=== PATIENT | female | born 1970 | race American Indian/Alaskan Native ===

== ENCOUNTER 2017-08-13 09:54 | Inpatient (IN) | payer MEDICAID, OTHER ==
--- NOTE | 2017-08-13 11:08 | C.PDOC ---
History Of Present Illness 47 y/o female with htn, cva, esrd (M/W/F) c/o epigastric pain since thursday. pt sts she was seen at [facility] [place] for same , told 'her levels were elevated' and discharged home with no pain medications for pancreatitis. pt sts pain persists , with no associated nausea or diarrhea. no fever. pt sts one episode of vomiting yesterday. no cp or sob. pt is limited historian. Time Seen by Provider: 08/13/17 10:11 Chief Complaint (Nursing): Abdominal Pain History Per: Patient History/Exam Limitations: no limitations Onset/Duration Of Symptoms: Days Current Symptoms Are (Timing): Still Present Past Medical History Reviewed: Historical Data, Nursing Documentation, Vital Signs Vital Signs: Last Vital Signs Temp 98.1 F 08/13/17 16:45 Pulse 74 08/13/17 16:45 Resp 20 08/13/17 16:45 BP 152/94 H 08/13/17 16:45 Pulse Ox 98 08/13/17 17:44 - Medical History PMH: CHF, HTN, End Stage Renal Disease Surgical History: No Surg Hx Family History: States: No Known Family Hx - Social History Hx Alcohol Use: No Hx Substance Use: No - Immunization History Hx Tetanus Toxoid Vaccination: No Hx Influenza Vaccination: No Hx Pneumococcal Vaccination: No Review Of Systems Constitutional: Negative for: Fever, Chills Gastrointestinal: Positive for: Abdominal Pain. Negative for: Nausea, Vomiting , Diarrhea Genitourinary: Negative for: Dysuria, Vaginal Bleeding Musculoskeletal: Negative for: Back Pain Skin: Negative for: Rash Physical Exam - Physical Exam Appears: Non-toxic, No Acute Distress Skin: Warm, Dry, No Rash Head: Atraumatic, Normacephalic Eye(s): bilateral: Normal Inspection Oral Mucosa: Moist Neck: Normal ROM, Supple Cardiovascular: Rhythm Regular Respiratory: Normal Breath Sounds, No Rales, No Rhonchi, No Wheezing Gastrointestinal/Abdominal: Soft, Tenderness (mi,delvis; epigastric tenderness), No Distention, No Guarding, No Rebound Extremity: No Pedal Edema, Capillary Refill (<2 seconds) Neurological/Psych: Oriented x3, Normal Speech, Normal Cognition ED Course And Treatment - Laboratory Results Result Diagrams: 08/13/17 14:00 08/13/17 14:00 O2 Sat by Pulse Oximetry: 98 (RA) Pulse Ox Interpretation: Normal Medical Decision Making Medical Decision Making: pt with hx pancreatitis, c/o epigastric pain x 4 days. long delay in getting blood from patient given she is hd patient and has difficult vasculature. pt given 2 percocet with decreased pain, now reports pain 8/10 while lying in no apparent discomfort on her stretcher. pt to be admottied to [facility] , keep npo and contact nephology. discussed need for hd tomorrow with Dr Escalona, covering for Dr Garcia. Disposition Discussed With : Phylicia Vega Doctor Will See Patient In The: Office Counseled Patient/Family Regarding: Diagnosis - Disposition Disposition: HOSPITALIZED Disposition Time: 15:28 Condition: GOOD - Clinical Impression Clinical Impression: Pancreatitis - PA / CONSOLE OPERATOR / Resident Statement MD/DO has reviewed & agrees with the documentation as recorded. - Scribe Statement The provider has reviewed the documentation as recorded by the Ravinibjesus Gallo All medical record entries made by the Ravinibjesus were at my direction and personally dictated by me. I have reviewed the chart and agree that the record accurately reflects my personal performance of the history, physical exam, medical decision making, and the department course for this patient. I have also personally directed, reviewed, and agree with the discharge instructions and disposition.
[2017-08-13] MEDS ORDERED: Oxycodone/Acetaminophen 5/325 mg Tab PO STA (12:41)
[2017-08-13] MEDS ORDERED: Oxycodone/Acetaminophen 5/325 mg Tab ONE (12:56)
[2017-08-13 14:05] LABS: BASO # 0.1 K/uL (0.0-0.2); BASO % 0.6 % (0.0-2.0); EOS # 0.1 K/uL (0.0-0.7); EOS % 1.4 % (0.0-4.0); HEMOGLOBIN 9.9 g/dL (11.0-16.0); LYMPH # 1.8 K/uL (1.0-4.3); LYMPH % 21.1 % (20.0-40.0); MEAN CELL VOLUME 77.8 fL (81.0-99.0); MEAN CORPUSCULAR HEMOGLOBIN 25.9 pg (27.0-31.0); MEAN CORPUSCULAR HGB CONC 33.3 g/dL (33.0-37.0); MEAN PLATELET VOLUME 8.2 fL (7.2-11.7); MONO # 0.6 K/uL (0.0-0.8); MONO % 6.8 % (0.0-10.0); NEUT # 5.9 K/uL (1.8-7.0); NEUT % 70.1 % (50.0-75.0); RBC 3.82 Mil/uL (3.80-5.20); RED CELL DISTRIBUTION WIDTH 19.4 % (11.5-14.5); WHITE BLOOD COUNT 8.4 K/uL (4.8-10.8)
[2017-08-13 14:14] LABS: INR 1.1; PROTHROMBIN TIME 11.8 SECONDS (9.7-12.2)
[2017-08-13 14:38] LABS: ALB/GLOB RATIO 1.3 (1.0-2.1); ALBUMIN 4.3 g/dL (3.5-5.0); CALCIUM 9.6 mg/dl (8.6-10.4)
[2017-08-13] MEDS: Dextrose 5%/0.45% NS 1,000 ML IV SCH (18:15)
--- NOTE | 2017-08-13 18:30 | CP.PCM.HP ---
History of Present Illness - History of Present Illness History of Present Illness: pt came for abd pain nausea for few days and elevated lipase Present on Admission - Present on Admission Any Indicators Present on Admission: No Review of Systems - Review of Systems Systems not reviewed;Unavailable: Acuity of Condition - Constitutional Constitutional: Fatigue - EENT Eyes: As Per HPI Ears: As Per HPI Nose/Mouth/Throat: As Per HPI - Breasts Breasts: As Per HPI - Cardiovascular Cardiovascular: As Per HPI - Respiratory Respiratory: Dyspnea on Exertion - Gastrointestinal Gastrointestinal: Abdominal Pain, Bloating, Nausea - Genitourinary Additional comments: esrf on dialysis - Reproductive: Female Reproductive:Female: As Per HPI - Menstruation Menstruation: As Per HPI - Musculoskeletal Musculoskeletal: As Per HPI - Integumentary Integumentary: As Per HPI - Psychiatric Psychiatric: As Per HPI - Hematologic/Lymphatic Hematologic: As Per HPI Past Patient History - Past Social History Smoking Status: Current Some Days Smoker - CARDIAC Hx Congestive Heart Failure: Yes Hx Hypertension: Yes - ENDOCRINE/METABOLIC Hx Diabetes Mellitus Type 2: Yes - PSYCHIATRIC Hx Substance Use: No Meds Allergies/Adverse Reactions: Allergies Allergy/AdvReac Type Severity Reaction Status Date / Time No Known Allergies Allergy Verified 08/13/17 10:06 Physical Exam - Constitutional Appears: In Acute Distress - Head Exam Head Exam: NORMAL INSPECTION - ENT Exam ENT Exam: Mucous Membranes Dry - Neck Exam Neck exam: Positive for: Full Rom - Respiratory Exam Respiratory Exam: Decreased Breath Sounds - Cardiovascular Exam Cardiovascular Exam: REGULAR RHYTHM - GI/Abdominal Exam GI & Abdominal Exam: Distended, Tenderness - Rectal Exam Rectal Exam: NORMAL INSPECTION - Extremities Exam Extremities exam: Positive for: normal inspection - Back Exam Back exam: NORMAL INSPECTION - Neurological Exam Neurological exam: Alert, Oriented x3 - Psychiatric Exam Psychiatric exam: Normal Mood - Skin Skin Exam: Normal Color Results - Vital Signs Recent Vital Signs: Last Vital Signs Temp 98.1 F 08/13/17 16:45 Pulse 74 08/13/17 16:45 Resp 20 08/13/17 16:45 BP 152/94 H 08/13/17 16:45 Pulse Ox 98 08/13/17 17:46 - Labs Result Diagrams: 08/13/17 14:00 08/13/17 14:00 Labs: Laboratory Results - last 24 hr 08/13/17 08/13/17 08/13/17 14:00 14:00 14:00 WBC 8.4 RBC 3.82 Hgb 9.9 L Hct 29.7 L MCV 77.8 L MCH 25.9 L MCHC 33.3 RDW 19.4 H Plt Count 212 MPV 8.2 Neut % (Auto) 70.1 Lymph % (Auto) 21.1 [place] % (Auto) 6.8 Eos % (Auto) 1.4 Baso % (Auto) 0.6 Neut # (Auto) 5.9 Lymph # (Auto) 1.8 [place] # (Auto) 0.6 Eos # (Auto) 0.1 Baso # (Auto) 0.1 PT 11.8 INR 1.1 APTT 32 Sodium 144 Potassium 3.7 Chloride 94 L Carbon Dioxide 36 H Anion Gap 18 BUN 44 H Creatinine 6.1 H Est GFR ( Amer) 9 Est GFR (Non-Af Amer) 7 Random Glucose 102 Calcium 9.6 Total Bilirubin 0.5 AST 19 ALT 19 Alkaline Phosphatase 322 H Total Protein 7.6 Albumin 4.3 Globulin 3.3 Albumin/Globulin Ratio 1.3 Lipase 642 H Assessment & Plan - Assessment and Plan (Free Text) Assessment: ac pancreatitis ESRF ON DIALYSIS HTN ANEAMIA Plan: ADMIT NPO REPEAT [facility] DIALYSIS - Date & Time Date: 08/13/17 Time: 18:33
[2017-08-14 04:33] LABS: SQUAMOUS EPITHIAL 11 /hpf (0-5); URINE BACTERIA RARE (<OCC); URINE BILIRUBIN NEGATIVE (NEGATIVE); URINE BLOOD 1+ (NEGATIVE); URINE CLARITY Hazy (Clear); URINE COLOR Yellow (YELLOW); URINE GLUCOSE (UA) NORMAL (Normal); URINE LEUKOCYTE ESTERASE TRACE Leu/uL (Negative); URINE PROTEIN 2+ mg/dL (NEGATIVE); URINE UROBILINOGEN NORMAL mg/dL (0.2-1.0)
[2017-08-14 04:45] LABS: BARBITURATES, UR NEGATIVE (NEGATIVE); BENZODIAZEPINES, UR NEGATIVE (NEGATIVE); OPIATES, UR NEGATIVE (NEGATIVE); PHENCYCLIDINE, UR NEGATIVE (NEGATIVE)
[2017-08-14] MEDS: Dextrose 5%/0.45% NS 1,000 ML IV SCH ×2 (06:16→21:28)
[2017-08-14] MEDS ORDERED: Ciprofloxacin 400mg/200ml D5W 400 MG/200 ML BAG IVPB STA (10:53)
--- NOTE | 2017-08-14 11:10 | CP.PCM.PN ---
Subjective - Date & Time of Evaluation Date of Evaluation: 08/14/17 Time of Evaluation: 11:08 - Subjective Subjective: still has mid abd pain no nausea still npo Objective - Vital Signs/Intake and Output Vital Signs (last 24 hours): Temp Pulse Resp BP Pulse Ox 98.1 F 80 20 184/63 H 98 08/14/17 08:38 08/14/17 08:38 08/14/17 08:38 08/14/17 08:38 08/14/17 08:38 Intake and Output: 08/14/17 08/14/17 06:59 18:59 Intake Total 1200 Output Total 0 Balance 1200 - Medications Medications: Current Medications Heparin Sodium (Porcine) (Heparin) 5,000 units SC Q12 [facility] Last Admin: 08/14/17 09:47 Dose: 5,000 units Dextrose/Sodium Chloride (Dextrose 5%/0.45% Ns 1000 Ml) 1,000 mls @ 80 mls/hr IV .[id number] [facility] Last Admin: 08/14/17 06:16 Dose: 80 mls/hr Ciprofloxacin (Cipro 400mg/200ml Dsw) 400 mg in 200 mls @ 133 mls/hr IVPB STAT STA PRN Reason: Protocol Stop: 08/14/17 12:23 Losartan Potassium (Cozaar) 100 mg PO DAILY [facility] Last Admin: 08/14/17 09:47 Dose: 100 mg Morphine Sulfate (Morphine) 1 mg IVP Q6 PRN PRN Reason: Pain, moderate (4-7) Last Admin: 08/14/17 09:47 Dose: 1 mg - Labs Labs: 08/13/17 14:00 08/13/17 14:00 PT 11.8 SECONDS (9.7-12.2) 08/13/17 14:00 INR 1.1 08/13/17 14:00 APTT 32 SECONDS (21-34) 08/13/17 14:00 - Constitutional Appears: Non-toxic - Head Exam Head Exam: NORMAL INSPECTION - Eye Exam Eye Exam: Normal appearance Pupil Exam: NORMAL ACCOMODATION - ENT Exam ENT Exam: Mucous Membranes Moist - Neck Exam Neck Exam: Full ROM - Respiratory Exam Respiratory Exam: Clear to Ausculation Bilateral - Cardiovascular Exam Cardiovascular Exam: REGULAR RHYTHM - GI/Abdominal Exam GI & Abdominal Exam: Tenderness, Normal Bowel Sounds - Back Exam Back Exam: NORMAL INSPECTION - Neurological Exam Neurological Exam: Normal Gait - Psychiatric Exam Psychiatric exam: Normal Affect - Skin Skin Exam: Normal Color Assessment and Plan - Assessment and Plan (Free Text) Assessment: acute pancreatitis ESRF HTN DM Plan: CONT NPO REATE LAB
--- NOTE | 2017-08-14 13:07 | CP.PCM.CON ---
History of Present Illness - History of Present Illness History of Present Illness: Nephrology Consultation Note: Assessment: Stable chronic pancreatitis Hypertensive Chronic Kidney Disease (I12.0) End stage renal disease (N18.6) dependence on hemodialysis (Z99.2) (MWF) via AVF Anemia (D64.9), Hyperphosphatemia (E83.39), Secondary Hyperparathyroidism (E21.1 ), HTN (I12.0) Plan: Will plan for HD today as ordered. Continue with Nephrovite 1 tab/day. PRBC as needed for anemia. on DARINEL with dialysis as last Hb 9.9 Continue with phos binders, check phos level Continue with calcitriol. BP control with meds as ordered. Patient on RAAS jhony as losartan 100 mg/day Glycemic control, Dialysis consistent diet Further work up/management as per primary team Dose meds/antibiotics (if needed) for ESRD status. Avoid fleets enema/magnesium based laxatives. Thanks for allowing me to participate in care of your patient. Will follow patient with you. Please call if any Qs Dr Ananda Escalona Office: [phone] Chief Complaint; pain abdomen HPI: Pt is a 47 F with hx of ESRD on hemodialysis (MWF) via AVF , last dialysis wed, chronic anemia, hyperphosphatemia, secondary hyperparathyroidism, hypertension and chronic pancreatitis presented with complaints of pain abdomen Renal consult requested for ESRD management. ROS: pt not much interested in talking Cardiovascular: No chest pain. Pulmonary: No shortness of breath Gastrointestinal: improved abdominal pain No nausea. No vomiting. Genitourinary: No pain while urinating. Denies blood in urine. All other negative except as mentioned in HPI Physical Examination: General Appearance: Comfortable, in no acute respiratory distress, somewhat unco -operative . Vitals reviewed and noted as below Head; Atraumatic, normocephalic ENT: no ulcers no thrush. Tongue is midline. Oropharynx: no rash or ulcers. EYES: Pupils are equal, round and reactive to light accommodation. Eye muscles and extraocular movement intact. Sclera is anicteric. Neck; supple no lymphadenopathy, no thyromegaly or bruit Lungs: Normal respiratory rate/effort. Breath sounds bilateral equal and clear Heart: Normal rate. s1s2 normal. No rub or gallop. Extremities: no edema. No varicose veins Neurological: Patient is alert, awake and oriented to person, place and time. No focal deficit. Strength bilateral appropriate and equal Skin: Warm and dry. Normal turgor. No rash. Palpitation: Normal elasticity for age Abdomen: Abdomen is soft. Bowel sounds +. There is no abdominal tenderness, no guarding/rigidity or organomegaly Psych: normal insight and flat affect/mood MSK: no joint tenderness or swelling. Digits and nails normal, no deformity : kidney or bladder not palpable Access: AVF Labs/imaging reviewed. Past medical history, past surgical history, family history, social history, allergy reviewed and noted as below Family Hx: no hx of CKD. Non contributory Past Patient History - Past Medical History & Family History Past Medical History?: Yes - Past Social History Smoking Status: Never Smoked - CARDIAC Hx Congestive Heart Failure: Yes Hx Hypertension: Yes - RENAL Date of Last Dialysis Treatment: 08/12/17 - ENDOCRINE/METABOLIC Hx Diabetes Mellitus Type 2: Yes - MUSCULOSKELETAL/RHEUMATOLOGICAL Hx Falls: No - PSYCHIATRIC Hx Substance Use: No Meds Allergies/Adverse Reactions: Allergies Allergy/AdvReac Type Severity Reaction Status Date / Time No Known Allergies Allergy Verified 08/13/17 10:06 - Medications Medications: Current Medications Epoetin Rosalio (Procrit) 4,000 unit IV MWF [facility] Heparin Sodium (Porcine) (Heparin) 5,000 units SC Q12 [facility] Last Admin: 08/14/17 09:47 Dose: 5,000 units Dextrose/Sodium Chloride (Dextrose 5%/0.45% Ns 1000 Ml) 1,000 mls @ 80 mls/hr IV .[id number] [facility] Last Admin: 08/14/17 06:16 Dose: 80 mls/hr Losartan Potassium (Cozaar) 100 mg PO DAILY [facility] Last Admin: 08/14/17 09:47 Dose: 100 mg Morphine Sulfate (Morphine) 1 mg IVP Q6 PRN PRN Reason: Pain, moderate (4-7) Last Admin: 08/14/17 09:47 Dose: 1 mg Vitamin B Complex/Vit C/Folic Acid (Nephro-Divya) 1 tab PO 0800 [facility] Results - Vital Signs Recent Vital Signs: Last Vital Signs Temp 98.1 F 08/14/17 08:38 Pulse 80 08/14/17 08:38 Resp 20 08/14/17 08:38 BP 184/63 H 08/14/17 08:38 Pulse Ox 98 08/14/17 08:38 - Labs Result Diagrams: 08/13/17 14:00 08/13/17 14:00 Labs: Laboratory Results - last 24 hr 08/13/17 08/13/17 08/13/17 14:00 14:00 14:00 WBC 8.4 RBC 3.82 Hgb 9.9 L Hct 29.7 L MCV 77.8 L MCH 25.9 L MCHC 33.3 RDW 19.4 H Plt Count 212 MPV 8.2 Neut % (Auto) 70.1 Lymph % (Auto) 21.1 [place] % (Auto) 6.8 Eos % (Auto) 1.4 Baso % (Auto) 0.6 Neut # (Auto) 5.9 Lymph # (Auto) 1.8 [place] # (Auto) 0.6 Eos # (Auto) 0.1 Baso # (Auto) 0.1 PT 11.8 INR 1.1 APTT 32 Sodium 144 Potassium 3.7 Chloride 94 L Carbon Dioxide 36 H Anion Gap 18 BUN 44 H Creatinine 6.1 H Est GFR ( Amer) 9 Est GFR (Non-Af Amer) 7 POC Glucose (mg/dL) Random Glucose 102 Calcium 9.6 Total Bilirubin 0.5 AST 19 ALT 19 Alkaline Phosphatase 322 H Total Protein 7.6 Albumin 4.3 Globulin 3.3 Albumin/Globulin Ratio 1.3 Lipase 642 H Urine Color Urine Clarity Urine pH Ur Specific [place] Urine Protein Urine Glucose (UA) Urine Ketones Urine Blood Urine Nitrate Urine Bilirubin Urine Urobilinogen Ur Leukocyte Esterase Urine WBC (Auto) Urine RBC (Auto) Ur Squamous Epith Cells Urine Bacteria Urine Opiates Screen Urine Methadone Screen Ur Barbiturates Screen Ur Phencyclidine Scrn Ur Amphetamines Screen U Benzodiazepines Scrn U Oth Cocaine Metabols U Cannabinoids Screen 08/14/17 08/14/17 08/14/17 04:24 04:24 08:01 WBC RBC Hgb Hct MCV MCH MCHC RDW Plt Count MPV Neut % (Auto) Lymph % (Auto) [place] % (Auto) Eos % (Auto) Baso % (Auto) Neut # (Auto) Lymph # (Auto) [place] # (Auto) Eos # (Auto) Baso # (Auto) PT INR APTT Sodium Potassium Chloride Carbon Dioxide Anion Gap BUN Creatinine Est GFR ( Amer) Est GFR (Non-Af Amer) POC Glucose (mg/dL) Random Glucose Calcium Total Bilirubin AST ALT Alkaline Phosphatase Total Protein Albumin Globulin Albumin/Globulin Ratio Lipase 296 Urine Color Yellow Urine Clarity Hazy Urine pH 9.0 Ur Specific [place] 1.009 Urine Protein 2+ H Urine Glucose (UA) Normal Urine Ketones Negative Urine Blood 1+ H Urine Nitrate Negative Urine Bilirubin Negative Urine Urobilinogen Normal Ur Leukocyte Esterase Trace Urine WBC (Auto) 6 H Urine RBC (Auto) 11 H Ur Squamous Epith Cells 11 H Urine Bacteria Rare Urine Opiates Screen Negative Urine Methadone Screen Negative Ur Barbiturates Screen Negative Ur Phencyclidine Scrn Negative Ur Amphetamines Screen Negative U Benzodiazepines Scrn Negative U Oth Cocaine Metabols Negative U Cannabinoids Screen Negative 08/14/17 11:15 WBC RBC Hgb Hct MCV MCH MCHC RDW Plt Count MPV Neut % (Auto) Lymph % (Auto) [place] % (Auto) Eos % (Auto) Baso % (Auto) Neut # (Auto) Lymph # (Auto) [place] # (Auto) Eos # (Auto) Baso # (Auto) PT INR APTT Sodium Potassium Chloride Carbon Dioxide Anion Gap BUN Creatinine Est GFR ( Amer) Est GFR (Non-Af Amer) POC Glucose (mg/dL) 107 Random Glucose Calcium Total Bilirubin AST ALT Alkaline Phosphatase Total Protein Albumin Globulin Albumin/Globulin Ratio Lipase Urine Color Urine Clarity Urine pH Ur Specific [place] Urine Protein Urine Glucose (UA) Urine Ketones Urine Blood Urine Nitrate Urine Bilirubin Urine Urobilinogen Ur Leukocyte Esterase Urine WBC (Auto) Urine RBC (Auto) Ur Squamous Epith Cells Urine Bacteria Urine Opiates Screen Urine Methadone Screen Ur Barbiturates Screen Ur Phencyclidine Scrn Ur Amphetamines Screen U Benzodiazepines Scrn U Oth Cocaine Metabols U Cannabinoids Screen
[2017-08-14] MEDS: EPOETIN ALFA 4,000 UNIT/ML ML Dialysis IV SCH (15:52)
[2017-08-14] MEDS ORDERED: Dextrose 50% SYRINGE Inj (50 ml) IV ONE (18:00)
[2017-08-15] MEDS: Dextrose 5%/0.45% NS 1,000 ML IV SCH ×2 (02:22→07:45)
[2017-08-15] MEDS: Multivitamin Vitamin B Complex (Nephro-Vite) Tab PO SCH (08:03)
--- NOTE | 2017-08-15 10:06 | CP.PCM.PN ---
Subjective - Date & Time of Evaluation Date of Evaluation: 08/15/17 Time of Evaluation: 10:04 - Subjective Subjective: pt has no nausea no pain hungry lipase dowen will start diet Objective - Vital Signs/Intake and Output Vital Signs (last 24 hours): Temp Pulse Resp BP Pulse Ox 98.9 F 68 20 154/94 H 96 08/15/17 08:57 08/15/17 08:57 08/15/17 08:57 08/15/17 08:57 08/15/17 08:57 Intake and Output: 08/15/17 08/15/17 06:59 18:59 Intake Total 650 Balance 650 - Medications Medications: Current Medications Amlodipine Besylate (Norvasc) 5 mg PO DAILY [facility] Epoetin Rosalio (Procrit) 4,000 unit IV MWF [facility] Last Admin: 08/14/17 15:52 Dose: 4,000 unit Heparin Sodium (Porcine) (Heparin) 5,000 units SC Q12 [facility] Last Admin: 08/15/17 09:26 Dose: 5,000 units Dextrose/Sodium Chloride (Dextrose 5%/0.45% Ns 1000 Ml) 1,000 mls @ 80 mls/hr IV .[id number] [facility] Last Admin: 08/15/17 02:22 Dose: 80 mls/hr Losartan Potassium (Cozaar) 100 mg PO DAILY [facility] Last Admin: 08/15/17 09:26 Dose: 100 mg Morphine Sulfate (Morphine) 1 mg IVP Q6 PRN PRN Reason: Pain, moderate (4-7) Last Admin: 08/15/17 06:27 Dose: 1 mg Vitamin B Complex/Vit C/Folic Acid (Nephro-Divya) 1 tab PO 0800 [facility] Last Admin: 08/15/17 08:03 Dose: 1 tab - Labs Labs: 08/13/17 14:00 08/13/17 14:00 PT 11.8 SECONDS (9.7-12.2) 08/13/17 14:00 INR 1.1 08/13/17 14:00 APTT 32 SECONDS (21-34) 08/13/17 14:00 - Constitutional Appears: Non-toxic - Head Exam Head Exam: NORMAL INSPECTION - Eye Exam Eye Exam: Normal appearance Pupil Exam: NORMAL ACCOMODATION - ENT Exam ENT Exam: Mucous Membranes Moist - Neck Exam Neck Exam: Full ROM - Respiratory Exam Respiratory Exam: Clear to Ausculation Bilateral - Cardiovascular Exam Cardiovascular Exam: REGULAR RHYTHM - GI/Abdominal Exam GI & Abdominal Exam: Soft - Rectal Exam Rectal Exam: NORMAL INSPECTION - Extremities Exam Extremities Exam: Normal Inspection - Back Exam Back Exam: NORMAL INSPECTION - Neurological Exam Neurological Exam: Alert, Normal Gait, Oriented x3 - Psychiatric Exam Psychiatric exam: Normal Affect - Skin Skin Exam: Normal Color Assessment and Plan - Assessment and Plan (Free Text) Assessment: ac pancreatitis improved dm esrf Plan: start diet if tolerated d/c home
--- NOTE | 2017-08-15 18:18 | CP.PCM.PN ---
Subjective - Date & Time of Evaluation Date of Evaluation: 08/15/17 Time of Evaluation: 18:17 - Subjective Subjective: Nephrology Consultation Note: Assessment: Stable chronic pancreatitis Hypertensive Chronic Kidney Disease (I12.0) End stage renal disease (N18.6) dependence on hemodialysis (Z99.2) (MWF) via AVF Anemia (D64.9), Hyperphosphatemia (E83.39), Secondary Hyperparathyroidism (E21.1 ), HTN (I12.0) Plan: Will plan for HD thursday as ordered. Continue with Nephrovite 1 tab/day. PRBC as needed for anemia. on DARINEL with dialysis as last Hb 9.9 Continue with phos binders, check phos level Continue with calcitriol. BP control with meds as ordered. Patient on RAAS jhony as losartan 100 mg/ day. started norvasc as well Glycemic control, Dialysis consistent diet Further work up/management as per primary team Dose meds/antibiotics (if needed) for ESRD status. Avoid fleets enema/magnesium based laxatives. Thanks for allowing me to participate in care of your patient. Will follow patient with you. Please call if any Qs Dr Ananda Escalona Office: [phone] Chief Complaint; pain abdomen HPI: Pt is a 47 F with hx of ESRD on hemodialysis (MWF) via AVF , last dialysis wed, chronic anemia, hyperphosphatemia, secondary hyperparathyroidism, hypertension and chronic pancreatitis presented with complaints of pain abdomen Renal consult requested for ESRD management. ROS: pt not much interested in talking Cardiovascular: No chest pain. Pulmonary: No shortness of breath Gastrointestinal: improved abdominal pain No nausea. No vomiting. Genitourinary: No pain while urinating. Denies blood in urine. All other negative except as mentioned in HPI Physical Examination: General Appearance: Comfortable, in no acute respiratory distress, somewhat unco -operative . Vitals reviewed and noted as below Head; Atraumatic, normocephalic ENT: no ulcers no thrush. Tongue is midline. Oropharynx: no rash or ulcers. EYES: Pupils are equal, round and reactive to light accommodation. Eye muscles and extraocular movement intact. Sclera is anicteric. Neck; supple no lymphadenopathy, no thyromegaly or bruit Lungs: Normal respiratory rate/effort. Breath sounds bilateral equal and clear Heart: Normal rate. s1s2 normal. No rub or gallop. Extremities: no edema. No varicose veins Neurological: Patient is alert, awake and oriented to person, place and time. No focal deficit. Strength bilateral appropriate and equal Skin: Warm and dry. Normal turgor. No rash. Palpitation: Normal elasticity for age Abdomen: Abdomen is soft. Bowel sounds +. There is no abdominal tenderness, no guarding/rigidity or organomegaly Psych: normal insight and flat affect/mood MSK: no joint tenderness or swelling. Digits and nails normal, no deformity : kidney or bladder not palpable Access: AVF Labs/imaging reviewed. Past medical history, past surgical history, family history, social history, allergy reviewed and noted as below Family Hx: no hx of CKD. Non contributory Objective - Vital Signs/Intake and Output Vital Signs (last 24 hours): Temp Pulse Resp BP Pulse Ox 98.6 F 72 20 151/87 H 100 08/15/17 16:00 08/15/17 16:00 08/15/17 16:00 08/15/17 16:00 08/15/17 16:00 Intake and Output: 08/15/17 08/15/17 06:59 18:59 Intake Total 1410 Balance 1410 - Medications Medications: Current Medications Amlodipine Besylate (Norvasc) 5 mg PO DAILY [facility] Last Admin: 08/15/17 10:38 Dose: 5 mg Ciprofloxacin (Cipro) 250 mg PO BID [facility] PRN Reason: Protocol Last Admin: 08/15/17 11:05 Dose: 250 mg Epoetin Rosalio (Procrit) 4,000 unit IV MWF [facility] Last Admin: 08/14/17 15:52 Dose: 4,000 unit Heparin Sodium (Porcine) (Heparin) 5,000 units SC Q12 [facility] Last Admin: 08/15/17 09:26 Dose: 5,000 units Losartan Potassium (Cozaar) 100 mg PO DAILY [facility] Last Admin: 08/15/17 09:26 Dose: 100 mg Morphine Sulfate (Morphine) 1 mg IVP Q6 PRN PRN Reason: Pain, moderate (4-7) Last Admin: 08/15/17 14:15 Dose: 1 mg Vitamin B Complex/Vit C/Folic Acid (Nephro-Divya) 1 tab PO 0800 [facility] Last Admin: 08/15/17 08:03 Dose: 1 tab - Labs Labs: 07/05/18 14:00 08/13/17 14:00 PT 11.8 SECONDS (9.7-12.2) 08/13/17 14:00 INR 1.1 08/13/17 14:00 APTT 32 SECONDS (21-34) 08/13/17 14:00
[2017-08-16] MEDS: Multivitamin Vitamin B Complex (Nephro-Vite) Tab PO SCH (08:24)
--- NOTE | 2017-08-16 11:58 | CP.PCM.PN ---
Subjective - Date & Time of Evaluation Date of Evaluation: 08/16/17 Time of Evaluation: 11:58 - Subjective Subjective: Nephrology Consultation Note: Assessment: Stable Acute on chronic pancreatitis Hypertensive Chronic Kidney Disease (I12.0) End stage renal disease (N18.6) dependence on hemodialysis (Z99.2) (MWF) via AVF Anemia (D64.9), Hyperphosphatemia (E83.39), Secondary Hyperparathyroidism (E21.1 ), HTN (I12.0) Plan: Will plan for HD thursday as ordered. Continue with Nephrovite 1 tab/day. PRBC as needed for anemia. on DARINEL with dialysis as last Hb 9.9 Continue with phos binders, check phos level Continue with calcitriol. BP control with meds as ordered. Patient on RAAS jhony as losartan 100 mg/ day. started norvasc as well Glycemic control, Dialysis consistent diet Further work up/management as per primary team Dose meds/antibiotics (if needed) for ESRD status. Avoid fleets enema/magnesium based laxatives. Thanks for allowing me to participate in care of your patient. Will follow patient with you. Please call if any Qs Dr Ananda Escalona Office: [phone] Chief Complaint; pain abdomen HPI: Pt is a 47 F with hx of ESRD on hemodialysis (MWF) via AVF , last dialysis wed, chronic anemia, hyperphosphatemia, secondary hyperparathyroidism, hypertension and chronic pancreatitis presented with complaints of pain abdomen Renal consult requested for ESRD management. ROS: pt not much interested in talking Cardiovascular: No chest pain. Pulmonary: No shortness of breath Gastrointestinal: improved abdominal pain No nausea. No vomiting. Genitourinary: No pain while urinating. Denies blood in urine. All other negative except as mentioned in HPI Physical Examination: General Appearance: Comfortable, in no acute respiratory distress, somewhat unco -operative . Vitals reviewed and noted as below Head; Atraumatic, normocephalic ENT: no ulcers no thrush. Tongue is midline. Oropharynx: no rash or ulcers. EYES: Pupils are equal, round and reactive to light accommodation. Eye muscles and extraocular movement intact. Sclera is anicteric. Neck; supple no lymphadenopathy, no thyromegaly or bruit Lungs: Normal respiratory rate/effort. Breath sounds bilateral equal and clear Heart: Normal rate. s1s2 normal. No rub or gallop. Extremities: no edema. No varicose veins Neurological: Patient is alert, awake and oriented to person, place and time. No focal deficit. Strength bilateral appropriate and equal Skin: Warm and dry. Normal turgor. No rash. Palpitation: Normal elasticity for age Abdomen: Abdomen is soft. Bowel sounds +. There is no abdominal tenderness, no guarding/rigidity or organomegaly Psych: normal insight and flat affect/mood MSK: no joint tenderness or swelling. Digits and nails normal, no deformity : kidney or bladder not palpable Access: AVF Labs/imaging reviewed. Past medical history, past surgical history, family history, social history, allergy reviewed and noted as below Family Hx: no hx of CKD. Non contributory Objective - Vital Signs/Intake and Output Vital Signs (last 24 hours): Temp Pulse Resp BP Pulse Ox 98.4 F 71 20 146/85 97 08/16/17 08:00 08/16/17 08:00 08/16/17 08:00 08/16/17 08:00 08/16/17 08:00 Intake and Output: 08/16/17 08/16/17 06:59 18:59 Intake Total 120 Balance 120 - Medications Medications: Current Medications Amlodipine Besylate (Norvasc) 5 mg PO DAILY [facility] Last Admin: 08/16/17 09:38 Dose: 5 mg Ciprofloxacin (Cipro) 250 mg PO BID [facility] PRN Reason: Protocol Last Admin: 08/16/17 09:38 Dose: 250 mg Epoetin Rosalio (Procrit) 4,000 unit IV MWF [facility] Last Admin: 08/14/17 15:52 Dose: 4,000 unit Heparin Sodium (Porcine) (Heparin) 5,000 units SC Q12 [facility] Last Admin: 08/16/17 09:41 Dose: Not Given Losartan Potassium (Cozaar) 100 mg PO DAILY [facility] Last Admin: 08/16/17 09:38 Dose: 100 mg Morphine Sulfate (Morphine) 1 mg IVP Q6 PRN PRN Reason: Pain, moderate (4-7) Last Admin: 08/16/17 02:16 Dose: 1 mg Vitamin B Complex/Vit C/Folic Acid (Nephro-Divya) 1 tab PO 0800 [facility] Last Admin: 08/16/17 08:24 Dose: 1 tab - Labs Labs: 08/13/17 14:00 08/13/17 14:00 PT 11.8 SECONDS (9.7-12.2) 08/13/17 14:00 INR 1.1 08/13/17 14:00 APTT 32 SECONDS (21-34) 08/13/17 14:00
--- NOTE | 2017-08-16 12:45 | CP.PCM.PN ---
Subjective - Date & Time of Evaluation Date of Evaluation: 08/16/17 Time of Evaluation: 12:43 - Subjective Subjective: on liquid diet less pain no nausea Objective - Vital Signs/Intake and Output Vital Signs (last 24 hours): Temp Pulse Resp BP Pulse Ox 98.4 F 71 20 146/85 97 08/16/17 08:00 08/16/17 08:00 08/16/17 08:00 08/16/17 08:00 08/16/17 08:00 Intake and Output: 08/16/17 08/16/17 06:59 18:59 Intake Total 120 Balance 120 - Medications Medications: Current Medications Amlodipine Besylate (Norvasc) 5 mg PO DAILY [facility] Last Admin: 08/16/17 09:38 Dose: 5 mg Ciprofloxacin (Cipro) 250 mg PO BID [facility] PRN Reason: Protocol Last Admin: 08/16/17 09:38 Dose: 250 mg Epoetin Rosalio (Procrit) 4,000 unit IV MWF [facility] Last Admin: 08/14/17 15:52 Dose: 4,000 unit Heparin Sodium (Porcine) (Heparin) 5,000 units SC Q12 [facility] Last Admin: 08/16/17 09:41 Dose: Not Given Losartan Potassium (Cozaar) 100 mg PO DAILY [facility] Last Admin: 08/16/17 09:38 Dose: 100 mg Morphine Sulfate (Morphine) 1 mg IVP Q6 PRN PRN Reason: Pain, moderate (4-7) Last Admin: 08/16/17 02:16 Dose: 1 mg Vitamin B Complex/Vit C/Folic Acid (Nephro-Divya) 1 tab PO 0800 [facility] Last Admin: 08/16/17 08:24 Dose: 1 tab - Labs Labs: 08/13/17 14:00 08/13/17 14:00 PT 11.8 SECONDS (9.7-12.2) 08/13/17 14:00 INR 1.1 08/13/17 14:00 APTT 32 SECONDS (21-34) 08/13/17 14:00 - Constitutional Appears: Non-toxic - Head Exam Head Exam: NORMAL INSPECTION - Eye Exam Eye Exam: Normal appearance - ENT Exam ENT Exam: Mucous Membranes Moist - Neck Exam Neck Exam: Normal Inspection - Respiratory Exam Respiratory Exam: Clear to Ausculation Bilateral - Cardiovascular Exam Cardiovascular Exam: REGULAR RHYTHM - GI/Abdominal Exam GI & Abdominal Exam: Normal Bowel Sounds - Rectal Exam Rectal Exam: NORMAL INSPECTION - Exam Exam: NORMAL INSPECTION - Extremities Exam Extremities Exam: Normal Inspection - Back Exam Back Exam: NORMAL INSPECTION - Neurological Exam Neurological Exam: Awake, Normal Gait, Oriented x3 - Psychiatric Exam Psychiatric exam: Normal Affect - Skin Skin Exam: Intact Assessment and Plan - Assessment and Plan (Free Text) Assessment: pancreatitis improving dm esrf generalised weekness Plan: increase diet pt for dialysis in am then d/c
[2017-08-17] MEDS: Multivitamin Vitamin B Complex (Nephro-Vite) Tab PO SCH (08:09)
[2017-08-17] MEDS: EPOETIN ALFA 4,000 UNIT/ML ML Dialysis IV SCH (10:47)
--- NOTE | 2017-08-17 12:24 | CP.PCM.PN ---
Subjective - Date & Time of Evaluation Date of Evaluation: 08/17/17 Time of Evaluation: 12:23 - Subjective Subjective: Nephrology Consultation Note: Assessment: Stable Acute on chronic pancreatitis Hypertensive Chronic Kidney Disease (I12.0) End stage renal disease (N18.6) dependence on hemodialysis (Z99.2) (MWF) via AVF Anemia (D64.9), Hyperphosphatemia (E83.39), Secondary Hyperparathyroidism (E21.1 ), HTN (I12.0) Plan: Will plan for HD today as ordered. Continue with Nephrovite 1 tab/day. PRBC as needed for anemia. on DARINEL with dialysis as last Hb 9.9 Continue with phos binders, check phos level BP control with meds as ordered. Patient on RAAS jhony as losartan 100 mg/ day. norvasc increased to 10 mg Glycemic control, Dialysis consistent diet Further work up/management as per primary team Dose meds/antibiotics (if needed) for ESRD status. Avoid fleets enema/magnesium based laxatives. d/c planning as per primary team. stable from renal perspective Thanks for allowing me to participate in care of your patient. Will follow patient with you. Please call if any Qs Dr Ananda Escalona Office: [phone] Chief Complaint; pain abdomen HPI: Pt is a 47 F with hx of ESRD on hemodialysis (MWF) via AVF , last dialysis wed, chronic anemia, hyperphosphatemia, secondary hyperparathyroidism, hypertension and chronic pancreatitis presented with complaints of pain abdomen Renal consult requested for ESRD management. ROS: Cardiovascular: No chest pain. Pulmonary: No shortness of breath Gastrointestinal: improved abdominal pain No nausea. No vomiting. Genitourinary: No pain while urinating. Denies blood in urine. All other negative except as mentioned in HPI Physical Examination: seen on HD General Appearance: Comfortable, in no acute respiratory distress co-operative . Vitals reviewed and noted as below Head; Atraumatic, normocephalic ENT: no ulcers no thrush. Tongue is midline. Oropharynx: no rash or ulcers. EYES: Pupils are equal, round and reactive to light accommodation. Eye muscles and extraocular movement intact. Sclera is anicteric. Neck; supple no lymphadenopathy, no thyromegaly or bruit Lungs: Normal respiratory rate/effort. Breath sounds bilateral equal and clear Heart: Normal rate. s1s2 normal. No rub or gallop. Extremities: no edema. No varicose veins Neurological: Patient is alert, awake and oriented to person, place and time. No focal deficit. Strength bilateral appropriate and equal Skin: Warm and dry. Normal turgor. No rash. Palpitation: Normal elasticity for age Abdomen: Abdomen is soft. Bowel sounds +. There is no abdominal tenderness, no guarding/rigidity or organomegaly Psych: normal insight and flat affect/mood MSK: no joint tenderness or swelling. Digits and nails normal, no deformity : kidney or bladder not palpable Access: AVF Labs/imaging reviewed. Past medical history, past surgical history, family history, social history, allergy reviewed and noted as below Family Hx: no hx of CKD. Non contributory Objective - Vital Signs/Intake and Output Vital Signs (last 24 hours): Temp Pulse Resp BP Pulse Ox 98 F 83 16 161/92 H 96 08/17/17 09:05 08/17/17 09:05 08/17/17 09:05 08/17/17 12:03 08/17/17 09:05 Intake and Output: 08/17/17 08/17/17 06:59 18:59 Intake Total 240 Balance 240 - Medications Medications: Current Medications Amlodipine Besylate (Norvasc) 10 mg PO QPM [facility] Ciprofloxacin (Cipro) 250 mg PO BID [facility] PRN Reason: Protocol Last Admin: 08/17/17 12:03 Dose: 250 mg Epoetin Rosalio (Procrit) 4,000 unit IV MWF [facility] Last Admin: 08/17/17 10:47 Dose: 4,000 unit Losartan Potassium (Cozaar) 100 mg PO DAILY [facility] Last Admin: 08/17/17 12:03 Dose: 100 mg Morphine Sulfate (Morphine) 1 mg IVP Q6 PRN PRN Reason: Pain, moderate (4-7) Last Admin: 08/16/17 02:16 Dose: 1 mg Vitamin B Complex/Vit C/Folic Acid (Nephro-Divya) 1 tab PO 0800 [facility] Last Admin: 08/17/17 08:09 Dose: 1 tab - Labs Labs: 08/13/17 14:00 08/13/17 14:00 PT 11.8 SECONDS (9.7-12.2) 08/13/17 14:00 INR 1.1 08/13/17 14:00 APTT 32 SECONDS (21-34) 08/13/17 14:00
[2017-08-17 12:58] VITALS: RESP 20
[2017-08-17 13:39] VITALS: PULSE 91; TEMP 98.4; O2SAT 100
[2017-08-17 14:18] VITALS: BP 145/93
--- NOTE | 2017-08-17 18:02 | CP.PCM.PN ---
Subjective - Date & Time of Evaluation Date of Evaluation: 08/17/17 Time of Evaluation: 11:00 - Subjective Subjective: Awake, alert, no acute distress. Objective - Vital Signs/Intake and Output Vital Signs (last 24 hours): Temp Pulse Resp BP Pulse Ox 98.4 F 91 H 20 145/93 H 100 08/17/17 13:00 08/17/17 13:00 08/17/17 13:00 08/17/17 14:15 08/17/17 13:00 Intake and Output: 08/17/17 08/17/17 06:59 18:59 Intake Total 240 200 Balance 240 200 - Labs Labs: 08/13/17 14:00 08/13/17 14:00 PT 11.8 SECONDS (9.7-12.2) 08/13/17 14:00 INR 1.1 08/13/17 14:00 APTT 32 SECONDS (21-34) 08/13/17 14:00 Assessment and Plan - Assessment and Plan (Free Text) Assessment: Patient admitted with abdominal pain, pancreatitis, seen and examined after dialysis today.Alert and orientedx 3 no acute pain or distress. Prescription given for the newly added amlodipine. Advised to follow up with PMD in 1 week.
== END 2017-08-17 16:02 | disposition home or self-care (01) | DRG 204 ==
LOC: C.ER 09:54 → C.9E 15:29 → C.3T 15:53 → OBSVTOIN 18:11
PROVIDERS: ADMIT Internal Medicine; ATTEND Internal Medicine
PROC: 5A1D70Z Performance of Urinary Filtration, Intermittent, Less than 6 Hours Per Day (ICD-10-PCS; principal; 2017-08-14)
PROC: 5A1D70Z Performance of Urinary Filtration, Intermittent, Less than 6 Hours Per Day (ICD-10-PCS; 2017-08-17)
DX: K85.90 Acute pancreatitis without necrosis or infection, unspecified (principal); I13.2 Hypertensive heart and chronic kidney disease with heart failure and with stage 5 chronic kidney disease, or end stage renal disease; E11.22 Type 2 diabetes mellitus with diabetic chronic kidney disease; I50.9 Heart failure, unspecified; N18.6 End stage renal disease; E83.39 Other disorders of phosphorus metabolism; D64.9 Anemia, unspecified; K86.1 Other chronic pancreatitis; N25.81 Secondary hyperparathyroidism of renal origin; F17.210 Nicotine dependence, cigarettes, uncomplicated; Z99.2 Dependence on renal dialysis

== ENCOUNTER 2017-09-19 03:18 | Inpatient (IN) | payer MEDICAID ==
[2017-09-19] MEDS ORDERED: Sodium Chloride 0.9% 1,000 ML IV ONE (03:53)
[2017-09-19] MEDS ORDERED: Sodium Chloride 0.9% 1,000 ML ONE (04:11)
[2017-09-19 04:20] LABS: BASO # 0.1 K/uL (0.0-0.2); BASO % 1.2 % (0.0-2.0); EOS # 0.1 K/uL (0.0-0.7); EOS % 1.9 % (0.0-4.0); HEMOGLOBIN 10.3 g/dL (11.0-16.0); LYMPH # 1.5 K/uL (1.0-4.3); LYMPH % 22.1 % (20.0-40.0); MEAN CELL VOLUME 79.2 fL (81.0-99.0); MEAN CORPUSCULAR HEMOGLOBIN 26.3 pg (27.0-31.0); MEAN CORPUSCULAR HGB CONC 33.2 g/dL (33.0-37.0); MEAN PLATELET VOLUME 8.4 fL (7.2-11.7); MONO # 0.4 K/uL (0.0-0.8); MONO % 6.3 % (0.0-10.0); NEUT # 4.6 K/uL (1.8-7.0); NEUT % 68.5 % (50.0-75.0); NRBC % 0.1 % (0.0-2.0); RBC 3.92 Mil/uL (3.80-5.20); RED CELL DISTRIBUTION WIDTH 17.3 % (11.5-14.5); WHITE BLOOD COUNT 6.7 K/uL (4.8-10.8)
[2017-09-19 04:35] LABS: ALB/GLOB RATIO 1.3 (1.0-2.1); ALBUMIN 4.3 g/dL (3.5-5.0); CALCIUM 9.4 mg/dl (8.6-10.4)
--- NOTE | 2017-09-19 05:12 | C.PDOC ---
History Of Present Illness 47 y/o female with htn, cva, esrd (M/W/F), hx of pancreatitis BIBA with c/o epigastric pain since early today associated with nausea, one episode of vomiting. pt sts pain persists later today. Otherwise, pt denies fever, cp ,sob , diarrhea, back pain. Pt admits, completed dialysis early Thursday. pt is limited historian Time Seen by Provider: 09/19/17 03:53 Chief Complaint (Nursing): Abdominal Pain History Per: Patient Past Medical History Reviewed: Historical Data, Nursing Documentation, Vital Signs Vital Signs: Last Vital Signs Temp 98.1 F 09/19/17 03:31 Pulse 83 09/19/17 03:31 Resp 20 09/19/17 03:31 BP 165/95 H 09/19/17 03:31 Pulse Ox 98 09/19/17 05:31 - Medical History PMH: CHF, HTN, Pancreatitis, End Stage Renal Disease - [facility] (08/13/17) Family History: States: No Known Family Hx - Social History Hx Alcohol Use: No Hx Substance Use: No - Immunization History Hx Tetanus Toxoid Vaccination: No Hx Influenza Vaccination: No Hx Pneumococcal Vaccination: No Review Of Systems Except As Marked, All Systems Reviewed And Found Negative. Constitutional: Negative for: Fever, Chills ENT: Negative for: Throat Pain Cardiovascular: Negative for: Chest Pain, Palpitations Respiratory: Negative for: Cough, Shortness of Breath Gastrointestinal: Positive for: Nausea, Vomiting, Abdominal Pain Musculoskeletal: Negative for: Neck Pain, Back Pain Skin: Negative for: Rash Neurological: Negative for: Altered Mental Status, Headache, Dizziness Physical Exam - Physical Exam Appears: Well, Non-toxic, No Acute Distress Skin: Normal Color, Warm Head: Normacephalic Eye(s): bilateral: PERRL Nose: No Flaring, No Discharge Oral Mucosa: Moist Throat: No Erythema Neck: Trachea Midline, Supple Cardiovascular: Rhythm Regular, No Murmur, No JVD Respiratory: No Decreased Breath Sounds, No Accessory Muscle Use, No Stridor, No Wheezing Gastrointestinal/Abdominal: Soft, Tenderness (mod epigastric), No Distention, No Guarding, No Rebound Back: No CVA Tenderness Extremity: Normal ROM, Other (Right upper arm AV fistula, (+) thrill) Neurological/Psych: Oriented x3, Normal Speech ED Course And Treatment - Laboratory Results Result Diagrams: 09/19/17 04:18 09/19/17 04:18 Lab Interpretation: Abnormal O2 Sat by Pulse Oximetry: 98 Pulse Ox Interpretation: Normal Progress Note: Blood work review, abnormla and c/w acute apncreactitis. case discussed with and admission arranged. Disposition - Disposition Disposition: HOSPITALIZED Disposition Time: 05:12 Condition: STABLE Forms: [facility] ([place] Citizen) - Clinical Impression Clinical Impression: Pancreatitis
--- NOTE | 2017-09-19 10:52 | CP.PCM.HP ---
History of Present Illness - History of Present Illness History of Present Illness: pt came in for ac abd pain nausea and vomitingfor 1 day Present on Admission - Present on Admission Any Indicators Present on Admission: No Review of Systems - Review of Systems Systems not reviewed;Unavailable: Acuity of Condition - Constitutional Constitutional: Fatigue - EENT Eyes: As Per HPI Ears: As Per HPI Nose/Mouth/Throat: As Per HPI - Breasts Breasts: As Per HPI - Cardiovascular Cardiovascular: Dyspnea - Respiratory Respiratory: Dyspnea on Exertion - Gastrointestinal Gastrointestinal: Abdominal Pain, Bloating, Nausea, Vomiting - Genitourinary Genitourinary: As Per HPI - Reproductive: Female Reproductive:Female: As Per HPI - Menstruation Menstruation: As Per HPI - Musculoskeletal Musculoskeletal: As Per HPI - Integumentary Integumentary: As Per HPI - Neurological Neurological: As Per HPI - Psychiatric Psychiatric: As Per HPI - Endocrine Endocrine: Fatigue - Hematologic/Lymphatic Additional comments: aneamia esrf on dialysis Past Patient History - Infectious Disease Hx of Infectious Diseases: None - Past Medical History & Family History Past Medical History?: Yes - Past Social History Smoking Status: Never Smoked - CARDIAC Hx Congestive Heart Failure: Yes Hx Hypertension: Yes - RENAL Hx Dialysis: Yes Type of Dialysis Access: av shunt right Date of Last Dialysis Treatment: 09/18/17 - ENDOCRINE/METABOLIC Hx Diabetes Mellitus Type 2: Yes - MUSCULOSKELETAL/RHEUMATOLOGICAL Hx Falls: No - GASTROINTESTINAL Hx Pancreatitis: Yes - PSYCHIATRIC Hx Substance Use: No - SURGICAL HISTORY Hx Surgeries: No - ANESTHESIA Hx Anesthesia: No Meds Allergies/Adverse Reactions: Allergies Allergy/AdvReac Type Severity Reaction Status Date / Time No Known Allergies Allergy Verified 09/19/17 03:36 Physical Exam - Constitutional Appears: In Acute Distress - Head Exam Head Exam: ATRAUMATIC - Eye Exam Eye Exam: Normal appearance Pupil Exam: NORMAL ACCOMODATION - ENT Exam ENT Exam: Mucous Membranes Moist, Normal Exam - Neck Exam Neck exam: Positive for: Full Rom - Respiratory Exam Respiratory Exam: Decreased Breath Sounds - Cardiovascular Exam Cardiovascular Exam: REGULAR RHYTHM, +S1, +S2, +S4 - GI/Abdominal Exam GI & Abdominal Exam: Tenderness - Exam Exam: NORMAL INSPECTION - Extremities Exam Extremities exam: Positive for: normal inspection Results - Vital Signs Recent Vital Signs: Last Vital Signs Temp 98.3 F 09/19/17 10:10 Pulse 73 08/11/18 10:10 Resp 20 09/19/17 10:10 BP 157/101 H 09/19/17 10:10 Pulse Ox 98 09/19/17 10:10 - Labs Result Diagrams: 09/19/17 04:18 09/19/17 04:18 Labs: Laboratory Results - last 24 hr 09/19/17 09/19/17 04:18 04:18 WBC 6.7 RBC 3.92 Hgb 10.3 L Hct 31.0 L MCV 79.2 L MCH 26.3 L MCHC 33.2 RDW 17.3 H Plt Count 218 MPV 8.4 Neut % (Auto) 68.5 Lymph % (Auto) 22.1 [place]erry % (Auto) 6.3 Eos % (Auto) 1.9 Baso % (Auto) 1.2 Neut # (Auto) 4.6 Lymph # (Auto) 1.5 [place] # (Auto) 0.4 Eos # (Auto) 0.1 Baso # (Auto) 0.1 Sodium 143 Potassium 4.4 Chloride 95 L Carbon Dioxide 34 H Anion Gap 19 BUN 26 H Creatinine 4.4 H Est GFR ( Amer) 13 Est GFR (Non-Af Amer) 11 Random Glucose 93 Calcium 9.4 Total Bilirubin 0.5 AST 25 ALT 15 Alkaline Phosphatase 316 H Total Protein 7.5 Albumin 4.3 Globulin 3.3 Albumin/Globulin Ratio 1.3 Amylase 172 H Lipase 356 H Assessment & Plan - Assessment and Plan (Free Text) Assessment: ac abd pain vomiting ac pancreatitis ESRF ANEAMIA HTN CHF PREDIABETIC Plan: PER ORDERS - Date & Time Date: 09/19/17 Time: 10:56
[2017-09-19] MEDS: Dextrose 5%/0.45% NS 1,000 ML IV SCH ×2 (20:32→21:50)
[2017-09-20 08:52] LABS: AMYLASE 111 U/L (30-110); LIPASE 42 U/L (23-300)
[2017-09-20] MEDS: Dextrose 5%/0.45% NS 1,000 ML IV SCH ×3 (09:30→21:34)
--- NOTE | 2017-09-20 10:33 | CP.PCM.PN ---
Subjective - Date & Time of Evaluation Date of Evaluation: 09/20/17 Time of Evaluation: 10:31 - Subjective Subjective: feels beter less pain lipase is better but still hi Objective - Vital Signs/Intake and Output Vital Signs (last 24 hours): Temp Pulse Resp BP Pulse Ox 98.2 F 70 20 172/73 H 95 09/20/17 07:27 09/20/17 07:27 09/20/17 07:27 09/20/17 07:27 09/20/17 07:27 Intake and Output: 09/20/17 09/20/17 06:59 18:59 Intake Total 640 600 Balance 640 600 - Medications Medications: Current Medications Amlodipine Besylate (Norvasc) 10 mg PO DAILY [facility] Last Admin: 09/19/17 11:51 Dose: 10 mg Diphenhydramine HCl (Benadryl) 25 mg PO Q6 PRN PRN Reason: Itching / Pruritus Last Admin: 09/19/17 21:47 Dose: 25 mg Dextrose/Sodium Chloride (Dextrose 5%/0.45% Ns 1000 Ml) 1,000 mls @ 80 mls/hr IV .[id number] [facility] Last Admin: 09/19/17 21:50 Dose: 80 mls/hr Morphine Sulfate (Morphine) 2 mg IVP Q6 PRN PRN Reason: Pain, moderate (4-7) Last Admin: 09/20/17 06:45 Dose: 2 mg - Labs Labs: 09/19/17 04:18 09/19/17 04:18 - Constitutional Appears: Non-toxic - Head Exam Head Exam: NORMAL INSPECTION - Eye Exam Eye Exam: Normal appearance Pupil Exam: NORMAL ACCOMODATION - ENT Exam ENT Exam: Mucous Membranes Moist - Neck Exam Neck Exam: Normal Inspection - Respiratory Exam Respiratory Exam: Clear to Ausculation Bilateral - Cardiovascular Exam Cardiovascular Exam: REGULAR RHYTHM - GI/Abdominal Exam GI & Abdominal Exam: Soft, Tenderness - Extremities Exam Extremities Exam: Normal Capillary Refill - Neurological Exam Neurological Exam: Alert, Awake, Oriented x3 - Psychiatric Exam Psychiatric exam: Normal Affect - Skin Skin Exam: Normal Color Assessment and Plan - Assessment and Plan (Free Text) Assessment: ac pancreatitis improving esrf Plan: repeate lab stay npo
--- NOTE | 2017-09-20 20:34 | CP.PCM.CON ---
History of Present Illness - History of Present Illness History of Present Illness: renal consult note hpi: 47 yr old with esrd, htn, sec hyperpth, abdominal pain, is admitted for pancreatitis. hd days are mwf with no missed hd sessions complete ros is negative pmh as above social hx no alcohol, non smoker. no drugs meds reviewed family hx reviewed vitals reviewed heent normal op moist no jvd ao times 3 s1s2 present no resp distress abd soft, tender upper abdomen, non distended skin normal no edema cooperative ' ESRD/pancreatitis/anemia/htn/dm sec hyperpth hd mwf, continue per schedule lytes reviewd bp resume home meds continue binders anemia epo as needed with hd Past Patient History - Infectious Disease Hx of Infectious Diseases: None - Past Medical History & Family History Past Medical History?: Yes - Past Social History Smoking Status: Never Smoked - CARDIAC Hx Congestive Heart Failure: Yes Hx Hypertension: Yes - RENAL Hx Dialysis: Yes Type of Dialysis Access: av shunt right Date of Last Dialysis Treatment: 09/18/17 - ENDOCRINE/METABOLIC Hx Diabetes Mellitus Type 2: Yes - MUSCULOSKELETAL/RHEUMATOLOGICAL Hx Falls: No - GASTROINTESTINAL Hx Pancreatitis: Yes - PSYCHIATRIC Hx Substance Use: No - SURGICAL HISTORY Hx Surgeries: No - ANESTHESIA Hx Anesthesia: No Meds Allergies/Adverse Reactions: Allergies Allergy/AdvReac Type Severity Reaction Status Date / Time No Known Allergies Allergy Verified 09/19/17 03:36 - Medications Medications: Current Medications Amlodipine Besylate (Norvasc) 10 mg PO DAILY [facility] Last Admin: 09/20/17 10:43 Dose: 10 mg Diphenhydramine HCl (Benadryl) 25 mg PO Q6 PRN PRN Reason: Itching / Pruritus Last Admin: 09/19/17 21:47 Dose: 25 mg Dextrose/Sodium Chloride (Dextrose 5%/0.45% Ns 1000 Ml) 1,000 mls @ 80 mls/hr IV .[id number] Last Admin: 09/20/17 10:57 Dose: 80 mls/hr Morphine Sulfate (Morphine) 2 mg IVP Q6 PRN PRN Reason: Pain, moderate (4-7) Last Admin: 09/20/17 18:38 Dose: 2 mg Results - Vital Signs Recent Vital Signs: Last Vital Signs Temp 98 F 09/20/17 16:00 Pulse 68 09/20/17 16:00 Resp 20 09/20/17 16:00 BP 152/79 H 09/20/17 16:00 Pulse Ox 97 09/20/17 16:00 - Labs Result Diagrams: 09/19/17 04:18 09/19/17 04:18 Labs: Laboratory Results - last 24 hr 09/20/17 09/20/17 08:24 08:24 Hemoglobin A1c 4.9 Amylase 111 H D Lipase 42
[2017-09-21] MEDS: Dextrose 5%/0.45% NS 1,000 ML IV SCH (12:10)
[2017-09-21 13:42] LABS: BASO % 0.6 % (0.0-2.0); EOS # 0.2 K/uL (0.0-0.7); EOS % 2.9 % (0.0-4.0); HEMOGLOBIN 10.1 g/dL (11.0-16.0); LYMPH # 0.9 K/uL (1.0-4.3); MEAN CELL VOLUME 79.2 fL (81.0-99.0); MEAN CORPUSCULAR HEMOGLOBIN 26.4 pg (27.0-31.0); MEAN CORPUSCULAR HGB CONC 33.3 g/dL (33.0-37.0); MEAN PLATELET VOLUME 8.6 fL (7.2-11.7); MONO # 0.5 K/uL (0.0-0.8); MONO % 6.3 % (0.0-10.0); NEUT # 5.5 K/uL (1.8-7.0); NEUT % 77.2 % (50.0-75.0); RBC 3.84 Mil/uL (3.80-5.20); RED CELL DISTRIBUTION WIDTH 16.5 % (11.5-14.5); WHITE BLOOD COUNT 7.1 K/uL (4.8-10.8)
[2017-09-21 14:16] LABS: ALB/GLOB RATIO 1.4 (1.0-2.1); ALBUMIN 4.2 g/dL (3.5-5.0); CALCIUM 9.2 mg/dl (8.6-10.4)
--- NOTE | 2017-09-21 15:16 | CP.PCM.PN ---
Subjective - Date & Time of Evaluation Date of Evaluation: 09/21/17 Time of Evaluation: 15:14 - Subjective Subjective: Nephrology Consultation Note: Assessment: Stable Acute on chronic pancreatitis Hypertensive Chronic Kidney Disease (I12.0) End stage renal disease (N18.6) dependence on hemodialysis (Z99.2) (MWF) via AVF Anemia (D64.9), Hyperphosphatemia (E83.39), Secondary Hyperparathyroidism (E21.1 ), HTN (I12.0) Plan: Will plan for HD today as ordered. Continue with Nephrovite 1 tab/day. PRBC as needed for anemia. not on DARINEL with dialysis as last Hb 10.1 and elevated BP Continue with phos binders BP control with meds as ordered. Patient added on RAAS jhony as losartan 100 mg/day. norvasc as 10 mg/day; continue Glycemic control, Dialysis consistent diet Further work up/management as per primary team Dose meds/antibiotics (if needed) for ESRD status. Avoid fleets enema/magnesium based laxatives. pt started on liquid diet will d/c IVF Thanks for allowing me to participate in care of your patient. Will follow patient with you. Please call if any Qs Dr Ananda Escalona Office: [phone] Chief Complaint; pain abdomen HPI: Pt is a 47 F with hx of ESRD on hemodialysis (MWF) via AVF , last dialysis wed, chronic anemia, hyperphosphatemia, secondary hyperparathyroidism, hypertension and chronic pancreatitis presented with complaints of pain abdomen Renal consult requested for ESRD management. ROS: Cardiovascular: No chest pain. Pulmonary: No shortness of breath Gastrointestinal: improved abdominal pain No nausea. No vomiting. Genitourinary: No pain while urinating. Denies blood in urine. All other negative except as mentioned in HPI Physical Examination: seen on HD General Appearance: Comfortable, in no acute respiratory distress co-operative . Vitals reviewed and noted as below Head; Atraumatic, normocephalic ENT: no ulcers no thrush. Tongue is midline. Oropharynx: no rash or ulcers. EYES: Pupils are equal, round and reactive to light accommodation. Eye muscles and extraocular movement intact. Sclera is anicteric. Neck; supple no lymphadenopathy, no thyromegaly or bruit Lungs: Normal respiratory rate/effort. Breath sounds bilateral equal and clear Heart: Normal rate. s1s2 normal. No rub or gallop. Extremities: no edema. No varicose veins Neurological: Patient is alert, awake and oriented to person, place and time. No focal deficit. Strength bilateral appropriate and equal Skin: Warm and dry. Normal turgor. No rash. Palpitation: Normal elasticity for age Abdomen: Abdomen is soft. Bowel sounds +. There is mild abdominal tenderness, no guarding/rigidity or organomegaly Psych: normal insight and flat affect/mood MSK: no joint tenderness or swelling. Digits and nails normal, no deformity : kidney or bladder not palpable Access: AVF Labs/imaging reviewed. Past medical history, past surgical history, family history, social history, allergy reviewed and noted as below Family Hx: no hx of CKD. Non contributory Objective - Vital Signs/Intake and Output Vital Signs (last 24 hours): Temp Pulse Resp BP Pulse Ox 97.4 F L 82 18 174/96 H 97 09/21/17 13:26 09/21/17 13:26 09/21/17 13:26 09/21/17 13:50 09/21/17 13:00 Intake and Output: 09/21/17 09/21/17 06:59 18:59 Intake Total 640 Balance 640 - Medications Medications: Current Medications Amlodipine Besylate (Norvasc) 10 mg PO DAILY [facility] Last Admin: 09/21/17 10:00 Dose: 10 mg Diphenhydramine HCl (Benadryl) 25 mg PO Q6 PRN PRN Reason: Itching / Pruritus Last Admin: 09/20/17 22:10 Dose: 25 mg Heparin Sodium (Porcine) (Heparin) 5,000 units SC Q12 [facility] Last Admin: 09/21/17 10:08 Dose: Not Given Dextrose/Sodium Chloride (Dextrose 5%/0.45% Ns 1000 Ml) 1,000 mls @ 80 mls/hr IV .[id number] [facility] Last Admin: 09/21/17 12:10 Dose: Not Given Morphine Sulfate (Morphine) 2 mg IVP Q6 PRN PRN Reason: Pain, moderate (4-7) Last Admin: 09/21/17 13:53 Dose: 2 mg - Labs Labs: 09/21/17 13:37 09/21/17 13:37
--- NOTE | 2017-09-21 17:13 | CP.PCM.PN ---
Subjective - Date & Time of Evaluation Date of Evaluation: 09/21/17 Time of Evaluation: 17:11 - Subjective Subjective: feels beter tolerating liquid has dialysis today Objective - Vital Signs/Intake and Output Vital Signs (last 24 hours): Temp Pulse Resp BP Pulse Ox 97.4 F L 82 18 174/96 H 97 09/21/17 13:26 09/21/17 13:26 09/21/17 13:26 09/21/17 13:50 09/21/17 13:00 Intake and Output: 09/21/17 09/21/17 06:59 18:59 Intake Total 640 Balance 640 - Medications Medications: Current Medications Amlodipine Besylate (Norvasc) 10 mg PO DAILY [facility] Last Admin: 09/21/17 10:00 Dose: 10 mg Diphenhydramine HCl (Benadryl) 25 mg PO Q6 PRN PRN Reason: Itching / Pruritus Last Admin: 09/20/17 22:10 Dose: 25 mg Heparin Sodium (Porcine) (Heparin) 5,000 units SC Q12 [facility] Last Admin: 09/21/17 10:08 Dose: Not Given Losartan Potassium (Cozaar) 100 mg PO QPM [facility] Morphine Sulfate (Morphine) 2 mg IVP Q6 PRN PRN Reason: Pain, moderate (4-7) Last Admin: 09/21/17 13:53 Dose: 2 mg - Labs Labs: 09/21/17 13:37 09/21/17 13:37 - Constitutional Appears: Non-toxic - Head Exam Head Exam: NORMAL INSPECTION - Eye Exam Eye Exam: Normal appearance Pupil Exam: NORMAL ACCOMODATION - ENT Exam ENT Exam: Mucous Membranes Moist - Neck Exam Neck Exam: Normal Inspection - Respiratory Exam Respiratory Exam: NORMAL BREATHING PATTERN - Cardiovascular Exam Cardiovascular Exam: REGULAR RHYTHM - GI/Abdominal Exam GI & Abdominal Exam: Normal Bowel Sounds - Rectal Exam Rectal Exam: NORMAL INSPECTION - Extremities Exam Extremities Exam: Normal Capillary Refill - Back Exam Back Exam: NORMAL INSPECTION - Neurological Exam Neurological Exam: Alert, Oriented x3 - Psychiatric Exam Psychiatric exam: Normal Mood Assessment and Plan - Assessment and Plan (Free Text) Assessment: ac pancreatitis improved esrf Plan: advance diet
[2017-09-21 18:22] VITALS: RESP 20
[2017-09-22 08:25] VITALS: TEMP 98; O2SAT 100
[2017-09-22 10:31] VITALS: BP 148/78; PULSE 71
--- NOTE | 2017-09-22 10:51 | CP.PCM.PN ---
Subjective - Date & Time of Evaluation Date of Evaluation: 09/22/17 Time of Evaluation: 10:48 - Subjective Subjective: pt feels comfortable tolerating diet had dialysis yesterday will d/c home today Objective - Vital Signs/Intake and Output Vital Signs (last 24 hours): Temp Pulse Resp BP Pulse Ox 98.0 F 71 20 148/78 100 09/22/17 07:00 09/22/17 10:30 09/22/17 07:00 09/22/17 10:30 09/22/17 07:00 Intake and Output: 09/22/17 09/22/17 06:59 18:59 Intake Total 200 Balance 200 - Medications Medications: Current Medications Amlodipine Besylate (Norvasc) 10 mg PO DAILY [facility] Last Admin: 09/22/17 10:29 Dose: 10 mg Diphenhydramine HCl (Benadryl) 25 mg PO Q6 PRN PRN Reason: Itching / Pruritus Last Admin: 09/21/17 18:49 Dose: 25 mg Heparin Sodium (Porcine) (Heparin) 5,000 units SC Q12 [facility] Last Admin: 09/22/17 10:31 Dose: Not Given Losartan Potassium (Cozaar) 100 mg PO QPM [facility] Last Admin: 09/21/17 18:50 Dose: 100 mg Morphine Sulfate (Morphine) 2 mg IVP Q6 PRN PRN Reason: Pain, moderate (4-7) Last Admin: 09/22/17 03:30 Dose: 2 mg - Labs Labs: 09/21/17 13:37 09/21/17 13:37 - Constitutional Appears: Non-toxic - Head Exam Head Exam: ATRAUMATIC, NORMAL INSPECTION - Eye Exam Eye Exam: Normal appearance Pupil Exam: NORMAL ACCOMODATION - ENT Exam ENT Exam: Normal Exam - Neck Exam Neck Exam: Full ROM - Respiratory Exam Respiratory Exam: NORMAL BREATHING PATTERN - Cardiovascular Exam Cardiovascular Exam: REGULAR RHYTHM - GI/Abdominal Exam GI & Abdominal Exam: Normal Bowel Sounds - Rectal Exam Rectal Exam: Deferred, NORMAL INSPECTION - Exam Exam: NORMAL INSPECTION - Extremities Exam Extremities Exam: Normal Inspection - Back Exam Back Exam: NORMAL INSPECTION - Psychiatric Exam Psychiatric exam: Normal Affect - Skin Skin Exam: Normal Color Assessment and Plan - Assessment and Plan (Free Text) Assessment: ac pancreatitis improved esrf cont dialysis ouout pt cont all med f/u in office
--- NOTE | 2017-09-22 10:52 | CP.PCM.PN ---
Subjective - Date & Time of Evaluation Date of Evaluation: 09/22/17 Time of Evaluation: 10:52 - Subjective Subjective: PATIENT IS ADMITTED FOR ACUTE PANCREATITIS AND ESRD AAO X3 / DENIES CHEST PAIN OR SOB NO SIGN OF DISTRESS NOTED Objective - Vital Signs/Intake and Output Vital Signs (last 24 hours): Temp Pulse Resp BP Pulse Ox 98.0 F 71 20 148/78 100 09/22/17 07:00 09/22/17 10:30 09/22/17 07:00 09/22/17 10:30 09/22/17 07:00 Intake and Output: 09/22/17 09/22/17 06:59 18:59 Intake Total 200 Balance 200 - Medications Medications: Current Medications Amlodipine Besylate (Norvasc) 10 mg PO DAILY [facility] Last Admin: 09/22/17 10:29 Dose: 10 mg Diphenhydramine HCl (Benadryl) 25 mg PO Q6 PRN PRN Reason: Itching / Pruritus Last Admin: 09/21/17 18:49 Dose: 25 mg Heparin Sodium (Porcine) (Heparin) 5,000 units SC Q12 [facility] Last Admin: 09/22/17 10:31 Dose: Not Given Losartan Potassium (Cozaar) 100 mg PO QPM [facility] Last Admin: 09/21/17 18:50 Dose: 100 mg Morphine Sulfate (Morphine) 2 mg IVP Q6 PRN PRN Reason: Pain, moderate (4-7) Last Admin: 09/22/17 03:30 Dose: 2 mg - Labs Labs: 09/21/17 13:37 09/21/17 13:37 Assessment and Plan - Assessment and Plan (Free Text) Assessment: PATIENT SEEN AND EXAMINED AT THE BEDSIDE LUNG SOUND CLEAR CAREY / B/P CONTROL ON MED DISCUSS WITH DR MOORE AND DR EPPS WHO CLEAR FOR DC FOLLOW UP WITH DR EPPS IN HER OFFICE 1-2 WEEK ---CALL FOR APPOINTMENT FOLLOW UP WITH YOUR MATERIALS SCHEDULER OUT PATIENT HEMODIALYSIS SCHEDULE HOME MEDICATION ORDER NEW PRESCRIPTION GIVEN LOSARTAN 100 MG BY MOUTH IN THE AFTERNOON STOP TAKING VALSARTAN PER DR MOORE ACTIVITY TOLERATED CALL DR EPPS OR GO TO THE EMERGENCY ROOM IF SYMPTOMS RETURN OR WORSENING DISCUSS WITH PATIENT WHO AGREE AND VERBALIZED UNDERSTANDING
--- NOTE | 2017-09-22 10:58 | CP.PCM.PN ---
Subjective - Date & Time of Evaluation Date of Evaluation: 09/22/17 Time of Evaluation: 10:57 - Subjective Subjective: Nephrology Consultation Note: Assessment: Stable Acute on chronic pancreatitis Hypertensive Chronic Kidney Disease (I12.0) End stage renal disease (N18.6) dependence on hemodialysis (Z99.2) (MWF) via AVF Anemia (D64.9), Hyperphosphatemia (E83.39), Secondary Hyperparathyroidism (E21.1 ), HTN (I12.0) Plan: Will plan for HD tomorrow as ordered. Continue with Nephrovite 1 tab/day. PRBC as needed for anemia. not on DARINEL with dialysis as last Hb 10.1 and elevated BP Continue with phos binders BP control with meds as ordered. Patient added on RAAS jhony as losartan 100 mg/day. norvasc as 10 mg/day; continue Glycemic control, Dialysis consistent diet Further work up/management as per primary team Dose meds/antibiotics (if needed) for ESRD status. Avoid fleets enema/magnesium based laxatives. pt stable for d/c from renal perspective when planned. Thanks for allowing me to participate in care of your patient. Will follow patient with you. Please call if any Qs. had d/w team Dr Ananda Escalona Office: [phone] Chief Complaint; pain abdomen better HPI: Pt is a 47 F with hx of ESRD on hemodialysis (MWF) via AVF , last dialysis wed, chronic anemia, hyperphosphatemia, secondary hyperparathyroidism, hypertension and chronic pancreatitis presented with complaints of pain abdomen Renal consult requested for ESRD management. ROS: Cardiovascular: No chest pain. Pulmonary: No shortness of breath Gastrointestinal: improved abdominal pain No nausea. No vomiting. Genitourinary: No pain while urinating. Denies blood in urine. All other negative except as mentioned in HPI Physical Examination: seen on HD General Appearance: Comfortable, in no acute respiratory distress co-operative . Vitals reviewed and noted as below Head; Atraumatic, normocephalic ENT: no ulcers no thrush. Tongue is midline. Oropharynx: no rash or ulcers. EYES: Pupils are equal, round and reactive to light accommodation. Eye muscles and extraocular movement intact. Sclera is anicteric. Neck; supple no lymphadenopathy, no thyromegaly or bruit Lungs: Normal respiratory rate/effort. Breath sounds bilateral equal and clear Heart: Normal rate. s1s2 normal. No rub or gallop. Extremities: no edema. No varicose veins Neurological: Patient is alert, awake and oriented to person, place and time. No focal deficit. Strength bilateral appropriate and equal Skin: Warm and dry. Normal turgor. No rash. Palpitation: Normal elasticity for age Abdomen: Abdomen is soft. Bowel sounds +. There is no abdominal tenderness, no guarding/rigidity or organomegaly Psych: normal insight and flat affect/mood MSK: no joint tenderness or swelling. Digits and nails normal, no deformity : kidney or bladder not palpable Access: AVF Labs/imaging reviewed. Past medical history, past surgical history, family history, social history, allergy reviewed and noted as below Family Hx: no hx of CKD. Non contributory Objective - Vital Signs/Intake and Output Vital Signs (last 24 hours): Temp Pulse Resp BP Pulse Ox 98.0 F 71 20 148/78 100 09/22/17 07:00 09/22/17 10:30 09/22/17 07:00 09/22/17 10:30 09/22/17 07:00 Intake and Output: 09/22/17 09/22/17 06:59 18:59 Intake Total 200 Balance 200 - Medications Medications: Current Medications Amlodipine Besylate (Norvasc) 10 mg PO DAILY [facility] Last Admin: 09/22/17 10:29 Dose: 10 mg Diphenhydramine HCl (Benadryl) 25 mg PO Q6 PRN PRN Reason: Itching / Pruritus Last Admin: 09/21/17 18:49 Dose: 25 mg Heparin Sodium (Porcine) (Heparin) 5,000 units SC Q12 [facility] Last Admin: 09/22/17 10:31 Dose: Not Given Losartan Potassium (Cozaar) 100 mg PO QPM [facility] Last Admin: 09/21/17 18:50 Dose: 100 mg Morphine Sulfate (Morphine) 2 mg IVP Q6 PRN PRN Reason: Pain, moderate (4-7) Last Admin: 09/22/17 03:30 Dose: 2 mg - Labs Labs: 09/21/17 13:37 09/21/17 13:37
== END 2017-09-22 15:21 | disposition home or self-care (01) | DRG 204 ==
LOC: C.ER 03:18 → C.9E 05:11 → C.5S 08:56
PROVIDERS: ADMIT Internal Medicine; ATTEND Internal Medicine
PROC: 5A1D70Z Performance of Urinary Filtration, Intermittent, Less than 6 Hours Per Day (ICD-10-PCS; principal; 2017-09-21)
DX: K85.90 Acute pancreatitis without necrosis or infection, unspecified (principal); N18.6 End stage renal disease; I50.9 Heart failure, unspecified; I13.2 Hypertensive heart and chronic kidney disease with heart failure and with stage 5 chronic kidney disease, or end stage renal disease; E11.22 Type 2 diabetes mellitus with diabetic chronic kidney disease; K86.1 Other chronic pancreatitis; N25.81 Secondary hyperparathyroidism of renal origin; D64.9 Anemia, unspecified; E83.39 Other disorders of phosphorus metabolism; Z99.2 Dependence on renal dialysis; Z86.73 Personal history of transient ischemic attack (TIA), and cerebral infarction without residual deficits

== ENCOUNTER 2017-10-10 12:19 | Inpatient (IN) | payer MEDICAID ==
--- NOTE | 2017-10-10 12:53 | C.PDOC ---
History Of Present Illness 47 y/o female, with PMHx of ESRD on hemodialysis Mon, Wed, Fri, presents to ED c /o abdominal pain, vomiting, and diarrhea. Notes pain is improving now. Pt last received dialysis yesterday. Denies fever, or other complaints. Time Seen by Provider: 10/10/17 12:34 Chief Complaint (Nursing): Dizziness/Lightheaded History Per: Patient History/Exam Limitations: no limitations Past Medical History Reviewed: Historical Data, Nursing Documentation, Vital Signs Vital Signs: Last Vital Signs Temp 98.0 F 10/11/17 08:00 Pulse 71 10/11/17 08:00 Resp 20 10/11/17 08:00 BP 127/77 10/11/17 08:00 Pulse Ox 95 10/11/17 08:00 - Medical History PMH: CHF, HTN, Pancreatitis, End Stage Renal Disease - [facility] (09/19/17) Family History: States: Unknown Family Hx - Social History Hx Alcohol Use: No Hx Substance Use: No - Immunization History Hx Tetanus Toxoid Vaccination: No Hx Influenza Vaccination: No Hx Pneumococcal Vaccination: No Review Of Systems Except As Marked, All Systems Reviewed And Found Negative. Constitutional: Negative for: Fever, Chills Gastrointestinal: Positive for: Nausea, Vomiting, Abdominal Pain, Diarrhea Genitourinary: Negative for: Dysuria, Frequency, Hematuria Physical Exam - Physical Exam Appears: Non-toxic, No Acute Distress Skin: Normal Color, Warm, Dry Head: Atraumatic, Normacephalic Eye(s): bilateral: Normal Inspection Oral Mucosa: Moist Cardiovascular: Rhythm Regular Respiratory: Normal Breath Sounds, No Rales, No Rhonchi, No Wheezing Gastrointestinal/Abdominal: Soft, Tenderness (minimal epigastric), No Guarding, No Rebound Back: No CVA Tenderness Extremity: Normal ROM Neurological/Psych: Oriented x3, Normal Speech ED Course And Treatment - Laboratory Results Result Diagrams: 10/10/17 13:39 10/10/17 13:39 ECG: Interpreted By Me, Viewed By Me ECG Rhythm: Sinus Rhythm Interpretation Of ECG: Non-specific ST/T wave changes. No interval change from previous. Rate From EC O2 Sat by Pulse Oximetry: 97 Pulse Ox Interpretation: Normal Medical Decision Making Medical Decision Making: ro gastriits pancreatits coltiis labs imagingpending Plan: EKG Blood work Protonix Elio noted elevated lipase. h/ o of pancreatitis. pt reports neg recent us at other instituion. bedside us does not shwo gallbladder patology. case discussed with dr muir. accepts for admission. further diagnostic imagign deferred to inpt. Disposition - Disposition Disposition: HOSPITALIZED Disposition Time: 15:33 Condition: STABLE - Clinical Impression Clinical Impression: Pancreatitis - Scribe Statement The provider has reviewed the documentation as recorded by the Scribe KP All medical record entries made by the Scribe were at my direction and personally dictated by me. I have reviewed the chart and agree that the record accurately reflects my personal performance of the history, physical exam, medical decision making, and the department course for this patient. I have also personally directed, reviewed, and agree with the discharge instructions and disposition. Decision To Admit - Pt Status Changed To: Hospital Disposition Of: Inpatient - Admit Certification Admit to Inpatient:: After my assessment, the patient will require hospitalization for at least two midnights. This is because of the severity of symptoms shown, intensity of services needed, and/or the medical risk in this patient being treated as an outpatient. - InPatient: Physician Admission Certification: I certify that this patient requires 2 or more midnights of care for the following reason:: elevated lipase - . Bed Request Type: Regular Admitting Physician: Phylicia Vega Patient Diagnosis: Pancreatitis
[2017-10-10 13:48] LABS: BASO # 0.1 K/uL (0.0-0.2); BASO % 0.9 % (0.0-2.0); EOS # 0.1 K/uL (0.0-0.7); EOS % 1.6 % (0.0-4.0); HEMOGLOBIN 11.2 g/dL (11.0-16.0); LYMPH % 14.2 % (20.0-40.0); MEAN CELL VOLUME 79.8 fL (81.0-99.0); MEAN CORPUSCULAR HEMOGLOBIN 26.5 pg (27.0-31.0); MEAN CORPUSCULAR HGB CONC 33.3 g/dL (33.0-37.0); MEAN PLATELET VOLUME 8.4 fL (7.2-11.7); MONO # 0.4 K/uL (0.0-0.8); MONO % 5.6 % (0.0-10.0); NEUT # 5.6 K/uL (1.8-7.0); NEUT % 77.7 % (50.0-75.0); RBC 4.23 Mil/uL (3.80-5.20); RED CELL DISTRIBUTION WIDTH 17.6 % (11.5-14.5); WHITE BLOOD COUNT 7.2 K/uL (4.8-10.8)
[2017-10-10 13:57] LABS: INR 1.1; PROTHROMBIN TIME 11.7 SECONDS (9.7-12.2)
[2017-10-10 14:16] LABS: TROPONIN I 0.051 ng/mL (0.00-0.120)
[2017-10-10 14:36] LABS: ALB/GLOB RATIO 1.4 (1.0-2.1); ALBUMIN 4.5 g/dL (3.5-5.0); CALCIUM 10.1 mg/dl (8.6-10.4)
[2017-10-10] MEDS: Sodium Chloride 0.9% 1,000 ML IV SCH (15:06)
[2017-10-10] MEDS ORDERED: Sodium Chloride 0.9% 1,000 ML ONE (15:06)
[2017-10-11] MEDS: Sodium Chloride 0.9% 1,000 ML IV SCH (04:24)
--- NOTE | 2017-10-11 09:23 | CP.PCM.HP ---
History of Present Illness - History of Present Illness History of Present Illness: pt came for abd pain vomiting and recurent pancreatitis Present on Admission - Present on Admission Any Indicators Present on Admission: No Review of Systems - Review of Systems Systems not reviewed;Unavailable: Acuity of Condition - Constitutional Constitutional: Fatigue - EENT Eyes: As Per HPI Ears: As Per HPI Nose/Mouth/Throat: As Per HPI - Breasts Breasts: As Per HPI - Cardiovascular Cardiovascular: As Per HPI - Respiratory Respiratory: As Per HPI - Gastrointestinal Gastrointestinal: Bloating, Diarrhea, Nausea, Vomiting - Genitourinary Genitourinary: As Per HPI Additional comments: esrf on dialysis - Reproductive: Female Reproductive:Female: As Per HPI - Menstruation Menstruation: As Per HPI - Musculoskeletal Musculoskeletal: As Per HPI - Integumentary Integumentary: As Per HPI - Neurological Neurological: As Per HPI - Psychiatric Psychiatric: As Per HPI - Endocrine Endocrine: As Per HPI - Hematologic/Lymphatic Hematologic: As Per HPI Past Patient History - Infectious Disease Hx of Infectious Diseases: None - Past Medical History & Family History Past Medical History?: Yes - Past Social History Smoking Status: Never Smoked - CARDIAC Hx Cardiac Disorders: Yes Hx Congestive Heart Failure: Yes Hx Hypertension: Yes - PULMONARY Hx Respiratory Disorders: No - NEUROLOGICAL Hx Neurological Disorder: No - HEENT Hx HEENT Problems: No - RENAL Hx Chronic Kidney Disease: Yes Hx Dialysis: Yes Date of Last Dialysis Treatment: 10/09/17 - ENDOCRINE/METABOLIC Hx Endocrine Disorders: Yes Hx Diabetes Mellitus Type 2: Yes - HEMATOLOGICAL/ONCOLOGICAL Hx Blood Disorders: No - INTEGUMENTARY Hx Dermatological Problems: No - MUSCULOSKELETAL/RHEUMATOLOGICAL Hx Musculoskeletal Disorders: No Hx Falls: No - GASTROINTESTINAL Hx Gastrointestinal Disorders: Yes Hx Pancreatitis: Yes - GENITOURINARY/GYNECOLOGICAL Hx Genitourinary Disorders: No - PSYCHIATRIC Hx Psychophysiologic Disorder: No Hx Substance Use: No - SURGICAL HISTORY Hx Surgeries: Yes Hx Vascular Access Device: Yes (RIGHT AV SHUNT 3 YEARS AGO) - ANESTHESIA Hx Anesthesia: Yes Hx Anesthesia Reactions: No Hx Malignant Hyperthermia: No Has any member of the family had a problem w/ anesthesia?: No Meds Allergies/Adverse Reactions: Allergies Allergy/AdvReac Type Severity Reaction Status Date / Time No Known Allergies Allergy Verified 10/10/17 12:23 Physical Exam - Constitutional Appears: In Acute Distress - Head Exam Head Exam: ATRAUMATIC - Eye Exam Eye Exam: Normal appearance Pupil Exam: NORMAL ACCOMODATION - ENT Exam ENT Exam: Normal Exam - Neck Exam Neck exam: Positive for: Full Rom - Respiratory Exam Respiratory Exam: Clear to Auscultation Bilateral - Cardiovascular Exam Cardiovascular Exam: REGULAR RHYTHM - GI/Abdominal Exam GI & Abdominal Exam: Normal Bowel Sounds, Tenderness - Rectal Exam Rectal Exam: NORMAL INSPECTION - Exam External exam: NORMAL EXTERNAL EXAM - Extremities Exam Extremities exam: Positive for: normal inspection - Back Exam Back exam: NORMAL INSPECTION - Psychiatric Exam Psychiatric exam: Normal Mood - Skin Skin Exam: Intact Results - Vital Signs Recent Vital Signs: Last Vital Signs Temp 98.0 F 10/11/17 08:00 Pulse 71 10/11/17 08:00 Resp 20 10/11/17 08:00 BP 127/77 10/11/17 08:00 Pulse Ox 95 10/11/17 08:00 - Labs Result Diagrams: 10/10/17 13:39 10/10/17 13:39 Labs: Laboratory Results - last 24 hr 10/10/17 10/10/17 10/10/17 13:39 13:39 13:39 WBC 7.2 RBC 4.23 Hgb 11.2 Hct 33.8 L MCV 79.8 L MCH 26.5 L MCHC 33.3 RDW 17.6 H Plt Count 228 MPV 8.4 Neut % (Auto) 77.7 H Lymph % (Auto) 14.2 L [place] % (Auto) 5.6 Eos % (Auto) 1.6 Baso % (Auto) 0.9 Neut # (Auto) 5.6 Lymph # (Auto) 1.0 [place] # (Auto) 0.4 Eos # (Auto) 0.1 Baso # (Auto) 0.1 PT 11.7 INR 1.1 APTT 34 Sodium 142 Potassium 4.1 Chloride 94 L Carbon Dioxide 31 H Anion Gap 22 H BUN 27 H Creatinine 5.6 H Est GFR ( Amer) 10 Est GFR (Non-Af Amer) 8 Random Glucose 117 H Calcium 10.1 Total Bilirubin 0.5 AST 18 ALT 9 Alkaline Phosphatase 384 H Troponin I 0.0510 Total Protein 7.8 Albumin 4.5 Globulin 3.3 Albumin/Globulin Ratio 1.4 Lipase 460 H 10/11/17 08:07 WBC RBC Hgb Hct MCV MCH MCHC RDW Plt Count MPV Neut % (Auto) Lymph % (Auto) [place] % (Auto) Eos % (Auto) Baso % (Auto) Neut # (Auto) Lymph # (Auto) [place] # (Auto) Eos # (Auto) Baso # (Auto) PT INR APTT Sodium Potassium Chloride Carbon Dioxide Anion Gap BUN Creatinine Est GFR ( Amer) Est GFR (Non-Af Amer) Random Glucose Calcium Total Bilirubin AST ALT Alkaline Phosphatase Troponin I Total Protein Albumin Globulin Albumin/Globulin Ratio Lipase 95 Assessment & Plan - Assessment and Plan (Free Text) Assessment: kristie britton pancreatitis improving ESRF Plan: START DIET - Date & Time Date: 10/11/17 Time: 09:24
--- NOTE | 2017-10-11 09:50 | CP.PCM.CON ---
History of Present Illness - History of Present Illness History of Present Illness: renal consult note 47 yr old with esrd on hd mwf, htn sechyperpth, recurrent pancreatits is admitted with worsening abdominal pain, nausea and vomiting. no missed hd sessions complete ros is negative meds reviewed pmh as above non smoker no alcohol vitals reviewed heent normal op moist no jvd s1s2 present no resp distress abd soft, tender in upper quad, bs + ao times 3 no fnd no rash cooperative A&P: esrd/htn/pancreatitis/sec hyperpth hd mwf continue per schedule lytes reviewed anemia stable hb >10 no epogen check a phos levels, i have ordered it pancreatitis per primary team Past Patient History - Infectious Disease Hx of Infectious Diseases: None - Past Medical History & Family History Past Medical History?: Yes - Past Social History Smoking Status: Never Smoked - CARDIAC Hx Cardiac Disorders: Yes Hx Congestive Heart Failure: Yes Hx Hypertension: Yes - PULMONARY Hx Respiratory Disorders: No - NEUROLOGICAL Hx Neurological Disorder: No - HEENT Hx HEENT Problems: No - RENAL Hx Chronic Kidney Disease: Yes Hx Dialysis: Yes Date of Last Dialysis Treatment: 10/09/17 - ENDOCRINE/METABOLIC Hx Endocrine Disorders: Yes Hx Diabetes Mellitus Type 2: Yes - HEMATOLOGICAL/ONCOLOGICAL Hx Blood Disorders: No - INTEGUMENTARY Hx Dermatological Problems: No - MUSCULOSKELETAL/RHEUMATOLOGICAL Hx Musculoskeletal Disorders: No Hx Falls: No - GASTROINTESTINAL Hx Gastrointestinal Disorders: Yes Hx Pancreatitis: Yes - GENITOURINARY/GYNECOLOGICAL Hx Genitourinary Disorders: No - PSYCHIATRIC Hx Psychophysiologic Disorder: No Hx Substance Use: No - SURGICAL HISTORY Hx Surgeries: Yes Hx Vascular Access Device: Yes (RIGHT AV SHUNT 3 YEARS AGO) - ANESTHESIA Hx Anesthesia: Yes Hx Anesthesia Reactions: No Hx Malignant Hyperthermia: No Has any member of the family had a problem w/ anesthesia?: No Meds Allergies/Adverse Reactions: Allergies Allergy/AdvReac Type Severity Reaction Status Date / Time No Known Allergies Allergy Verified 10/10/17 12:23 - Medications Medications: Current Medications Acetaminophen (Tylenol 325mg Tab) 650 mg PO Q6 PRN PRN Reason: Pain, Mild (1-3) Sodium Chloride (Sodium Chloride 0.9%) 1,000 mls @ 80 mls/hr IV .[id number] [facility] Last Admin: 10/11/17 04:24 Dose: 80 mls/hr Morphine Sulfate (Morphine) 1 mg IV Q4 PRN PRN Reason: Pain, moderate (4-7) Last Admin: 10/11/17 08:48 Dose: 1 mg Results - Vital Signs Recent Vital Signs: Last Vital Signs Temp 98.0 F 10/11/17 08:00 Pulse 71 10/11/17 08:00 Resp 20 10/11/17 08:00 BP 127/77 10/11/17 08:00 Pulse Ox 95 10/11/17 08:00 - Labs Result Diagrams: 10/10/17 13:39 10/10/17 13:39 Labs: Laboratory Results - last 24 hr 10/10/17 10/10/17 10/10/17 13:39 13:39 13:39 WBC 7.2 RBC 4.23 Hgb 11.2 Hct 33.8 L MCV 79.8 L MCH 26.5 L MCHC 33.3 RDW 17.6 H Plt Count 228 MPV 8.4 Neut % (Auto) 77.7 H Lymph % (Auto) 14.2 L Cole % (Auto) 5.6 Eos % (Auto) 1.6 Baso % (Auto) 0.9 Neut # (Auto) 5.6 Lymph # (Auto) 1.0 Cole # (Auto) 0.4 Eos # (Auto) 0.1 Baso # (Auto) 0.1 PT 11.7 INR 1.1 APTT 34 Sodium 142 Potassium 4.1 Chloride 94 L Carbon Dioxide 31 H Anion Gap 22 H BUN 27 H Creatinine 5.6 H Est GFR ( Amer) 10 Est GFR (Non-Af Amer) 8 Random Glucose 117 H Calcium 10.1 Total Bilirubin 0.5 AST 18 ALT 9 Alkaline Phosphatase 384 H Troponin I 0.0510 Total Protein 7.8 Albumin 4.5 Globulin 3.3 Albumin/Globulin Ratio 1.4 Lipase 460 H 10/11/17 08:07 WBC RBC Hgb Hct MCV MCH MCHC RDW Plt Count MPV Neut % (Auto) Lymph % (Auto) Cole % (Auto) Eos % (Auto) Baso % (Auto) Neut # (Auto) Lymph # (Auto) Cole # (Auto) Eos # (Auto) Baso # (Auto) PT INR APTT Sodium Potassium Chloride Carbon Dioxide Anion Gap BUN Creatinine Est GFR ( Amer) Est GFR (Non-Af Amer) Random Glucose Calcium Total Bilirubin AST ALT Alkaline Phosphatase Troponin I Total Protein Albumin Globulin Albumin/Globulin Ratio Lipase 95
[2017-10-11] MEDS: (Novolog) Insulin Aspart, Recombinant 100 u/ml 10 ml vial SC SCH ×2 (16:26→21:48)
[2017-10-12] MEDS: (Novolog) Insulin Aspart, Recombinant 100 u/ml 10 ml vial SC SCH ×4 (08:02→22:40)
--- NOTE | 2017-10-12 10:59 | CP.PCM.PN ---
Subjective - Date & Time of Evaluation Date of Evaluation: 10/12/17 Time of Evaluation: 10:56 - Subjective Subjective: pt having dialysis now still on liquid diet tolerating ocasionaly pain Objective - Vital Signs/Intake and Output Vital Signs (last 24 hours): Temp Pulse Resp BP Pulse Ox 97.8 F 70 20 158/90 H 95 10/12/17 09:10 10/12/17 09:10 10/12/17 09:10 10/12/17 10:10 10/12/17 09:10 - Medications Medications: Current Medications Acetaminophen (Tylenol 325mg Tab) 650 mg PO Q6 PRN PRN Reason: Pain, Mild (1-3) Insulin Aspart (Novolog) 0 unit SC ACHS [facility] PRN Reason: Protocol Last Admin: 10/12/17 08:02 Dose: Not Given Morphine Sulfate (Morphine) 1 mg IV Q4 PRN PRN Reason: Pain, moderate (4-7) Last Admin: 10/12/17 06:17 Dose: 1 mg Ondansetron HCl (Zofran Tab) 4 mg PO AC [facility] Last Admin: 10/12/17 08:20 Dose: Not Given - Labs Labs: 10/10/17 13:39 10/10/17 13:39 PT 11.7 SECONDS (9.7-12.2) 10/10/17 13:39 INR 1.1 10/10/17 13:39 APTT 34 SECONDS (21-34) 10/10/17 13:39 - Constitutional Appears: Non-toxic - Head Exam Head Exam: NORMAL INSPECTION - Eye Exam Eye Exam: Normal appearance Pupil Exam: NORMAL ACCOMODATION - ENT Exam ENT Exam: Mucous Membranes Moist - Respiratory Exam Respiratory Exam: NORMAL BREATHING PATTERN - Cardiovascular Exam Cardiovascular Exam: REGULAR RHYTHM - GI/Abdominal Exam GI & Abdominal Exam: Tenderness - Rectal Exam Rectal Exam: NORMAL INSPECTION - Exam External exam: NORMAL EXTERNAL EXAM - Extremities Exam Extremities Exam: Normal Inspection - Back Exam Back Exam: NORMAL INSPECTION - Neurological Exam Neurological Exam: Alert, Awake - Psychiatric Exam Psychiatric exam: Normal Mood - Skin Skin Exam: Pallor Assessment and Plan - Assessment and Plan (Free Text) Assessment: recurent ac pancreatits improving dm ESRF ON DIALYSIS ANEAMIA HYPOCALCEAMIA Plan: INCREASE DIET REPEAT LAB
--- NOTE | 2017-10-12 15:57 | CP.PCM.PN ---
Subjective - Date & Time of Evaluation Date of Evaluation: 10/12/17 Time of Evaluation: 15:57 - Subjective Subjective: renal follow up note seen on hd vitals reviewed heent normal op moist no jvd s1s2 present no resp distress abd soft, ND bs + ao times 3 no fnd no rash cooperative A&P: esrd/htn/pancreatitis/sec hyperpth hd mwf continue per schedule lytes reviewed anemia stable hb >10 no epogen monitor phos levels pancreatitis per primary team Objective - Vital Signs/Intake and Output Vital Signs (last 24 hours): Temp Pulse Resp BP Pulse Ox 97.2 F L 73 18 161/103 H 100 10/12/17 12:10 10/12/17 12:10 10/12/17 12:10 10/12/17 14:12 10/12/17 12:10 Intake and Output: 10/12/17 10/12/17 06:59 18:59 Intake Total 500 Balance 500 - Medications Medications: Current Medications Acetaminophen (Tylenol 325mg Tab) 650 mg PO Q6 PRN PRN Reason: Pain, Mild (1-3) Carvedilol (Coreg) 12.5 mg PO BID [facility] Last Admin: 10/12/17 14:12 Dose: 12.5 mg Enoxaparin Sodium (Lovenox) 40 mg SC DAILY [facility] Insulin Aspart (Novolog) 0 unit SC ACHS [facility] PRN Reason: Protocol Last Admin: 10/12/17 11:50 Dose: Not Given Isosorbide Mononitrate (Imdur) 60 mg PO DAILY [facility] Last Admin: 10/12/17 14:12 Dose: 60 mg Losartan Potassium (Cozaar) 100 mg PO DAILY [facility] Last Admin: 10/12/17 14:12 Dose: 100 mg Morphine Sulfate (Morphine) 1 mg IV Q4 PRN PRN Reason: Pain, moderate (4-7) Last Admin: 10/12/17 06:17 Dose: 1 mg Ondansetron HCl (Zofran Tab) 4 mg PO AC [facility] Last Admin: 10/12/17 13:19 Dose: 4 mg - Labs Labs: 10/10/17 13:39 10/10/17 13:39 PT 11.7 SECONDS (9.7-12.2) 10/10/17 13:39 INR 1.1 10/10/17 13:39 APTT 34 SECONDS (21-34) 10/10/17 13:39
[2017-10-12 16:22] VITALS: RESP 20
[2017-10-13] MEDS: (Novolog) Insulin Aspart, Recombinant 100 u/ml 10 ml vial SC SCH ×2 (07:49→11:48)
[2017-10-13 08:11] VITALS: TEMP 98; O2SAT 96
--- NOTE | 2017-10-13 09:57 | CP.PCM.PN ---
Subjective - Date & Time of Evaluation Date of Evaluation: 10/13/17 Time of Evaluation: 09:54 - Subjective Subjective: tolerating diet well Objective - Vital Signs/Intake and Output Vital Signs (last 24 hours): Temp Pulse Resp BP Pulse Ox 98 F 83 20 183/109 H 96 10/13/17 08:10 10/13/17 08:10 10/13/17 08:10 10/13/17 08:18 10/13/17 08:10 Intake and Output: 10/13/17 10/13/17 06:59 18:59 Intake Total 120 Balance 120 - Medications Medications: Current Medications Acetaminophen (Tylenol 325mg Tab) 650 mg PO Q6 PRN PRN Reason: Pain, Mild (1-3) Amlodipine Besylate (Norvasc) 10 mg PO QPM [facility] Carvedilol (Coreg) 12.5 mg PO BID [facility] Last Admin: 10/13/17 09:28 Dose: Not Given Clonidine HCl (Catapres) 0.1 mg PO BID [facility] Diphenhydramine HCl (Benadryl) 25 mg PO Q6 PRN PRN Reason: Itching / Pruritus Last Admin: 10/12/17 19:07 Dose: 25 mg Heparin Sodium (Porcine) (Heparin) 5,000 units SC Q12H [facility] Insulin Aspart (Novolog) 0 unit SC ACHS [facility] PRN Reason: Protocol Last Admin: 10/13/17 07:49 Dose: Not Given Isosorbide Mononitrate (Imdur) 60 mg PO DAILY [facility] Last Admin: 10/13/17 09:29 Dose: Not Given Losartan Potassium (Cozaar) 100 mg PO DAILY [facility] Last Admin: 10/13/17 09:29 Dose: Not Given Morphine Sulfate (Morphine) 1 mg IV Q4 PRN PRN Reason: Pain, moderate (4-7) Last Admin: 10/12/17 06:17 Dose: 1 mg Ondansetron HCl (Zofran Tab) 4 mg PO AC [facility] Last Admin: 10/13/17 08:04 Dose: 4 mg - Labs Labs: 10/10/17 13:39 10/10/17 13:39 PT 11.7 SECONDS (9.7-12.2) 10/10/17 13:39 INR 1.1 10/10/17 13:39 APTT 34 SECONDS (21-34) 10/10/17 13:39 - Constitutional Appears: Non-toxic - Head Exam Head Exam: NORMAL INSPECTION - Eye Exam Eye Exam: Normal appearance Pupil Exam: NORMAL ACCOMODATION - ENT Exam ENT Exam: Mucous Membranes Moist - Neck Exam Neck Exam: Normal Inspection - Respiratory Exam Respiratory Exam: NORMAL BREATHING PATTERN - Cardiovascular Exam Cardiovascular Exam: REGULAR RHYTHM - GI/Abdominal Exam GI & Abdominal Exam: Normal Bowel Sounds - Exam External exam: NORMAL EXTERNAL EXAM - Extremities Exam Extremities Exam: Normal Capillary Refill - Back Exam Back Exam: NORMAL INSPECTION - Neurological Exam Neurological Exam: Alert, Oriented x3 - Psychiatric Exam Psychiatric exam: Normal Mood - Skin Skin Exam: Normal Color Assessment and Plan - Assessment and Plan (Free Text) Assessment: s/p ac pancreatitis improved ESRF HTN Plan: WILL DISCHARGE AND CONT ALL MED F/U WITH MY OFFICE AND DIALYSIS
[2017-10-13] MEDS ORDERED: Enoxaparin 40 mg Syringe SC SCH ×2 (10:00)
[2017-10-13 10:04] VITALS: BP 168/92; PULSE 93
--- NOTE | 2017-10-13 15:29 | CP.PCM.PN ---
Subjective - Date & Time of Evaluation Date of Evaluation: 10/13/17 Time of Evaluation: 15:28 - Subjective Subjective: Nephrology Consultation Note: Assessment: Stable Acute on chronic pancreatitis Hypertensive Chronic Kidney Disease (I12.0) End stage renal disease (N18.6) dependence on hemodialysis (Z99.2) (MWF) via AVF Anemia (D64.9), Hyperphosphatemia (E83.39), Secondary Hyperparathyroidism (E21.1 ), HTN (I12.0) Plan: Will plan for HD tomorrow as ordered. Continue with Nephrovite 1 tab/day. PRBC as needed for anemia. not on DARINEL with dialysis as last Hb 11.2 Continue with phos binders BP control with meds as ordered. Patient on RAAS jhony as losartan 100 mg/ day. norvasc as 10 mg/day; continue Glycemic control, Dialysis consistent diet Further work up/management as per primary team Dose meds/antibiotics (if needed) for ESRD status. Avoid fleets enema/magnesium based laxatives. pt stable for d/c from renal perspective when planned. Thanks for allowing me to participate in care of your patient. Will follow patient with you. Please call if any Qs. had d/w team Dr Ananda Escalona Office: [phone] Chief Complaint; pain abdomen better HPI: Pt is a 47 F with hx of ESRD on hemodialysis (MWF) via AVF , last dialysis wed, chronic anemia, hyperphosphatemia, secondary hyperparathyroidism, hypertension and chronic pancreatitis presented with complaints of pain abdomen Renal consult requested for ESRD management. ROS: Cardiovascular: No chest pain. Pulmonary: No shortness of breath Gastrointestinal: improved abdominal pain No nausea. No vomiting. Genitourinary: No pain while urinating. Denies blood in urine. All other negative except as mentioned in HPI Physical Examination: General Appearance: Comfortable, in no acute respiratory distress co-operative . Vitals reviewed and noted as below Head; Atraumatic, normocephalic ENT: no ulcers no thrush. Tongue is midline. Oropharynx: no rash or ulcers. EYES: Pupils are equal, round and reactive to light accommodation. Eye muscles and extraocular movement intact. Sclera is anicteric. Neck; supple no lymphadenopathy, no thyromegaly or bruit Lungs: Normal respiratory rate/effort. Breath sounds bilateral equal and clear Heart: Normal rate. s1s2 normal. No rub or gallop. Extremities: no edema. No varicose veins Neurological: Patient is alert, awake and oriented to person, place and time. No focal deficit. Strength bilateral appropriate and equal Skin: Warm and dry. Normal turgor. No rash. Palpitation: Normal elasticity for age Abdomen: Abdomen is soft. Bowel sounds +. There is no abdominal tenderness, no guarding/rigidity or organomegaly Psych: normal insight and flat affect/mood MSK: no joint tenderness or swelling. Digits and nails normal, no deformity : kidney or bladder not palpable Access: AVF Labs/imaging reviewed. Past medical history, past surgical history, family history, social history, allergy reviewed and noted as below Family Hx: no hx of CKD. Non contributory Objective - Vital Signs/Intake and Output Vital Signs (last 24 hours): Temp Pulse Resp BP Pulse Ox 98 F 93 H 20 168/92 H 96 10/13/17 08:10 10/13/17 10:03 10/13/17 08:10 10/13/17 10:03 10/13/17 08:10 Intake and Output: 10/13/17 10/13/17 06:59 18:59 Intake Total 600 Balance 600 - Medications Medications: Current Medications Acetaminophen (Tylenol 325mg Tab) 650 mg PO Q6 PRN PRN Reason: Pain, Mild (1-3) Amlodipine Besylate (Norvasc) 10 mg PO DAILY [facility] Last Admin: 10/13/17 11:00 Dose: 10 mg Carvedilol (Coreg) 12.5 mg PO BID [facility] Last Admin: 10/13/17 09:28 Dose: Not Given Clonidine HCl (Catapres-Tts3 0.3 Mg/24 Hr) 1 patch TD Q7D@1000 [facility] Last Admin: 10/13/17 11:10 Dose: 1 patch Diphenhydramine HCl (Benadryl) 25 mg PO Q6 PRN PRN Reason: Itching / Pruritus Last Admin: 10/12/17 19:07 Dose: 25 mg Heparin Sodium (Porcine) (Heparin) 5,000 units SC Q12H [facility] Last Admin: 10/13/17 11:00 Dose: Not Given Insulin Aspart (Novolog) 0 unit SC ACHS [facility] PRN Reason: Protocol Last Admin: 10/13/17 11:48 Dose: Not Given Isosorbide Mononitrate (Imdur) 60 mg PO DAILY [facility] Last Admin: 10/13/17 09:29 Dose: Not Given Losartan Potassium (Cozaar) 100 mg PO DAILY [facility] Last Admin: 10/13/17 09:29 Dose: Not Given Morphine Sulfate (Morphine) 1 mg IV Q4 PRN PRN Reason: Pain, moderate (4-7) Last Admin: 10/12/17 06:17 Dose: 1 mg Ondansetron HCl (Zofran Tab) 4 mg PO AC [facility] Last Admin: 10/13/17 12:34 Dose: Not Given Vitamin B Complex/Vit C/Folic Acid (Nephro-Divya) 1 tab PO 0800 [facility] - Labs Labs: 10/10/17 13:39 10/10/17 13:39 PT 11.7 SECONDS (9.7-12.2) 10/10/17 13:39 INR 1.1 10/10/17 13:39 APTT 34 SECONDS (21-34) 10/10/17 13:39
[2017-10-14] MEDS ORDERED: Multivitamin Vitamin B Complex (Nephro-Vite) Tab PO SCH (08:00)
== END 2017-10-13 16:27 | disposition home or self-care (01) | DRG 204 ==
LOC: C.ER 12:19 → C.9E 14:42 → C.3T 16:20
PROVIDERS: ADMIT Internal Medicine; ATTEND Internal Medicine
PROC: 5A1D70Z Performance of Urinary Filtration, Intermittent, Less than 6 Hours Per Day (ICD-10-PCS; principal; 2017-10-10)
DX: K85.90 Acute pancreatitis without necrosis or infection, unspecified (principal); N18.6 End stage renal disease; I13.2 Hypertensive heart and chronic kidney disease with heart failure and with stage 5 chronic kidney disease, or end stage renal disease; E11.22 Type 2 diabetes mellitus with diabetic chronic kidney disease; I50.9 Heart failure, unspecified; K86.1 Other chronic pancreatitis; N25.81 Secondary hyperparathyroidism of renal origin; D64.9 Anemia, unspecified; E83.39 Other disorders of phosphorus metabolism; Z99.2 Dependence on renal dialysis

== ENCOUNTER 2017-11-27 19:19 | Inpatient (IN) | payer MEDICAID ==
--- NOTE | 2017-11-27 20:06 | C.PDOC ---
History Of Present Illness 47 year old female presents to the ED c/o abdominal pain associated with nausea that started yesterday. Patient states she had couple episodes of vomiting today as well. Patient is a Thursday, Thursday, Thursday dialysis, patient reports she went to dialysis today. Patient denies fever, chills, diarrhea, dysuria, hematuria, rash, back pain. Time Seen by Provider: 11/27/17 20:06 Chief Complaint (Nursing): Abdominal Pain History Per: Patient History/Exam Limitations: no limitations Onset/Duration Of Symptoms: Days Current Symptoms Are (Timing): Still Present Severity: Mild Pain Scale Rating Of: 4 Location Of Pain/Discomfort: Epigastric Radiation Of Pain To:: None Quality Of Discomfort: "Pain" Associated Symptoms: Nausea, Vomiting. denies: Diarrhea, Loss Of Appetite, Urinary Symptoms Last Bowel Movement: Today Recent travel outside of the [place]: No Additional History Per: Patient Abnormal Vaginal Bleeding: No Past Medical History Reviewed: Historical Data, Nursing Documentation, Vital Signs Vital Signs: Last Vital Signs Temp 98.6 F 11/27/17 19:30 Pulse 92 H 11/27/17 19:30 Resp 18 11/27/17 19:30 BP 188/108 H 11/27/17 19:30 Pulse Ox 97 11/27/17 19:30 - Medical History PMH: CHF, HTN, Pancreatitis, End Stage Renal Disease, Chronic Kidney Disease Denies: Crohn's Disease, Diverticulitis, Gastritis, Gall Bladder Disease Surgical History: No Surg Hx - [facility] (10/10/17) Family History: States: Unknown Family Hx - Social History Hx Alcohol Use: No Hx Substance Use: No - Immunization History Hx Tetanus Toxoid Vaccination: No Hx Influenza Vaccination: Yes Hx Pneumococcal Vaccination: No Review Of Systems Constitutional: Negative for: Fever, Chills Eyes: Negative for: Vision Change Cardiovascular: Negative for: Chest Pain, Palpitations Respiratory: Negative for: Shortness of Breath Gastrointestinal: Positive for: Nausea, Vomiting, Abdominal Pain. Negative for: Diarrhea Genitourinary: Negative for: Dysuria, Hematuria Skin: Negative for: Rash Neurological: Negative for: Weakness, Numbness Psych: Negative for: Anxiety Physical Exam - Physical Exam Appears: Non-toxic, No Acute Distress Skin: Warm, Dry Head: Normacephalic Eye(s): bilateral: Normal Inspection Neck: Supple Chest: Symmetrical Cardiovascular: Rhythm Regular Respiratory: No Rales, No Rhonchi, No Wheezing Gastrointestinal/Abdominal: Soft, Tenderness (mild mid epigastric), No Guarding, No Rebound Back: Normal Inspection Extremity: Normal ROM Extremity: Right: Other (shunt right arm good thrill and bruit), Bilateral: Atraumatic, Normal Color And Temperature, Normal ROM Pulses: Left Dorsalis Pedis: Normal, Right Dorsalis Pedis: Normal Neurological/Psych: Oriented x3, Normal Speech, Normal Cognition Gait: Steady ED Course And Treatment - Laboratory Results Result Diagrams: 11/27/17 20:07 11/27/17 20:27 ECG: Interpreted By Me, Viewed By Me ECG Rhythm: Sinus Rhythm (86), Nonspecific Changes O2 Sat by Pulse Oximetry: 97 (ON RA) Pulse Ox Interpretation: Normal Progress Note: Plan: - EKG. - Labs. - Protonix 40 mg IVP. - Zofran 4 mg IVP Disposition Discussed With : Horacio Loera Comment: accepted the pt on his service and took over the care at 10:37 PM Doctor Will See Patient In The: Hospital Counseled Patient/Family Regarding: Studies Performed, Diagnosis - Disposition Disposition: HOSPITALIZED Disposition Time: 20:06 Condition: FAIR Forms: [employer] ([place]) - POA Present On Arrival: None - Clinical Impression Clinical Impression: ESRD (end stage renal disease) on dialysis, Abdominal pain, Pancreatitis - Scribe Statement The provider has reviewed the documentation as recorded by the Scribe Vinicio Vasquez All medical record entries made by the Scribe were at my direction and personally dictated by me. I have reviewed the chart and agree that the record accurately reflects my personal performance of the history, physical exam, medical decision making, and the department course for this patient. I have also personally directed, reviewed, and agree with the discharge instructions and disposition. Decision To Admit - Pt Status Changed To: Hospital Disposition Of: Inpatient - Admit Certification Admit to Inpatient:: After my assessment, the patient will require hospitalization for at least two midnights. This is because of the severity of symptoms shown, intensity of services needed, and/or the medical risk in this patient being treated as an outpatient. - InPatient: Physician Admission Certification:: After my assessment, the patient will require hospitalization for at least two midnights. This is because of the severity of symptoms shown, intensity of services needed, and/or the medical risk in this patient being treated as an outpatient. - . Bed Request Type: Regular Admitting Physician: Horacio Loera Patient Diagnosis: ESRD (end stage renal disease) on dialysis, Abdominal pain, Pancreatitis
[2017-11-27 20:22] LABS: BASO # 0.1 K/uL (0.0-0.2); EOS # 0.1 K/uL (0.0-0.7); EOS % 1.3 % (0.0-4.0); HEMOGLOBIN 11.4 g/dL (11.0-16.0); LYMPH # 1.4 K/uL (1.0-4.3); LYMPH % 15.7 % (20.0-40.0); MEAN CELL VOLUME 76.9 fL (81.0-99.0); MEAN CORPUSCULAR HEMOGLOBIN 25.3 pg (27.0-31.0); MEAN CORPUSCULAR HGB CONC 32.9 g/dL (33.0-37.0); MEAN PLATELET VOLUME 8.6 fL (7.2-11.7); MONO # 0.5 K/uL (0.0-0.8); MONO % 5.4 % (0.0-10.0); NEUT # 6.9 K/uL (1.8-7.0); NEUT % 76.6 % (50.0-75.0); NRBC % 0.1 % (0.0-2.0); RBC 4.5 Mil/uL (3.80-5.20); RED CELL DISTRIBUTION WIDTH 17.4 % (11.5-14.5); WHITE BLOOD COUNT 8.9 K/uL (4.8-10.8)
[2017-11-27 20:46] LABS: INR 1.1; PROTHROMBIN TIME 11.5 SECONDS (9.7-12.2)
[2017-11-27 20:47] LABS: ALB/GLOB RATIO 1.4 (1.0-2.1); CALCIUM 9.4 mg/dl (8.6-10.4)
--- NOTE | 2017-11-28 08:05 | RAD ---
Abdomen four views HISTORY: Abdominal pain. COMPARISON: None available. FINDINGS: Diffuse increased interstitial lung markings within the lung wood bilaterally. Upper lobe granulomatous changes. Patchy increased markings at the left lung base. Aortic atherosclerotic calcification present. Degenerative changes in the spine. Right axillary stent in place. Moderate fecal retention in the colon. No evidence of gross bowel obstruction. Impression: Moderate fecal retention in the colon. No evidence of gross bowel obstruction. Diffuse increased interstitial lung markings within the lung wood bilaterally. Upper lobe granulomatous changes. Patchy increased markings at the left lung base. Aortic atherosclerotic calcification present. Degenerative changes in the spine. Right axillary stent in place.
--- NOTE | 2017-11-28 11:00 | CP.PCM.CON ---
History of Present Illness - History of Present Illness History of Present Illness: Nephrology Consultation Note: Assessment: Stable chronic pancreatitis Hypertensive Chronic Kidney Disease (I12.0) End stage renal disease (N18.6) dependence on hemodialysis (Z99.2) (MWF) via AVF Anemia (D64.9), Hyperphosphatemia (E83.39), Secondary Hyperparathyroidism (E21.1), HTN (I12.0) Plan: Will plan for HD Thursday as ordered. Continue with Nephrovite 1 tab/day. PRBC as needed for anemia. not on DARINEL with dialysis as last Hb 111.4 Continue with phos binders, check phos level BP control with meds as ordered. Patient on RAAS jhony as losartan 100 mg/day Glycemic control, Dialysis consistent diet Further work up/management as per primary team Dose meds/antibiotics (if needed) for ESRD status. Avoid fleets enema/magnesium based laxatives. Thanks for allowing me to participate in care of your patient. Will follow patient with you. Please call if any Qs. had d/w team Dr Ananda Escalona Office: [phone] Chief Complaint; pain abdomen HPI: Pt is a 47 F with hx of ESRD on hemodialysis (MWF) via AVF , last dialysis fri, chronic anemia, hyperphosphatemia, secondary hyperparathyroidism, hypertension and chronic pancreatitis presented with complaints of pain abdomen Renal consult requested for ESRD management. pt with recurrent and multiple admissions for same says pain abdomen same ROS: Cardiovascular: No chest pain. Pulmonary: No shortness of breath Gastrointestinal: c/o abdominal pain No nausea. No vomiting. Genitourinary: No pain while urinating. Denies blood in urine. All other negative except as mentioned in HPI Physical Examination: General Appearance: Comfortable, in no acute respiratory distress, co-operative . Vitals reviewed and noted as below Head; Atraumatic, normocephalic ENT: no ulcers no thrush. Tongue is midline. Oropharynx: no rash or ulcers. EYES: Pupils are equal, round and reactive to light accommodation. Eye muscles and extraocular movement intact. Sclera is anicteric. Neck; supple no lymphadenopathy, no thyromegaly or bruit Lungs: Normal respiratory rate/effort. Breath sounds bilateral equal and clear Heart: Normal rate. s1s2 normal. No rub or gallop. Extremities: no edema. No varicose veins Neurological: Patient is alert, awake and oriented to person, place and time. No focal deficit. Strength bilateral appropriate and equal Skin: Warm and dry. Normal turgor. No rash. Palpitation: Normal elasticity for age Abdomen: Abdomen is soft. Bowel sounds +. There is no abdominal tenderness, no guarding/rigidity or organomegaly Psych: normal insight and flat affect/mood MSK: no joint tenderness or swelling. Digits and nails normal, no deformity : kidney or bladder not palpable Access: AVF Labs/imaging reviewed. Past medical history, past surgical history, family history, social history, allergy reviewed and noted as below Family Hx: no hx of CKD. Non contributory Past Patient History - Infectious Disease Hx of Infectious Diseases: None - Past Medical History & Family History Past Medical History?: Yes - Past Social History Smoking Status: Never Smoked - CARDIAC Hx Congestive Heart Failure: Yes Hx Hypertension: Yes - PULMONARY Hx Respiratory Disorders: No - NEUROLOGICAL Hx Neurological Disorder: No - HEENT Hx HEENT Problems: No - RENAL Hx Chronic Kidney Disease: Yes Date of Last Dialysis Treatment: 11/27/17 - ENDOCRINE/METABOLIC Hx Endocrine Disorders: Yes Hx Diabetes Mellitus Type 2: Yes - HEMATOLOGICAL/ONCOLOGICAL Hx Blood Disorders: No Hx Cirrhosis: No Hx Hepatitis A: No Hx Hepatitis B: No Hx Hepatitis C: No - INTEGUMENTARY Hx Dermatological Problems: No - MUSCULOSKELETAL/RHEUMATOLOGICAL Hx Musculoskeletal Disorders: No Hx Falls: No - GASTROINTESTINAL Hx Crohn's Disease: No Hx Diverticulitis: No Hx Gall Bladder Disease: No Hx Gastritis: No Hx Pancreatitis: Yes - GENITOURINARY/GYNECOLOGICAL Hx Genitourinary Disorders: No - PSYCHIATRIC Hx Substance Use: No - SURGICAL HISTORY Hx Surgeries: Yes Hx Section: Yes (X2) Hx Vascular Access Device: Yes (RIGHT AV SHUNT 5 YEARS AGO) - ANESTHESIA Hx Anesthesia: Yes Hx Anesthesia Reactions: No Hx Malignant Hyperthermia: No Meds Allergies/Adverse Reactions: Allergies Allergy/AdvReac Type Severity Reaction Status Date / Time No Known Allergies Allergy Verified 11/27/17 19:34 - Medications Medications: Current Medications Acetaminophen (Tylenol 325mg Tab) 650 mg PO Q6 PRN PRN Reason: Pain, moderate (4-7) Last Admin: 11/28/17 09:44 Dose: 650 mg Amlodipine Besylate (Norvasc) 10 mg PO DAILY [facility] Last Admin: 11/28/17 10:29 Dose: 10 mg Heparin Sodium (Porcine) (Heparin) 5,000 units SC Q12 [facility] Last Admin: 11/28/17 10:30 Dose: Not Given Heparin Sodium (Porcine) (Heparin) 2,000 units IVP [facility] Losartan Potassium (Cozaar) 100 mg PO DAILY [facility] Last Admin: 11/28/17 10:29 Dose: 100 mg Pneumococcal Polyvalent Vaccine (Pneumovax 23 Vaccine) 0.5 ml IM .ONCE ONE Stop: 11/30/17 10:01 Vitamin B Complex/Vit C/Folic Acid (Nephro-Divya) 1 tab PO 0800 [facility] Results - Vital Signs Recent Vital Signs: Last Vital Signs Temp 98.5 F 11/28/17 08:00 Pulse 75 11/28/17 08:00 Resp 20 11/28/17 08:00 BP 178/90 H 11/28/17 08:00 Pulse Ox 96 11/28/17 08:00 - Labs Result Diagrams: 11/27/17 20:07 11/27/17 20:27 Labs: Laboratory Results - last 24 hr 11/27/17 11/27/17 11/27/17 20:07 20:27 20:31 WBC 8.9 RBC 4.50 Hgb 11.4 Hct 34.6 MCV 76.9 L MCH 25.3 L MCHC 32.9 L RDW 17.4 H Plt Count 262 MPV 8.6 Neut % (Auto) 76.6 H Lymph % (Auto) 15.7 L [place] % (Auto) 5.4 Eos % (Auto) 1.3 Baso % (Auto) 1.0 Neut # (Auto) 6.9 Lymph # (Auto) 1.4 [place] # (Auto) 0.5 Eos # (Auto) 0.1 Baso # (Auto) 0.1 PT 11.5 INR 1.1 APTT 33 Sodium 145 Potassium 4.4 Chloride 98 Carbon Dioxide 32 H Anion Gap 20 BUN 28 H Creatinine 4.3 H Est GFR ( Amer) 13 Est GFR (Non-Af Amer) 11 Random Glucose 87 Calcium 9.4 Total Bilirubin 0.6 AST 23 ALT 10 Alkaline Phosphatase 440 H D Total Protein 8.6 H Albumin 5.0 D Globulin 3.6 Albumin/Globulin Ratio 1.4 Lipase 478 H
[2017-11-29] MEDS: Multivitamin Vitamin B Complex (Nephro-Vite) Tab PO SCH (08:23)
--- NOTE | 2017-11-29 11:00 | CP.PCM.PN ---
Subjective - Date & Time of Evaluation Date of Evaluation: 11/29/17 Time of Evaluation: 10:59 - Subjective Subjective: Nephrology Consultation Note: Assessment: Stable chronic pancreatitis Hypertensive Chronic Kidney Disease (I12.0) End stage renal disease (N18.6) dependence on hemodialysis (Z99.2) (MWF) via AVF Anemia (D64.9), Hyperphosphatemia (E83.39), Secondary Hyperparathyroidism (E21.1), HTN (I12.0) Plan: Will plan for HD Thursday as ordered. Continue with Nephrovite 1 tab/day. PRBC as needed for anemia. not on DARINEL with dialysis as last Hb 11.4 Continue with phos binders, check phos level BP control with meds as ordered. Patient on RAAS jhony as losartan 100 mg/day Glycemic control, Dialysis consistent diet Further work up/management as per primary team Dose meds/antibiotics (if needed) for ESRD status. Avoid fleets enema/magnesium based laxatives. Thanks for allowing me to participate in care of your patient. Will follow patient with you. Please call if any Qs. had d/w team Dr Ananda Escalona Office: [phone] Chief Complaint; pain abdomen HPI: Pt is a 47 F with hx of ESRD on hemodialysis (MWF) via AVF , last dialysis thu, chronic anemia, hyperphosphatemia, secondary hyperparathyroidism, hypertension and chronic pancreatitis presented with complaints of pain abdomen Renal consult requested for ESRD management. pt with recurrent and multiple admissions for same says pain abdomen same ROS: Cardiovascular: No chest pain. Pulmonary: No shortness of breath Gastrointestinal: improved abdominal pain No nausea. No vomiting. Genitourinary: No pain while urinating. Denies blood in urine. All other negative except as mentioned in HPI Physical Examination: General Appearance: Comfortable, in no acute respiratory distress, co-operative . Vitals reviewed and noted as below Head; Atraumatic, normocephalic ENT: no ulcers no thrush. Tongue is midline. Oropharynx: no rash or ulcers. EYES: Pupils are equal, round and reactive to light accommodation. Eye muscles and extraocular movement intact. Sclera is anicteric. Neck; supple no lymphadenopathy, no thyromegaly or bruit Lungs: Normal respiratory rate/effort. Breath sounds bilateral equal and clear Heart: Normal rate. s1s2 normal. No rub or gallop. Extremities: no edema. No varicose veins Neurological: Patient is alert, awake and oriented to person, place and time. No focal deficit. Strength bilateral appropriate and equal Skin: Warm and dry. Normal turgor. No rash. Palpitation: Normal elasticity for age Abdomen: Abdomen is soft. Bowel sounds +. There is no abdominal tenderness, no guarding/rigidity or organomegaly Psych: normal insight and flat affect/mood MSK: no joint tenderness or swelling. Digits and nails normal, no deformity : kidney or bladder not palpable Access: AVF Labs/imaging reviewed. Past medical history, past surgical history, family history, social history, allergy reviewed and noted as below Family Hx: no hx of CKD. Non contributory Objective - Vital Signs/Intake and Output Vital Signs (last 24 hours): Temp Pulse Resp BP Pulse Ox 97.6 F 85 20 156/93 H 97 11/29/17 08:22 11/29/17 08:22 11/29/17 08:22 11/29/17 08:22 11/29/17 08:22 Intake and Output: 11/29/17 11/29/17 06:59 18:59 Intake Total 300 100 Balance 300 100 - Medications Medications: Current Medications Acetaminophen (Tylenol 325mg Tab) 650 mg PO Q6 PRN PRN Reason: Pain, moderate (4-7) Last Admin: 11/29/17 06:40 Dose: 650 mg Amlodipine Besylate (Norvasc) 10 mg PO DAILY [facility] Last Admin: 11/29/17 10:07 Dose: 10 mg Diphenhydramine HCl (Benadryl) 25 mg PO Q6 PRN PRN Reason: Itching / Pruritus Last Admin: 11/28/17 17:59 Dose: 25 mg Heparin Sodium (Porcine) (Heparin) 5,000 units SC Q12 [facility] Last Admin: 11/29/17 10:07 Dose: Not Given Heparin Sodium (Porcine) (Heparin) 2,000 units IVP [facility] Losartan Potassium (Cozaar) 100 mg PO DAILY [facility] Last Admin: 11/29/17 10:07 Dose: 100 mg Pneumococcal Polyvalent Vaccine (Pneumovax 23 Vaccine) 0.5 ml IM .ONCE ONE Stop: 11/30/17 10:01 Vitamin B Complex/Vit C/Folic Acid (Nephro-Divya) 1 tab PO 0800 [facility] Last Admin: 11/29/17 08:23 Dose: 1 tab - Labs Labs: 11/27/17 20:07 11/27/17 20:27 PT 11.5 SECONDS (9.7-12.2) 11/27/17 20:31 INR 1.1 11/27/17 20:31 APTT 33 SECONDS (21-34) 11/27/17 20:31
--- NOTE | 2017-11-30 06:46 | HP ---
HISTORY OF PRESENT ILLNESS: Ms. Adorno was admitted to the hospice with chief complaint of abdominal pain, weakness. History of renal failure, on dialysis with abdominal pain in the past. The patient came to the ER for admission. PHYSICAL EXAMINATION: GENERAL: The patient is awake, alert, oriented. VITAL SIGNS: Temperature 98, pulse 90. HEENT: Within normal limits. NECK: Supple. CHEST: Symmetrical. HEART: Regular. ABDOMEN: Soft. EXTREMITIES: No edema. IMPRESSION AND PLAN: Patient suffers from abdominal pain, . Patient on bed rest, supportive care. Horacio Loera MD
[2017-11-30] MEDS: Multivitamin Vitamin B Complex (Nephro-Vite) Tab PO SCH (08:57)
[2017-11-30] MEDS ORDERED: Pneumococcal 23-Valent Vaccine IM ONE ×2 (10:00→18:38)
--- NOTE | 2017-11-30 13:29 | CP.PCM.PN ---
Subjective - Date & Time of Evaluation Date of Evaluation: 11/30/17 Time of Evaluation: 13:25 - Subjective Subjective: PROGRESS NOTE. DR EDWARD. Pt seen and examined at bedside. No acute distress. No events overnight. Getting dialysis today. Pt refused exam and evaluation. Objective - Vital Signs/Intake and Output Vital Signs (last 24 hours): Temp Pulse Resp BP Pulse Ox 98.2 F 76 20 180/97 H 100 11/30/17 08:00 11/30/17 08:00 11/30/17 08:00 11/30/17 08:00 11/30/17 08:00 - Medications Medications: Current Medications Acetaminophen (Tylenol 325mg Tab) 650 mg PO Q6 PRN PRN Reason: Pain, moderate (4-7) Last Admin: 11/29/17 22:49 Dose: 650 mg Amlodipine Besylate (Norvasc) 10 mg PO DAILY [facility] Last Admin: 11/30/17 11:10 Dose: Not Given Diphenhydramine HCl (Benadryl) 25 mg PO Q6 PRN PRN Reason: Itching / Pruritus Last Admin: 11/30/17 01:07 Dose: 25 mg Heparin Sodium (Porcine) (Heparin) 5,000 units SC Q12 [facility] Last Admin: 11/30/17 11:10 Dose: Not Given Heparin Sodium (Porcine) (Heparin) 2,000 units IVP MWF [facility] Losartan Potassium (Cozaar) 100 mg PO DAILY [facility] Last Admin: 11/30/17 11:10 Dose: Not Given Pneumococcal Polyvalent Vaccine (Pneumovax 23 Vaccine) 0.5 ml IM .ONCE ONE Stop: 12/01/17 10:01 Vitamin B Complex/Vit C/Folic Acid (Nephro-Rosemary) 1 tab PO 0800 [facility] Last Admin: 11/30/17 08:57 Dose: 1 tab - Labs Labs: 11/27/17 20:07 11/27/17 20:27 PT 11.5 SECONDS (9.7-12.2) 11/27/17 20:31 INR 1.1 11/27/17 20:31 APTT 33 SECONDS (21-34) 11/27/17 20:31 - Head Exam Additional comments: PT refused exam. Assessment and Plan - Assessment and Plan (Free Text) Assessment: This is a 47 yo female with 1. ESRD -on hemodialysis -continue tylenol for fever -continue benadryl -heparin 2000 units MWF -nephro rosemary tabs -nephrology consult. recs appreciated. Dr. Escalona. 2. Hx of HTN. -continue norvasc 10 mg po daily -continue losartan 100 mg po daily 3. GI/DVT ppx -GI ppx not warranted -pt is ambulatory Dispo: plan for DC after dialysis
--- NOTE | 2017-11-30 14:22 | CP.PCM.PN ---
Subjective - Date & Time of Evaluation Date of Evaluation: 11/30/17 Time of Evaluation: 14:22 - Subjective Subjective: Nephrology Consultation Note: Assessment: Stable chronic pancreatitis Hypertensive Chronic Kidney Disease (I12.0) End stage renal disease (N18.6) dependence on hemodialysis (Z99.2) (MWF) via AVF Anemia (D64.9), Hyperphosphatemia (E83.39), Secondary Hyperparathyroidism (E21.1), HTN (I12.0) Plan: Will plan for HD Thursday as ordered. Continue with Nephrovite 1 tab/day. PRBC as needed for anemia. not on DARINEL with dialysis as last Hb 11.4 Continue with phos binders, check phos level BP control with meds as ordered. Patient on RAAS jhony as losartan 100 mg/day Glycemic control, Dialysis consistent diet Further work up/management as per primary team Dose meds/antibiotics (if needed) for ESRD status. Avoid fleets enema/magnesium based laxatives. Thanks for allowing me to participate in care of your patient. Will follow patient with you. Please call if any Qs. had d/w team Dr Ananda Escalona Office: [phone] Chief Complaint; pain abdomen HPI: Pt is a 47 F with hx of ESRD on hemodialysis (MWF) via AVF , last dialysis thu, chronic anemia, hyperphosphatemia, secondary hyperparathyroidism, hypertension and chronic pancreatitis presented with complaints of pain abdomen Renal consult requested for ESRD management. pt with recurrent and multiple admissions for same says pain abdomen same ROS: Cardiovascular: No chest pain. Pulmonary: No shortness of breath Gastrointestinal: improved abdominal pain No nausea. No vomiting. Genitourinary: No pain while urinating. Denies blood in urine. All other negative except as mentioned in HPI Physical Examination: General Appearance: Comfortable, in no acute respiratory distress, co-operative . Vitals reviewed and noted as below Head; Atraumatic, normocephalic ENT: no ulcers no thrush. Tongue is midline. Oropharynx: no rash or ulcers. EYES: Pupils are equal, round and reactive to light accommodation. Eye muscles and extraocular movement intact. Sclera is anicteric. Neck; supple no lymphadenopathy, no thyromegaly or bruit Lungs: Normal respiratory rate/effort. Breath sounds bilateral equal and clear Heart: Normal rate. s1s2 normal. No rub or gallop. Extremities: no edema. No varicose veins Neurological: Patient is alert, awake and oriented to person, place and time. No focal deficit. Strength bilateral appropriate and equal Skin: Warm and dry. Normal turgor. No rash. Palpitation: Normal elasticity for age Abdomen: Abdomen is soft. Bowel sounds +. There is no abdominal tenderness, no guarding/rigidity or organomegaly Psych: normal insight and flat affect/mood MSK: no joint tenderness or swelling. Digits and nails normal, no deformity : kidney or bladder not palpable Access: AVF Labs/imaging reviewed. Past medical history, past surgical history, family history, social history, allergy reviewed and noted as below Family Hx: no hx of CKD. Non contributory Objective - Vital Signs/Intake and Output Vital Signs (last 24 hours): Temp Pulse Resp BP Pulse Ox 98.2 F 76 20 180/97 H 100 11/30/17 08:00 11/30/17 08:00 11/30/17 08:00 11/30/17 08:00 11/30/17 08:00 - Medications Medications: Current Medications Acetaminophen (Tylenol 325mg Tab) 650 mg PO Q6 PRN PRN Reason: Pain, moderate (4-7) Last Admin: 11/29/17 22:49 Dose: 650 mg Amlodipine Besylate (Norvasc) 10 mg PO DAILY [facility] Last Admin: 11/30/17 11:10 Dose: Not Given Diphenhydramine HCl (Benadryl) 25 mg PO Q6 PRN PRN Reason: Itching / Pruritus Last Admin: 11/30/17 01:07 Dose: 25 mg Heparin Sodium (Porcine) (Heparin) 5,000 units SC Q12 [facility] Last Admin: 11/30/17 11:10 Dose: Not Given Heparin Sodium (Porcine) (Heparin) 2,000 units IVP [facility] Losartan Potassium (Cozaar) 100 mg PO DAILY [facility] Last Admin: 11/30/17 11:10 Dose: Not Given Pneumococcal Polyvalent Vaccine (Pneumovax 23 Vaccine) 0.5 ml IM .ONCE ONE Stop: 12/01/17 10:01 Vitamin B Complex/Vit C/Folic Acid (Nephro-Divya) 1 tab PO 0800 [facility] Last Admin: 11/30/17 08:57 Dose: 1 tab - Labs Labs: 11/27/17 20:07 11/27/17 20:27 PT 11.5 SECONDS (9.7-12.2) 11/27/17 20:31 INR 1.1 11/27/17 20:31 APTT 33 SECONDS (21-34) 11/27/17 20:31
[2017-11-30 16:02] LABS: BASO # 0.1 K/uL (0.0-0.2); BASO % 0.6 % (0.0-2.0); EOS # 0.3 K/uL (0.0-0.7); EOS % 2.4 % (0.0-4.0); HEMOGLOBIN 9.6 g/dL (11.0-16.0); MEAN CELL VOLUME 76.7 fL (81.0-99.0); MEAN CORPUSCULAR HEMOGLOBIN 25.4 pg (27.0-31.0); MEAN CORPUSCULAR HGB CONC 33.2 g/dL (33.0-37.0); MEAN PLATELET VOLUME 8.5 fL (7.2-11.7); MONO # 0.4 K/uL (0.0-0.8); MONO % 3.8 % (0.0-10.0); NEUT # 8.6 K/uL (1.8-7.0); NEUT % 83.2 % (50.0-75.0); RBC 3.79 Mil/uL (3.80-5.20); RED CELL DISTRIBUTION WIDTH 18.2 % (11.5-14.5); WHITE BLOOD COUNT 10.4 K/uL (4.8-10.8)
[2017-11-30 16:31] LABS: ALB/GLOB RATIO 1.4 (1.0-2.1); ALBUMIN 4.1 g/dL (3.5-5.0)
--- NOTE | 2017-11-30 17:23 | CARD ---
APPROVED REPORT Date of service: 11/27/2017 EKG Measurement Heart [id number] <Conclusion> Normal sinus rhythm T wave abnormality, consider lateral ischemia Prolonged QT Abnormal ECG
[2017-11-30 18:36] VITALS: BP 169/102; PULSE 79; RESP 18; TEMP 98.1; O2SAT 100
[2017-12-01] MEDS ORDERED: Pneumococcal 23-Valent Vaccine IM ONE (10:00)
--- NOTE | 2017-12-01 19:39 | CARD ---
APPROVED REPORT Date of service: 11/28/2017 EKG Measurement Heart [id number] <Conclusion> Normal sinus rhythm Possible Left atrial enlargement Septal infarct, age undetermined Abnormal ECG
== END 2017-11-30 19:54 | disposition home or self-care (01) | DRG 127 ==
LOC: C.ER 19:19 → C.9E 22:30 → C.3T 22:56
PROVIDERS: ADMIT Internal Medicine Pulmonary Disease; ATTEND Internal Medicine Pulmonary Disease
DX: I13.2 Hypertensive heart and chronic kidney disease with heart failure and with stage 5 chronic kidney disease, or end stage renal disease (principal); E11.22 Type 2 diabetes mellitus with diabetic chronic kidney disease; I50.9 Heart failure, unspecified; N18.6 End stage renal disease; K86.1 Other chronic pancreatitis; N25.81 Secondary hyperparathyroidism of renal origin; D64.9 Anemia, unspecified; Z99.2 Dependence on renal dialysis

== ENCOUNTER 2017-12-07 13:10 | Emergency (ER) | payer MEDICAID ==
[2017-12-07 13:23] VITALS: BP 204/117; PULSE 92; RESP 20; TEMP 98.6; O2SAT 97
[2017-12-07 14:25] LABS: BASO # 0.1 K/uL (0.0-0.2); BASO % 0.6 % (0.0-2.0); EOS # 0.2 K/uL (0.0-0.7); EOS % 2.1 % (0.0-4.0); HEMOGLOBIN 10.4 g/dL (11.0-16.0); LYMPH # 1.8 K/uL (1.0-4.3); MEAN CELL VOLUME 76.2 fL (81.0-99.0); MEAN CORPUSCULAR HEMOGLOBIN 25.2 pg (27.0-31.0); MEAN PLATELET VOLUME 7.7 fL (7.2-11.7); MONO # 0.5 K/uL (0.0-0.8); MONO % 5.1 % (0.0-10.0); NEUT # 7.4 K/uL (1.8-7.0); NEUT % 74.2 % (50.0-75.0); RBC 4.13 Mil/uL (3.80-5.20)
[2017-12-07 14:45] LABS: ALB/GLOB RATIO 1.4 (1.0-2.1); ALBUMIN 4.5 g/dL (3.5-5.0); CALCIUM 9.4 mg/dl (8.6-10.4)
--- NOTE | 2017-12-07 15:50 | C.PDOC ---
Time Seen by Provider: 12/07/17 13:22 Chief Complaint (Nursing): Abdominal Pain Past Medical History Vital Signs: Last Vital Signs Temp 98.6 F 12/07/17 13:16 Pulse 92 H 12/07/17 13:16 Resp 20 12/07/17 13:16 BP 204/117 H 12/07/17 13:16 Pulse Ox 97 12/07/17 13:16 - Medical History PMH: CHF, HTN, Pancreatitis, End Stage Renal Disease, Chronic Kidney Disease Denies: Crohn's Disease, Diverticulitis, Gastritis, Gall Bladder Disease - [facility] Procedures (10/10/17) Family History: States: Unknown Family Hx - Social History Hx Alcohol Use: No Hx Substance Use: No - Immunization History Hx Tetanus Toxoid Vaccination: No Hx Influenza Vaccination: Yes Hx Pneumococcal Vaccination: No ED Course And Treatment - Laboratory Results Result Diagrams: 12/07/17 14:18 12/07/17 14:18 O2 Sat by Pulse Oximetry: 97 Disposition - Disposition Forms: [employer] (Khmer)
--- NOTE | 2017-12-07 15:50 | RAD ---
Date of service: 12/07/2017 PROCEDURE: Radiographs of the chest and abdomen (obstructive series) HISTORY: abd pain, h/o pancreatitis COMPARISON: 11/27/2017. TECHNIQUE: AP radiograph of the chest, with upright and supine radiographs of the abdomen. FINDINGS: CHEST: Lungs: The lungs are well inflated. There is diffuse interstitial thickening in the lungs, worse on the right. Cardiovascular: Normal size heart. No pulmonary vascular congestion. Pleura: No pleural fluid. No pneumothorax. Other findings: None. ABDOMEN AND PELVIS: Bowel: There are gas-filled small bowel loops and gas in the colon and rectum. The bowel gas pattern is nonobstructive. Free air: None. Bones: Unremarkable. Other findings: None. IMPRESSION: Diffuse interstitial thickening in the lungs, worse on the right. No significant change. Nonobstructive bowel-gas pattern.
--- NOTE | 2017-12-07 15:53 | C.PDOC ---
History Of Present Illness 47 year old female presents to the ED for evaluation of epigastric abdominal pain. Patient went to dialysis today, but ended her treatment around [id number] prior to her normal end time. PAtient has recent admission for mild pancreatitis and uncontrolled hypertension. She denies fever, chills. Time Seen by Provider: 12/07/17 13:22 Chief Complaint (Nursing): Abdominal Pain History Per: Patient History/Exam Limitations: no limitations Onset/Duration Of Symptoms: Hrs Current Symptoms Are (Timing): Still Present Location Of Pain/Discomfort: Epigastric Quality Of Discomfort: "Pain" Associated Symptoms: denies: Fever, Chills Additional History Per: Patient Past Medical History Reviewed: Historical Data, Nursing Documentation, Vital Signs Vital Signs: Last Vital Signs Temp 98.6 F 12/07/17 13:16 Pulse 92 H 12/07/17 13:16 Resp 20 12/07/17 13:16 BP 204/117 H 12/07/17 13:16 Pulse Ox 97 12/07/17 13:16 - Medical History PMH: CHF, HTN, Pancreatitis, End Stage Renal Disease, Chronic Kidney Disease Denies: Crohn's Disease, Diverticulitis, Gastritis, Gall Bladder Disease Surgical History: No Surg Hx - [facility] Procedures (10/10/17) Family History: States: Unknown Family Hx - Social History Hx Alcohol Use: No Hx Substance Use: No - Immunization History Hx Tetanus Toxoid Vaccination: No Hx Influenza Vaccination: Yes Hx Pneumococcal Vaccination: No Review Of Systems Constitutional: Negative for: Fever, Chills Gastrointestinal: Positive for: Abdominal Pain (epigastric ) Physical Exam - Physical Exam Appears: Non-toxic, No Acute Distress, Chronically Ill Skin: Normal Color, Warm, Dry Head: Atraumatic, Normacephalic Eye(s): bilateral: Normal Inspection Oral Mucosa: Moist Neck: Supple Chest: Symmetrical, No Deformity, No Tenderness Cardiovascular: Rhythm Regular, No Murmur Respiratory: Normal Breath Sounds, No Rales, No Rhonchi, No Wheezing Gastrointestinal/Abdominal: Soft, No Tenderness, No Guarding, No Rebound Extremity: Normal ROM, Capillary Refill (less than 2 seconds ) Neurological/Psych: Oriented x3, Normal Speech, Normal Cognition ED Course And Treatment - Laboratory Results Result Diagrams: 12/07/17 14:18 12/07/17 14:18 Lab Interpretation: Normal (lipase 533) O2 Sat by Pulse Oximetry: 97 (on RA) Pulse Ox Interpretation: Normal - Radiology CXR: Interpreted by Me CXR Interpretation: Yes: No Acute Disease - Other Rad abdomen obstructive series X-Ray: Viewed By Me, Read By Radiologist Interpretation: IMPRESSION: Diffuse interstitial thickening in the lungs, worse on the right. No significant change. Nonobstructive bowel-gas pattern. Progress Note: Bloodwork, urinalysis, Obstructive Series abdomen ordered and reviewed. Catapres PO given. Reevaluation Time: 16:44 Reassessment Condition: Improved (sleeping, belly benign) - Physician Consult Information Outcome Of Conversation: 1630 and 1330: d/w Dr Lorenzo, PMD- ok to d/c home, stable mild pancreatitis Medical Decision Making Medical Decision Making: stable mild pancreatitis belly benign ok for d/c per PMD Disposition Doctor Will See Patient In The: Office Counseled Patient/Family Regarding: Studies Performed, Diagnosis - Disposition Disposition: HOME/ ROUTINE Disposition Time: 16:45 Condition: GOOD Forms: [facility] (Italian) - Clinical Impression Clinical Impression: ESRD (end stage renal disease) on dialysis, Pancreatitis - Scribe Statement The provider has reviewed the documentation as recorded by the Scribe (Raysa Kingsley) Provider Attestation: All medical record entries made by the Scribe were at my direction and personally dictated by me. I have reviewed the chart and agree that the record accurately reflects my personal performance of the history, physical exam, medical decision making, and the department course for this patient. I have also personally directed, reviewed, and agree with the discharge instructions and disposition.
== END 2017-12-07 17:41 | disposition home or self-care (01) ==
LOC: C.ER 13:10
DX: K85.90 Acute pancreatitis without necrosis or infection, unspecified (principal); I12.0 Hypertensive chronic kidney disease with stage 5 chronic kidney disease or end stage renal disease; N18.6 End stage renal disease; Z99.2 Dependence on renal dialysis

== ENCOUNTER 2017-12-12 19:32 | Emergency (ER) | payer MEDICAID ==
[2017-12-12 19:41] VITALS: RESP 20; TEMP 98.4
--- NOTE | 2017-12-12 19:55 | C.PDOC ---
History Of Present Illness 47 year old female YVETTE presents to ED complaining of dry non productive cough for past half day. Denies fever, chills, taking medication for it, chest pain, shortness of breath, nausea, vomiting, diarrhea, weakness, numbness. Time Seen by Provider: 12/12/17 19:51 Chief Complaint (Nursing): Chest Pain History Per: Patient History/Exam Limitations: no limitations Onset/Duration Of Symptoms: Hrs Current Symptoms Are (Timing): Still Present Past Medical History Reviewed: Historical Data, Nursing Documentation, Vital Signs Vital Signs: Last Vital Signs Temp 98.4 F 12/12/17 19:38 Pulse 116 H 12/12/17 19:38 Resp 20 12/12/17 19:38 BP 96/63 L 12/12/17 19:38 Pulse Ox 100 12/12/17 19:38 - Medical History PMH: CHF, HTN, Pancreatitis, End Stage Renal Disease, Chronic Kidney Disease Denies: Crohn's Disease, Diverticulitis, Gastritis, Gall Bladder Disease Surgical History: No Surg Hx - [facility] (10/10/17) Family History: States: No Known Family Hx - Social History Hx Alcohol Use: No Hx Substance Use: No - Immunization History Hx Tetanus Toxoid Vaccination: No Hx Influenza Vaccination: Yes Hx Pneumococcal Vaccination: No Review Of Systems Except As Marked, All Systems Reviewed And Found Negative. Constitutional: Negative for: Fever, Chills Cardiovascular: Negative for: Chest Pain Respiratory: Positive for: Cough (Dry non productive cough.). Negative for: Shortness of Breath Gastrointestinal: Negative for: Nausea, Vomiting, Diarrhea Neurological: Negative for: Weakness, Numbness Physical Exam - Physical Exam Appears: Non-toxic, No Acute Distress, Other (Argumentatively irratable.) Skin: Warm, Dry Head: Atraumatic, Normacephalic Eye(s): bilateral: PERRL, EOMI Oral Mucosa: Moist, Other (Dried sputum in mouth.) Neck: Supple Chest: Symmetrical, No Deformity Cardiovascular: Rhythm Regular, No Murmur Respiratory: Normal Breath Sounds, No Rales, No Rhonchi, No Wheezing Gastrointestinal/Abdominal: Soft, No Tenderness Neurological/Psych: Oriented x3 ED Course And Treatment O2 Sat by Pulse Oximetry: 100 (RA) Pulse Ox Interpretation: Normal Medical Decision Making Medical Decision Making: ? mild cough non-productive clear lungs pt insists on CXR- normal no labs required no CHF ? malingering Patient makes frequent visits to ER. Patient demands chest x-ray. When given option she prefers a standing x-ray. Disposition Doctor Will See Patient In The: Office Counseled Patient/Family Regarding: Studies Performed, Diagnosis - Disposition Referrals: Phylicia Vega MD [Staff Provider] - Jessica Kingsley MD [Staff Provider] - Disposition: HOME/ ROUTINE Disposition Time: 19:56 Condition: GOOD Additional Instructions: continue azithromycin daily until completed- 4 more days Continue Robitussin as directed follow-up w Dr. Vega or Dr. Kingsley on Thursday for further eval as needed. Prescriptions: Azithromycin 1 tab PO DAILY #4 tab guaiFENesin [guaifENESIN] 100 mg PO QID PRN #1 bottle PRN Reason: Cough Instructions: Viral Syndrome (DC) Forms: [employer] (Panamanian) - Clinical Impression Clinical Impression: Viral syndrome - Scribe Statement The provider has reviewed the documentation as recorded by the Berto Quesadaed Provider Attestation: All medical record entries made by the Berto were at my direction and personally dictated by me. I have reviewed the chart and agree that the record accurately reflects my personal performance of the history, physical exam, medical decision making, and the department course for this patient. I have also personally directed, reviewed, and agree with the discharge instructions and disposition.
[2017-12-12] MEDS ORDERED: guaiFENesin 100 mg/5 ml Syrup UD PO STA (19:56)
[2017-12-12] MEDS ORDERED: guaiFENesin 100 mg/5 ml Syrup UD ONE (20:07)
[2017-12-12 20:41] VITALS: BP 100/78; PULSE 100
[2017-12-12 21:30] VITALS: O2SAT 100
--- NOTE | 2017-12-13 09:30 | RAD ---
Date of service: 12/12/2017 HISTORY: cough COMPARISON: Abdomen obstructive series with chest 12/07/2017. TECHNIQUE: Chest PA and lateral FINDINGS: LUNGS: Diffuse reticular markings are slightly increased bilaterally once again, right greater than left. No alveolitis at bilaterally. PLEURA: No significant pleural effusion identified. No pneumothorax apparent. CARDIOVASCULAR: No aortic atherosclerotic calcification present. Mild cardiomegaly reiterated. No pulmonary vascular congestion. OSSEOUS STRUCTURES: No significant abnormalities. VISUALIZED UPPER ABDOMEN: Normal. OTHER FINDINGS: Multiple wall stents are identified at the medial proximal right upper extremity soft tissues. IMPRESSION: Possible atypical pneumonitis with diffuse Jenn increased reticular markings again seen in the subtle fashion, right greater than left. Mild cardiomegaly. No pulmonary vascular congestion.
== END 2017-12-12 20:37 | disposition home or self-care (01) ==
LOC: C.ER 19:32
DX: B34.9 Viral infection, unspecified (principal)

== ENCOUNTER 2018-01-10 19:22 | Observation (INO) | payer MEDICAID ==
--- NOTE | 2018-01-10 20:04 | C.PDOC ---
History Of Present Illness 47 year old female presents to the ED complaining of back and abdominal pain ongoing since this morning. Describes abdominal pain as dull and aching with a 3/10 discomfort. Reports she has dialysis on Thursday's, Thursday's and Thursday's. Complains she is not able to pass urine. Denies any fever, chills, nausea, vomiting, diarrhea. Time Seen by Provider: 01/10/18 20:04 Chief Complaint (Nursing): Abdominal Pain History Per: Patient History/Exam Limitations: no limitations Onset/Duration Of Symptoms: Hrs Current Symptoms Are (Timing): Still Present Context: Other Severity: Moderate Pain Scale Rating Of: 5 Location Of Pain/Discomfort: Diffuse Radiation Of Pain To:: Back Quality Of Discomfort: Dull, Aching Associated Symptoms: denies: Fever, Chills Exacerbating Factors: None Alleviating Factors: None Last Bowel Movement: Today Recent travel outside of the [place]: No Additional History Per: Patient Abnormal Vaginal Bleeding: No Past Medical History Reviewed: Historical Data, Nursing Documentation, Vital Signs Vital Signs: Last Vital Signs Temp 98 F 01/10/18 19:49 Pulse 108 H 01/10/18 19:49 Resp 18 01/10/18 19:49 BP 187/133 H 01/10/18 19:49 Pulse Ox 98 01/10/18 19:49 - Medical History PMH: CHF, HTN, Pancreatitis, End Stage Renal Disease, Chronic Kidney Disease Denies: Crohn's Disease, Diverticulitis, Gastritis, Gall Bladder Disease - [facility] (10/10/17) Family History: States: No Known Family Hx - Social History Hx Alcohol Use: No Hx Substance Use: No - Immunization History Hx Tetanus Toxoid Vaccination: No Hx Influenza Vaccination: Yes Hx Pneumococcal Vaccination: No Review Of Systems Constitutional: Negative for: Fever, Chills ENT: Negative for: Throat Pain Cardiovascular: Negative for: Chest Pain Respiratory: Positive for: Shortness of Breath Gastrointestinal: Positive for: Abdominal Pain. Negative for: Nausea, Vomiting Musculoskeletal: Positive for: Back Pain Skin: Negative for: Rash Neurological: Negative for: Weakness Psych: Negative for: Anxiety Physical Exam - Physical Exam Appears: Non-toxic, No Acute Distress Skin: Warm, Dry, No Rash Head: Normacephalic Eye(s): bilateral: Normal Inspection Oral Mucosa: Moist Neck: Supple Chest: Symmetrical Cardiovascular: Rhythm Regular Respiratory: No Rales, No Rhonchi, No Wheezing Gastrointestinal/Abdominal: Soft, Tenderness (diffused abdominal tenderness ), No Guarding, No Rebound Back: No Vertebral Tenderness, No Decreased ROM, Muscle Spasm Extremity: No Tenderness, Other (dialysis shunt on the right arm with good thrill and bruit ) Extremity: Bilateral: Atraumatic Pulses: Left Dorsalis Pedis: Normal, Right Dorsalis Pedis: Normal Neurological/Psych: Oriented x3, Normal Speech Gait: Steady ED Course And Treatment - Laboratory Results Result Diagrams: 01/10/18 21:32 01/10/18 21:32 ECG: Interpreted By Me, Viewed By Me ECG Rhythm: Sinus Rhythm (99), Nonspecific Changes O2 Sat by Pulse Oximetry: 98 (RA) Pulse Ox Interpretation: Normal - Radiology CXR: Interpreted by Me, Viewed By Me Progress Note: EKG ordered. Blood collected and sent to lab for analysis. Patien t given Protonix. Disposition Discussed With Dr.: Phylicia Vega Comment: accepted the pt on her service and took over the care at 11:27 PM Doctor Will See Patient In The: Hospital Counseled Patient/Family Regarding: Studies Performed, Diagnosis - Disposition Disposition: HOSPITALIZED Disposition Time: 20:04 Condition: FAIR Forms: [facility] (Greenlandic) - POA Present On Arrival: None - Clinical Impression Clinical Impression: Abdominal pain, ESRD (end stage renal disease) on dialysis, CHF (congestive heart failure) - Scribe Statement The provider has reviewed the documentation as recorded by the Scribe Tanja Schaefer All medical record entries made by the Scribe were at my direction and personally dictated by me. I have reviewed the chart and agree that the record accurately reflects my personal performance of the history, physical exam, medical decision making, and the department course for this patient. I have also personally directed, reviewed, and agree with the discharge instructions and disposition. Decision To Admit - Pt Status Changed To: Hospital Disposition Of: Observation - . Bed Request Type: Telemetry Admitting Physician: Phylicia Vega Patient Diagnosis: Abdominal pain, ESRD (end stage renal disease) on dialysis, CHF (congestive heart failure)
[2018-01-10 21:38] LABS: BASO # 0.2 K/uL (0.0-0.2); BASO % 1.4 % (0.0-2.0); EOS # 0.2 K/uL (0.0-0.7); EOS % 2.1 % (0.0-4.0); HEMOGLOBIN 8.9 g/dL (11.0-16.0); LYMPH # 2.3 K/uL (1.0-4.3); LYMPH % 19.5 % (20.0-40.0); MEAN CELL VOLUME 77.7 fL (81.0-99.0); MEAN CORPUSCULAR HEMOGLOBIN 25.3 pg (27.0-31.0); MEAN CORPUSCULAR HGB CONC 32.5 g/dL (33.0-37.0); MEAN PLATELET VOLUME 8.5 fL (7.2-11.7); MONO # 0.5 K/uL (0.0-0.8); MONO % 4.5 % (0.0-10.0); NEUT # 8.4 K/uL (1.8-7.0); NEUT % 72.5 % (50.0-75.0); RBC 3.51 Mil/uL (3.80-5.20); RED CELL DISTRIBUTION WIDTH 19.5 % (11.5-14.5); WHITE BLOOD COUNT 11.6 K/uL (4.8-10.8)
[2018-01-10 21:57] LABS: PROTHROMBIN TIME 11.1 SECONDS (9.7-12.2)
[2018-01-10 22:09] LABS: ALB/GLOB RATIO 1.2 (1.0-2.1); ALBUMIN 4.2 g/dL (3.5-5.0); CALCIUM 9.4 mg/dl (8.6-10.4)
[2018-01-11 08:48] VITALS: RESP 20
--- NOTE | 2018-01-11 09:45 | CARD ---
APPROVED REPORT Date of service: 01/10/2018 EKG Measurement Heart [id number] <Conclusion> Normal sinus rhythm Cannot rule out Anterior infarct, age undetermined Abnormal ECG
[2018-01-11] MEDS: Pantoprazole 40 mg EC Tab PO SCH (09:55)
[2018-01-11] MEDS ORDERED: Losartan 12.5 MG TAB PO SCH (10:00)
--- NOTE | 2018-01-11 17:23 | CP.PCM.HP ---
History of Present Illness - History of Present Illness History of Present Illness: pt came to ed and admited for abd pain sob chf esrf on dialysis Present on Admission - Present on Admission Any Indicators Present on Admission: No Review of Systems - Review of Systems Systems not reviewed;Unavailable: Acuity of Condition, Respiratory Distress - Constitutional Constitutional: Fatigue - EENT Eyes: As Per HPI Ears: As Per HPI Nose/Mouth/Throat: As Per HPI - Breasts Breasts: As Per HPI - Cardiovascular Cardiovascular: Dyspnea, Dyspnea on Exertion - Respiratory Respiratory: Dyspnea - Gastrointestinal Gastrointestinal: Abdominal Pain, Bloating, Cramping - Genitourinary Genitourinary: As Per HPI - Reproductive: Female Reproductive:Female: As Per HPI - Menstruation Menstruation: As Per HPI - Musculoskeletal Musculoskeletal: As Per HPI - Integumentary Integumentary: As Per HPI - Neurological Neurological: As Per HPI - Psychiatric Psychiatric: As Per HPI - Endocrine Endocrine: As Per HPI - Hematologic/Lymphatic Hematologic: As Per HPI Additional comments: aneamia Past Patient History - Infectious Disease Hx of Infectious Diseases: None - Past Medical History & Family History Past Medical History?: Yes - Past Social History Smoking Status: Never Smoked - CARDIAC Hx Congestive Heart Failure: Yes Hx Hypertension: Yes - PULMONARY Hx Respiratory Disorders: No - NEUROLOGICAL Hx Neurological Disorder: No - HEENT Hx HEENT Problems: No - RENAL Hx Chronic Kidney Disease: Yes - ENDOCRINE/METABOLIC Hx Endocrine Disorders: Yes Hx Diabetes Mellitus Type 2: Yes - HEMATOLOGICAL/ONCOLOGICAL Hx Blood Disorders: No Hx Cirrhosis: No Hx Hepatitis A: No Hx Hepatitis B: No Hx Hepatitis C: No - INTEGUMENTARY Hx Dermatological Problems: No - MUSCULOSKELETAL/RHEUMATOLOGICAL Hx Falls: No - GASTROINTESTINAL Hx Crohn's Disease: No Hx Diverticulitis: No Hx Gall Bladder Disease: No Hx Gastritis: No Hx Pancreatitis: Yes - GENITOURINARY/GYNECOLOGICAL Hx Genitourinary Disorders: No - PSYCHIATRIC Hx Substance Use: No - SURGICAL HISTORY Hx Surgeries: Yes Hx Section: Yes (X2) Hx Vascular Access Device: Yes (RIGHT AV SHUNT 5 YEARS AGO) - ANESTHESIA Hx Anesthesia: Yes Hx Anesthesia Reactions: No Hx Malignant Hyperthermia: No Meds Allergies/Adverse Reactions: Allergies Allergy/AdvReac Type Severity Reaction Status Date / Time No Known Allergies Allergy Verified 01/10/18 19:52 Physical Exam - Constitutional Appears: In Acute Distress - Head Exam Head Exam: ATRAUMATIC - Eye Exam Eye Exam: Normal appearance - ENT Exam ENT Exam: Mucous Membranes Moist - Neck Exam Neck exam: Positive for: Full Rom - Respiratory Exam Respiratory Exam: Decreased Breath Sounds - Cardiovascular Exam Cardiovascular Exam: REGULAR RHYTHM - GI/Abdominal Exam GI & Abdominal Exam: Tenderness - Extremities Exam Extremities exam: Positive for: normal inspection - Back Exam Back exam: FULL ROM - Neurological Exam Neurological exam: Alert, Oriented x3 - Psychiatric Exam Psychiatric exam: Normal Mood - Skin Skin Exam: Abrasion Results - Vital Signs Recent Vital Signs: Last Vital Signs Temp 97.3 F L 01/11/18 13:00 Pulse 85 01/11/18 16:20 Resp 20 01/11/18 14:07 BP 149/86 01/11/18 15:30 Pulse Ox 99 01/11/18 13:00 - Labs Result Diagrams: 01/10/18 21:32 01/10/18 21:32 Labs: Laboratory Results - last 24 hr 01/10/18 01/10/18 01/10/18 21:32 21:32 21:41 WBC 11.6 H RBC 3.51 L Hgb 8.9 L Hct 27.3 L MCV 77.7 L MCH 25.3 L MCHC 32.5 L RDW 19.5 H Plt Count 274 MPV 8.5 Neut % (Auto) 72.5 Lymph % (Auto) 19.5 L Foster % (Auto) 4.5 Eos % (Auto) 2.1 Baso % (Auto) 1.4 Neut # (Auto) 8.4 H Lymph # (Auto) 2.3 Foster # (Auto) 0.5 Eos # (Auto) 0.2 Baso # (Auto) 0.2 PT 11.1 INR 1.0 APTT 27 Sodium 139 Potassium 4.1 Chloride 98 Carbon Dioxide 25 Anion Gap 19 BUN 63 H Creatinine 8.2 H* D Est GFR ( Amer) 6 Est GFR (Non-Af Amer) 5 Random Glucose 69 Calcium 9.4 Total Bilirubin 0.6 AST 31 ALT 12 Alkaline Phosphatase 365 H D NT-Pro-B Natriuret Pep Total Protein 7.6 Albumin 4.2 Globulin 3.4 Albumin/Globulin Ratio 1.2 Lipase 252 01/10/18 22:48 WBC RBC Hgb Hct MCV MCH MCHC RDW Plt Count MPV Neut % (Auto) Lymph % (Auto) Foster % (Auto) Eos % (Auto) Baso % (Auto) Neut # (Auto) Lymph # (Auto) Foster # (Auto) Eos # (Auto) Baso # (Auto) PT INR APTT Sodium Potassium Chloride Carbon Dioxide Anion Gap BUN Creatinine Est GFR ( Amer) Est GFR (Non-Af Amer) Random Glucose Calcium Total Bilirubin AST ALT Alkaline Phosphatase NT-Pro-B Natriuret Pep 64244 H Total Protein Albumin Globulin Albumin/Globulin Ratio Lipase Assessment & Plan - Assessment and Plan (Free Text) Assessment: ac recurent chf aneamia esrf ac abd pain Plan: as per orders - Date & Time Date: 01/11/18 Time: 17:25
--- NOTE | 2018-01-11 19:00 | RAD ---
HISTORY: chf COMPARISON: Chest x-ray performed 12/12/17 TECHNIQUE: Chest PA and lateral FINDINGS: LUNGS: Mild pulmonary venous congestion. No focal consolidation. Please note that chest x-ray has limited sensitivity for the detection of pulmonary masses. PLEURA: No significant pleural effusion identified. No definite pneumothorax . CARDIOVASCULAR: Cardiomegaly. No atherosclerotic calcification present. OSSEOUS STRUCTURES: Degenerative changes. VISUALIZED UPPER ABDOMEN: Unremarkable. OTHER FINDINGS: Right upper extremity vascular stent. IMPRESSION: Mild pulmonary venous congestion. Cardiomegaly.
[2018-01-12 08:31] LABS: HEMOGLOBIN 10.1 g/dL (11.0-16.0); MEAN CELL VOLUME 76.8 fL (81.0-99.0); MEAN CORPUSCULAR HEMOGLOBIN 25.8 pg (27.0-31.0); MEAN CORPUSCULAR HGB CONC 33.7 g/dL (33.0-37.0); MEAN PLATELET VOLUME 7.8 fL (7.2-11.7); RBC 3.91 Mil/uL (3.80-5.20); RED CELL DISTRIBUTION WIDTH 19.4 % (11.5-14.5); WHITE BLOOD COUNT 8.2 K/uL (4.8-10.8)
[2018-01-12] MEDS: Pantoprazole 40 mg EC Tab PO SCH (10:54)
--- NOTE | 2018-01-12 12:29 | CP.PCM.PN ---
Subjective - Date & Time of Evaluation Date of Evaluation: 01/12/18 Time of Evaluation: 12:27 - Subjective Subjective: pt feels beter no pain no sob Objective - Vital Signs/Intake and Output Vital Signs (last 24 hours): Temp Pulse Resp BP Pulse Ox 98.0 F 88 20 178/112 H 100 01/12/18 07:00 01/12/18 07:00 01/12/18 07:00 01/12/18 09:03 01/12/18 07:00 Intake and Output: 01/12/18 01/12/18 06:59 18:59 Intake Total 500 Balance 500 - Medications Medications: Current Medications Amlodipine Besylate (Norvasc) 10 mg PO DAILY [facility] Last Admin: 01/12/18 10:54 Dose: 10 mg Ascorbic Acid (Vitamin C 250 Mg Tab) 250 mg PO DAILY [facility] Last Admin: 01/12/18 10:55 Dose: 250 mg Heparin Sodium (Porcine) (Heparin) 5,000 units SC BID [facility] Last Admin: 01/12/18 10:54 Dose: 5,000 units Heparin Sodium (Porcine) (Heparin) 2,000 units IVP MWF [facility] Last Admin: 01/11/18 14:41 Dose: 2,000 units Hydralazine HCl (Apresoline) 25 mg PO Q4 PRN PRN Reason: Other Last Admin: 01/12/18 11:33 Dose: 25 mg Labetalol HCl (Trandate) 200 mg PO BID [facility] Last Admin: 01/12/18 11:33 Dose: 200 mg Losartan Potassium (Cozaar) 100 mg PO DAILY [facility] Last Admin: 01/12/18 10:54 Dose: 100 mg Metoclopramide HCl (Reglan) 5 mg PO BID [facility] Last Admin: 01/12/18 10:54 Dose: 5 mg Pantoprazole Sodium (Protonix Ec Tab) 40 mg PO DAILY [facility] Last Admin: 01/12/18 10:54 Dose: 40 mg Tramadol HCl (Ultram) 50 mg PO Q8 PRN PRN Reason: Pain, Mild (1-3) Last Admin: 01/11/18 08:35 Dose: 50 mg - Labs Labs: 01/12/18 08:23 01/10/18 21:32 PT 11.1 SECONDS (9.7-12.2) 01/10/18 21:41 INR 1.0 01/10/18 21:41 APTT 27 SECONDS (21-34) 01/10/18 21:41 - Constitutional Appears: Non-toxic - Head Exam Head Exam: NORMAL INSPECTION - Eye Exam Eye Exam: Normal appearance Pupil Exam: NORMAL ACCOMODATION - ENT Exam ENT Exam: Mucous Membranes Moist - Neck Exam Neck Exam: Full ROM - Respiratory Exam Respiratory Exam: Clear to Ausculation Bilateral - Cardiovascular Exam Cardiovascular Exam: REGULAR RHYTHM - GI/Abdominal Exam GI & Abdominal Exam: Normal Bowel Sounds - Exam External exam: NORMAL EXTERNAL EXAM - Back Exam Back Exam: CVA tenderness (L) - Neurological Exam Neurological Exam: Alert, Normal Gait, Oriented x3 - Skin Skin Exam: Normal Color Assessment and Plan - Assessment and Plan (Free Text) Assessment: chf aneamia esrf Plan: dchome today cont all med f.u in office
--- NOTE | 2018-01-12 13:59 | PCM.HF ---
Heart Failure Core Measure - Heart Failure Ejection Fraction: 40 % or Greater Left Ventricular Function to be assessed after discharge: Yes VINITA Inhibitor Prescribed: No Contraindication/Reason for not providing: on ARB Beta-Jean-Paul Prescribed: None Contraindication/Reason for not providing: asthma Angiotensin II Receptor Jean-Paul Prescribed: Yes AnticoagulationTherapy for Atrial Fibrillation/Atrialflutter: No Contraindication/Reason for not providing: no hx of a fib Aldosterone Antagonist Prescribed: No Contraindication/Reason for not providing: ESRD Hydralazine Nitrate Prescribed: Yes Implantable Cardioverter Defibrillator Therapy: No Contraindication/Reason for not providing: [email or web address] Cardiac Resynchronization Therapy Prescribed: No Contraindication/Reason for not providing: ef.[email or web address] - Follow up Will be discharged to: Home Follow Up Date (must be within 7 days from discharge): 01/15/18 Follow Up Time: 12:00
[2018-01-12 15:52] VITALS: BP 138/80; PULSE 92; TEMP 98.2; O2SAT 98
--- NOTE | 2018-01-12 19:09 | CARD ---
APPROVED REPORT Date of service: 01/11/2018 EKG Measurement Heart [id number] <Conclusion> Normal sinus rhythm Septal infarct, age undetermined Possible Lateral infarct, age undetermined Abnormal ECG
== END 2018-01-12 16:09 | disposition home or self-care (01) ==
LOC: C.ER 19:22 → C.9E 23:25 → C.5S 01-11 06:52
PROVIDERS: ADMIT Internal Medicine; ATTEND Internal Medicine
DX: I13.2 Hypertensive heart and chronic kidney disease with heart failure and with stage 5 chronic kidney disease, or end stage renal disease (principal); E11.22 Type 2 diabetes mellitus with diabetic chronic kidney disease; N18.6 End stage renal disease; I50.9 Heart failure, unspecified; Z99.2 Dependence on renal dialysis
CPT/HCPCS: 36415; 71046; 80053; 83690; 83880; 85025; 85027; 85610; 85730; 93005; 96372; 96374; 96375; 99285; C9113; G0257; G0378; J1644; J1885

== ENCOUNTER 2018-01-16 23:21 | Emergency (ER) | payer MEDICAID ==
--- NOTE | 2018-01-17 00:12 | C.PDOC ---
History Of Present Illness 47 year old female with PMHx of ESRD on hemodialysis (MWF) wia AV[facility], last dialysis on Thursday, chronic anemia, hyperphosphatemia, secondary hyperparathyroidism, HTN and chronic pancreatitis presents to the ED stating "I think I have pancreatitis again". Patient c/o left sided abdominal pain for the past 2 days, localized pain associated with vomiting. Patient's last HD was 01/15. Recently discharged 01/13 for abdominal pain. Multiple prior ED visits, admission for same. Patient denies fever, chills, diarrhea, constipation, rash, dysuria, hematuria, weakness, numbness, recent travel, sick contacts. "I THINK I HAVE PANCREATITIS AGAIN". L SIDED ABD PAIN X 2 DAYS. LOCALIZED. +VOMITING. hx of ESRD on hemodialysis (MWF) via AVF , last dialysis thu, chronic anemia, hyperphosphatemia, secondary hyperparathyroidism, hypertension and chronic pancreatitis. LAST HD 01/15. RECENT DC 01/13 FOR ABD PAIN. MULT PRIOR ER VISITS, ADMISSIONS FOR SAME. NO FEVER. EXAM MILD DIST NONTOXIC ABD SOFT +L LOWER ABD PAIN NO R/G REMAIDNER NEG Time Seen by Provider: 01/17/18 00:01 Chief Complaint (Nursing): GI Problem History Per: Patient History/Exam Limitations: no limitations Onset/Duration Of Symptoms: Days (2) Current Symptoms Are (Timing): Still Present Severity: Severe Location Of Pain/Discomfort: LUQ, LLQ Quality Of Discomfort: "Pain" Associated Symptoms: Vomiting. denies: Diarrhea, Constipation, Urinary Symptoms Alleviating Factors: None Recent travel outside of the [place]: No Additional History Per: Patient Abnormal Vaginal Bleeding: No Past Medical History Reviewed: Historical Data, Nursing Documentation, Vital Signs Vital Signs: Last Vital Signs Temp 98.5 F 01/16/18 23:28 Pulse 79 01/16/18 23:28 Resp 20 01/16/18 23:28 BP 196/116 H 01/16/18 23:28 Pulse Ox 96 01/16/18 23:28 - Medical History PMH: CHF, HTN, Pancreatitis, End Stage Renal Disease, Chronic Kidney Disease Denies: Crohn's Disease, Diverticulitis, Gastritis, Gall Bladder Disease Surgical History: No Surg Hx - [facility] Procedures (10/10/17) Family History: States: Unknown Family Hx - Social History Hx Alcohol Use: No Hx Substance Use: No - Immunization History Hx Tetanus Toxoid Vaccination: No Hx Influenza Vaccination: Yes Hx Pneumococcal Vaccination: No Review Of Systems Constitutional: Negative for: Fever, Chills Cardiovascular: Negative for: Chest Pain, Palpitations Respiratory: Negative for: Cough, Shortness of Breath Gastrointestinal: Positive for: Nausea, Vomiting, Abdominal Pain. Negative for: Diarrhea Genitourinary: Negative for: Dysuria, Hematuria Musculoskeletal: Negative for: Back Pain Skin: Negative for: Rash Neurological: Negative for: Weakness, Numbness Physical Exam - Physical Exam Appears: Non-toxic, In Acute Distress Skin: Normal Color, Warm, Dry Head: Atraumatic, Normacephalic Eye(s): bilateral: Normal Inspection Oral Mucosa: Moist Neck: Normal ROM, Supple Chest: Symmetrical Cardiovascular: Rhythm Regular Respiratory: Normal Breath Sounds, No Rales, No Rhonchi, No Wheezing Gastrointestinal/Abdominal: Soft, Tenderness (left lower abdomen ), No Guarding, No Rebound Back: No CVA Tenderness Extremity: Normal ROM, No Tenderness, No Swelling Neurological/Psych: Oriented x3, Normal Speech, Normal Cognition Gait: Steady ED Course And Treatment - Laboratory Results Result Diagrams: 01/17/18 00:39 01/17/18 00:39 O2 Sat by Pulse Oximetry: 96 (ON RA) Pulse Ox Interpretation: Normal - CT Scan/US CT abd/pelvis Other Rad Studies (CT/US): Read By Radiologist, Radiology Report Reviewed CT/US Interpretation: CT of the abdomen and pelvis without contrast. Clinical statement: Pain. Technique: Multiple axial CT images were obtained from the base of the lungs to the floor of the pelvis utilizing 5 mm axial slices without administration of contrast. Coronal and sagittal reconstructions were also obtained. Comparison: None. Findings: Chest: The visualized lung bases are clear. Abdomen: The kidneys are atrophic bilaterally. There is no evidence of hydronephrosis or nephrolithiasis. The liver, spleen, pancreas, gallbladder and adrenal glands are unremarkable. The aorta demonstrates normal caliber and contour. There is no abdominal lymphadenopathy or ascites. There is moderate fluid distention small bowel, with diffuse bowel wall thickening. Pelvis: The colon demonstrates several scattered air fluid levels, without any obstructive or inflammatory changes. The urinary bladder is within normal limits. There is no pelvic lymphadenopathy or ascites. There is a simple low attenuation lesion in the left adnexa measuring 3.9 x 3.1 cm. The other pelvic structures appear unremarkable. Bones: There are no suspicious osseous abnormalities seen. Mixed lytic and sclerotic changes within the osseous structures is consistent with chronic renal disease. Impression: 1. Mild small bowel enteritis. 2. Fluid distention of the distal colon is nonspecific, but could represent a mild colitis in the appropriate clinical setting. 3. No evidence of bowel obstru ction. 4. Simple left ovarian cyst. 5. Chronic atrophy of the kidneys bilaterally. No evidence of hydronephrosis or nephrolithiasis. . Electronically signed on Jan 17, 2018 3:23:25 AM EST by: Ravinder Garrison M.D., NOHEMI Certified By ABR & CBCCT. Fellowship Trained MRI and CT Specialist Progress - Re-Evaluation Re-evaluation Note: 01/17/18 00:22 RN STATES PT WAS DC FROM [facility] [place] ER PRIOR TO ARRIVAL, CONTRARY TO PT INITIAL HX OF NOT HAVING RECENT ER EVALUATION. L FLANK PAIN S/P NONCONT CT. LIPASE 523. 01/17/18 05:[address] REPORT REVIEWED. - Data Reviewed Data Reviewed: Lab, Diagnostic imaging, Old records Medical Decision Making Medical Decision Making: Plan: * CT abd/pelvis * Labs * Dilaudid 1 mg PO * Zofran 4 mgIVP * UA Disposition Counseled Patient/Family Regarding: Studies Performed, Diagnosis, Need For Followup - Disposition Referrals: Phylicia Vega MD [Staff Provider] - Disposition: HOME/ ROUTINE Disposition Time: 05:04 Condition: IMPROVED Instructions: Acute Abdomen (Belly Pain), Adult (DC) Forms: [facility] (Danish) - Clinical Impression Clinical Impression: ESRD (end stage renal disease) on dialysis, Chronic abdominal pain - Scribe Statement The provider has reviewed the documentation as recorded by the Scribe Vinicio Vasquez All medical record entries made by the Scribe were at my direction and personally dictated by me. I have reviewed the chart and agree that the record accurately reflects my personal performance of the history, physical exam, medical decision making, and the department course for this patient. I have also personally directed, reviewed, and agree with the discharge instructions and disposition.
[2018-01-17] MEDS ORDERED: Iohexol 240 (50 ml) PO STA (00:17)
[2018-01-17] MEDS ORDERED: Iohexol 240 (50 ml) ONE (00:37)
[2018-01-17 00:42] LABS: BASO # 0.1 K/uL (0.0-0.2); BASO % 0.9 % (0.0-2.0); EOS # 0.2 K/uL (0.0-0.7); EOS % 2.6 % (0.0-4.0); HEMOGLOBIN 9.6 g/dL (11.0-16.0); LYMPH # 1.8 K/uL (1.0-4.3); LYMPH % 23.8 % (20.0-40.0); MEAN CELL VOLUME 77.2 fL (81.0-99.0); MEAN CORPUSCULAR HEMOGLOBIN 25.2 pg (27.0-31.0); MEAN CORPUSCULAR HGB CONC 32.6 g/dL (33.0-37.0); MEAN PLATELET VOLUME 8.1 fL (7.2-11.7); MONO # 0.5 K/uL (0.0-0.8); MONO % 6.8 % (0.0-10.0); NEUT # 4.9 K/uL (1.8-7.0); NEUT % 65.9 % (50.0-75.0); RBC 3.83 Mil/uL (3.80-5.20); RED CELL DISTRIBUTION WIDTH 19.1 % (11.5-14.5); WHITE BLOOD COUNT 7.4 K/uL (4.8-10.8)
[2018-01-17 01:34] LABS: ALB/GLOB RATIO 1.4 (1.0-2.1); ALBUMIN 4.5 g/dL (3.5-5.0); CALCIUM 9.7 mg/dl (8.6-10.4)
[2018-01-17] MEDS ORDERED: Labetalol 25mg/5ml Syringe IVP STA (05:17)
[2018-01-17] MEDS ORDERED: Labetalol 5mg/ml (4ml) ONE (05:21)
[2018-01-17 05:23] VITALS: TEMP 98.3
[2018-01-17 05:44] VITALS: BP 133/79; PULSE 90; RESP 16; O2SAT 96
--- NOTE | 2018-01-17 10:28 | CT ---
Date of service: 01/17/2018 PROCEDURE: CT Abdomen and Pelvis with contrast HISTORY: Abdominal pain COMPARISON: 11/01/2017. TECHNIQUE: CT scan of the abdomen and pelvis was performed after administration of intravenous contrast. Oral contrast was administered. Coronal and sagittal reformatted images were obtained. Contrast dose: Radiation dose: Total exam DLP = 573.62 mGy-cm. This CT exam was performed using one or more of the following dose reduction techniques: Automated exposure control, adjustment of the mA and/or kV according to patient size, and/or use of iterative reconstruction technique. FINDINGS: LOWER THORAX: The visualized lungs are clear. LIVER: Normal in size. No gross lesion or ductal dilatation. GALLBLADDER AND BILE DUCTS: Well distended. No calcified gallstones, wall thickening or pericholecystic fluid. PANCREAS: Normal in size. No gross lesion or ductal dilatation. SPLEEN: The spleen is normal in size. ADRENALS: No discrete nodule. KIDNEYS AND URETERS: The kidneys are atrophic. No hydronephrosis. VASCULATURE: No aortic aneurysm. No aortic atherosclerotic calcifications present. BOWEL: There is moderate circumferential mural thickening in the stomach and proximal small bowel. There are air-fluid levels in the small bowel and left colon.. The colon is grossly normal in appearance. No bowel wall thickening or obstruction. APPENDIX: Normal appendix. PERITONEUM: No free fluid. No free air. LYMPH NODES: No enlarged lymph nodes. BLADDER: Partially decompressed. REPRODUCTIVE: The uterus is normal in size. There is a 3.7 x 3.1 cm simple cyst in the left ovary. BONES: No acute fracture. The osseous changes of renal osteodystrophy. OTHER FINDINGS: None. IMPRESSION: 1. Air-fluid levels in the small bowel and left colon could be related to nonspecific enterocolitis or diarrhea. No bowel obstruction. 2. Apparent moderate circumferential mural thickening in the stomach and proximal jejunum is nonspecific and could be related to underdistention however underlying gastritis/enteritis is also a consideration. Clinical follow-up is advised. 3. 3.7 cm simple cyst in the left ovary. 4. Bilateral renal atrophy. A preliminary report was provided by [employer].
== END 2018-01-17 06:32 | disposition home or self-care (01) ==
LOC: C.ER 23:21
DX: I12.0 Hypertensive chronic kidney disease with stage 5 chronic kidney disease or end stage renal disease (principal); N18.6 End stage renal disease; Z99.2 Dependence on renal dialysis; G89.29 Other chronic pain; R10.32 Left lower quadrant pain; I50.9 Heart failure, unspecified
CPT/HCPCS: 74176; 80053; 83690; 85025; 96374; 96375; 99285; J2405; Q9966

== ENCOUNTER 2018-02-16 13:20 | Emergency (ER) | payer MEDICAID ==
--- NOTE | 2018-02-16 14:26 | C.PDOC ---
History Of Present Illness 47 year old female, whose past medical history includes ESRD (MWF dialysis) and pancreatitis, presents to the ED for evaluation of abdominal pain, nausea, vomiting and diarrhea which began after she received dialysis yesterday. Patient was able to receive full dialysis yesterday. Patient has history of recent hospitalization for pancreatitis, and states current symptoms feel the same. Patient denies fever, chills, dizziness, cough, chest pain, syncope, or recent travel. Patient states she does not make urine. Review of prior records shows patient has had multiple previous visits for the same. Time Seen by Provider: 02/16/18 13:24 Chief Complaint (Nursing): Abdominal Pain History Per: Patient History/Exam Limitations: no limitations Onset/Duration Of Symptoms: Days Current Symptoms Are (Timing): Still Present Quality Of Discomfort: "Pain" Recent travel outside of the [place]: No Past Medical History Reviewed: Historical Data, Nursing Documentation, Vital Signs Vital Signs: Last Vital Signs Temp 98.5 F 02/16/18 13:53 Pulse 88 02/16/18 13:53 Resp 16 02/16/18 13:53 BP 126/73 02/16/18 13:53 Pulse Ox 97 02/16/18 13:53 - Medical History PMH: CHF, HTN, Pancreatitis, End Stage Renal Disease, Chronic Kidney Disease Denies: Crohn's Disease, Diverticulitis, Gastritis, Gall Bladder Disease Surgical History: No Surg Hx - [facility] Procedures (10/10/17) Family History: States: Unknown Family Hx - Social History Hx Alcohol Use: No Hx Substance Use: No - Immunization History Hx Tetanus Toxoid Vaccination: No Hx Influenza Vaccination: Yes Hx Pneumococcal Vaccination: No Review Of Systems Constitutional: Negative for: Fever, Chills Cardiovascular: Negative for: Chest Pain Respiratory: Negative for: Cough Gastrointestinal: Positive for: Nausea, Vomiting, Abdominal Pain, Diarrhea Physical Exam - Physical Exam Appears: Non-toxic, No Acute Distress Skin: Normal Color, Warm, Dry Head: Atraumatic, Normacephalic Eye(s): bilateral: Normal Inspection Ear(s): Bilateral: Normal Nose: Normal, No Discharge Oral Mucosa: Moist Throat: Normal, No Erythema, No Exudate Neck: Supple Chest: Symmetrical, No Deformity, No Tenderness Cardiovascular: Rhythm Regular, No Murmur, Other (mild tachycardia. normal S1/S2) Respiratory: Normal Breath Sounds, No Rales, No Rhonchi, No Wheezing Gastrointestinal/Abdominal: Bowel Sounds, Soft, Tenderness (epigastric ), No Guarding, No Rebound Extremity: Normal ROM, Capillary Refill (less than 2 seconds ), Other (right upper extremity graft with good thrill and bruit. no edema ) Neurological/Psych: Oriented x3, Normal Speech, Normal Cognition ED Course And Treatment - Laboratory Results Result Diagrams: 02/16/18 15:25 02/16/18 15:25 O2 Sat by Pulse Oximetry: 97 (on RA) Pulse Ox Interpretation: Normal Medical Decision Making Medical Decision Making: Impression: 47 year old female with abdominal pain, nausea, vomiting, diarrhea Plan: * bloodwork * CT A/P * Morphine IVP * Zofran IVP * reassess and disposition Progress: Bloodwork and CT A/P ordered and reviewed. Morphine IVP and Zofran IVP given. On reassessment, patient is resting comfortably, showing no signs of distress and reports an improvement in her symptoms. Patient it tolerating PO intake and is requesting food to eat. Patient is stable for discharge. She is advised to follow up with her PMD within 1-2 days for further evaluation. Disposition Counseled Patient/Family Regarding: Studies Performed, Diagnosis, Need For Followup - Disposition Disposition: HOME/ ROUTINE Disposition Time: 21:10 Condition: IMPROVED Additional Instructions: SHAKIRA TINSLEY, thank you for letting us take care of you today. Your provider was Giselle Puga MD and you were treated for ABDOMINAL PAIN. The emergency medical care you received today was directed at your acute symptoms. If you were prescribed any medication, please fill it and take as directed. It may take several days for your symptoms to resolve. Return to the Emergency Department if your symptoms worsen, do not improve, or if you have any other problems. Please contact your doctor. Bring any paperwork you were given at discharge with you along with any medications you are taking to your follow up visit. Our treatment cannot replace ongoing medical care by a primary care provider outside of the emergency department. Thank you for allowing the [facility] team to be part of your care today. Instructions: Acute Abdomen (Belly Pain), Adult (DC), Nausea and Vomiting, Adult (DC), Diarrhea in Adolescents and Adults Forms: [facility] (Maltese), General Discharge Instructions - Clinical Impression Clinical Impression: Diarrhea, Vomiting, Elevated lipase, Enteritis, ESRD (end stage renal disease) on dialysis, Abdominal pain - Scribe Statement The provider has reviewed the documentation as recorded by the Scribe (aRysa Kingsley) Provider Attestation: All medical record entries made by the Scribe were at my direction and personally dictated by me. I have reviewed the chart and agree that the record accurately reflects my personal performance of the history, physical exam, medical decision making, and the department course for this patient. I have also personally directed, reviewed, and agree with the discharge instructions and disposition.
[2018-02-16 15:30] LABS: BASO # 0.1 K/uL (0.0-0.2); BASO % 0.7 % (0.0-2.0); EOS # 0.1 K/uL (0.0-0.7); EOS % 0.6 % (0.0-4.0); LYMPH # 1.6 K/uL (1.0-4.3); LYMPH % 17.3 % (20.0-40.0); MEAN CELL VOLUME 79.1 fL (81.0-99.0); MEAN CORPUSCULAR HEMOGLOBIN 26.3 pg (27.0-31.0); MEAN CORPUSCULAR HGB CONC 33.3 g/dL (33.0-37.0); MEAN PLATELET VOLUME 7.5 fL (7.2-11.7); MONO # 0.5 K/uL (0.0-0.8); MONO % 5.6 % (0.0-10.0); NEUT # 6.9 K/uL (1.8-7.0); NEUT % 75.8 % (50.0-75.0); RBC 4.53 Mil/uL (3.80-5.20); RED CELL DISTRIBUTION WIDTH 19.7 % (11.5-14.5); WHITE BLOOD COUNT 9.1 K/uL (4.8-10.8)
[2018-02-16 15:31] LABS: HEMOGLOBIN 11.9 g/dL (11.0-16.0)
[2018-02-16 15:41] LABS: ALB/GLOB RATIO 1.3 (1.0-2.1); ALBUMIN 5.2 g/dL (3.5-5.0); CALCIUM 9.5 mg/dl (8.6-10.4)
[2018-02-16] MEDS ORDERED: Morphine 4 MG/ML VIAL ONE (18:12)
[2018-02-16 20:31] VITALS: O2SAT 97
[2018-02-16 21:41] VITALS: BP 145/82; PULSE 86; RESP 20; TEMP 99.1
--- NOTE | 2018-02-17 08:51 | CT ---
CT abdomen and pelvis HISTORY: Abdominal pain. COMPARISON: 01/17/2018 TECHNIQUE: Multiple contiguous axial images were performed through the abdomen and pelvis without the use of intravenous contrast. Subsequently, sagittal and coronal reformatted images were obtained. This CT exam was performed using one or more of the following dose reduction techniques: Automated exposure control, adjustment of the mA and/or kV according to patient size, and/or use of iterative reconstruction technique. Findings: Limited study secondary to lack of contrast. Hyperinflation of the lung wood suggestive for COPD and or emphysematous changes. Clinical correlation. No pleural or pericardial effusion. Liver is grossly preserved. Distended gallbladder. Spleen is preserved. Mild nodularity of the adrenal glands. Pancreas is preserved. Small hiatal hernia. Underdistention and or mild thickening of the gastric wall. Few distended and or mildly dilated loops of small bowel seen within the upper mid abdomen which appear mildly thickened which may represent an enteritis. Clinical correlation. Atrophic kidneys bilaterally. 7 millimeter low-attenuation lesion in the upper pole of the left kidney, too small to adequately characterize. Atherosclerotic calcification and plaque within the aorta. Thick-walled urinary bladder which may represent an underlying cystitis. Heterogeneous uterus and bilateral adnexa. Suggestion of a bilobed left adnexal cyst measuring up to 5 centimeters as well as a suggestion of a right adnexal cyst measuring up to 1.7 centimeters. Correlation with pelvic ultrasound may be helpful if clinically indicated. Few scattered colonic diverticuli. Scattered areas of fluid within the colon which may represent diarrheal illness. Clinical correlation. Appendix not well visualized on this noncontrast study. Atherosclerotic calcification and plaque within the aorta. Few shotty para-aortic and mesenteric nodes. Degenerative changes in the spine. Mixed sclerotic and lytic appearance of the bones which may be secondary to chronic renal osteodystrophy with scattered areas of bone resorption for example at the level the bilateral SI joints. Impression: Atrophic kidneys bilaterally. Enteritis. Diffuse urinary bladder wall thickening which may represent a cystitis. Clinical correlation. Small hiatal hernia. Heterogeneous uterus and bilateral adnexa. Suggestion of a bilobed left adnexal cyst measuring up to 5 centimeters as well as a suggestion of a right adnexal cyst measuring up to 1.7 centimeters. Correlation with pelvic ultrasound may be helpful if clinically indicated. Mixed lytic and sclerotic changes throughout the osseous structures which may represent chronic osteodystrophy in the setting of renal disease. Additional findings as above. If symptoms persists, consider correlation with a contrast-enhanced CT scan of the abdomen and pelvis. A preliminary report was generated at 7:43 p.m. on 02/16/[address] Ravinder Garrison from [employer].
== END 2018-02-16 22:07 | disposition home or self-care (01) ==
LOC: C.ER 13:20
DX: K52.9 Noninfective gastroenteritis and colitis, unspecified (principal); R74.8 Abnormal levels of other serum enzymes; I12.0 Hypertensive chronic kidney disease with stage 5 chronic kidney disease or end stage renal disease; N18.6 End stage renal disease; Z99.2 Dependence on renal dialysis; I50.9 Heart failure, unspecified
CPT/HCPCS: 74176; 80053; 82948; 83690; 84702; 85025; 96374; 96375; 96376; 99285; J2270; J2405

== ENCOUNTER 2018-04-10 17:45 | Inpatient (IN) | payer MEDICAID ==
[2018-04-10] MEDS ORDERED: Sodium Chloride 0.9% 1,000 ML IV ONE (17:59)
--- NOTE | 2018-04-10 18:04 | C.PDOC ---
History Of Present Illness 47 y/o female, with history of diabetes and previous surgery (), comes in to ED complaining of intermittent abdominal pain, vomiting, and diarrhea. Patient reports that vomiting and diarrhea are nobloody. He denies fever or chills. <Mukund Galvez V - Last Filed: 04/10/18 18:59> History Per: Patient History/Exam Limitations: no limitations Onset/Duration Of Symptoms: Days Current Symptoms Are (Timing): Still Present <Mukund Galvez V - Last Filed: 04/10/18 18:59> <Brittnee Campos - Last Filed: 04/10/18 20:01> Time Seen by Provider: 04/10/18 17:57 Chief Complaint (Nursing): Abdominal Pain Past Medical History Reviewed: Historical Data, Nursing Documentation, Vital Signs Vital Signs: Last Vital Signs Temp 98.6 F 04/10/18 17:53 Pulse 104 H 04/10/18 17:53 Resp 20 04/10/18 17:53 BP 133/93 H 04/10/18 17:53 Pulse Ox 97 04/10/18 17:53 - Medical History PMH: CHF, HTN, Pancreatitis, End Stage Renal Disease, Chronic Kidney Disease Denies: Crohn's Disease, Diverticulitis, Gastritis, Gall Bladder Disease - [facility] Procedures (10/10/17) Family History: States: No Known Family Hx - Social History Hx Alcohol Use: No Hx Substance Use: No - Immunization History Hx Tetanus Toxoid Vaccination: No Hx Influenza Vaccination: Yes Hx Pneumococcal Vaccination: No <Mukund Galvez V - Last Filed: 04/10/18 18:59> Vital Signs: Last Vital Signs Temp 98.6 F 04/10/18 17:53 Pulse 104 H 04/10/18 17:53 Resp 20 04/10/18 17:53 BP 133/93 H 04/10/18 17:53 Pulse Ox 97 04/10/18 19:00 - [facility] Procedures (10/10/17) <Brittnee Campos - Last Filed: 04/10/18 20:01> Review Of Systems Except As Marked, All Systems Reviewed And Found Negative. Constitutional: Negative for: Fever, Chills Gastrointestinal: Positive for: Vomiting, Abdominal Pain, Diarrhea <Mukund Galvez V - Last Filed: 04/10/18 18:59> Physical Exam - Physical Exam Appears: Non-toxic, No Acute Distress Skin: Warm, Dry Head: Atraumatic, Normacephalic Eye(s): bilateral: Normal Inspection Oral Mucosa: Moist Neck: Supple Cardiovascular: Rhythm Regular, No Murmur Respiratory: Normal Breath Sounds, No Rales, No Rhonchi, No Wheezing Gastrointestinal/Abdominal: Tenderness (diffuse abdominal tenderness), No Guarding, No Rebound Extremity: Bilateral: Atraumatic, Normal Color And Temperature, Normal ROM Neurological/Psych: Oriented x3, Normal Speech <Mukund Galvez V - Last Filed: 04/10/18 18:59> ED Course And Treatment - Laboratory Results Result Diagrams: 04/10/18 18:33 O2 Sat by Pulse Oximetry: 97 (RA) Pulse Ox Interpretation: Normal <Mukund Galvez V - Last Filed: 04/10/18 18:59> - Laboratory Results Result Diagrams: 04/10/18 18:33 04/10/18 18:33 Lab Results: Total Bilirubin 0.5 mg/dL (0.2-1.3) 04/10/18 18:33 AST 26 U/L (14-36) 04/10/18 18:33 ALT < 6 U/L (9-52) L D 04/10/18 18:33 Alkaline Phosphatase 567 U/L (38-126) H 04/10/18 18:33 Total Protein 8.7 g/dL (6.3-8.3) H 04/10/18 18:33 Albumin 4.8 g/dL (3.5-5.0) 04/10/18 18:33 Globulin 3.9 gm/dL (2.2-3.9) 04/10/18 18:33 Albumin/Globulin Ratio 1.2 (1.0-2.1) 04/10/18 18:33 Lipase 1333 U/L (23-300) H 04/10/18 18:33 <Brittnee Campos - Last Filed: 04/10/18 20:01> Progress - Re-Evaluation Re-evaluation Note: 04/10/18 19:00 S/O FROM DR HARRIS hx of ESRD on hemodialysis (MWF) via AV[facility] , last dialysis 04/09, chronic anemia, hyperphosphatemia, secondary hyperparathyroidism, hypertension and chronic pancreatitis. RECENT DC 01/13. [facility] PRIOR ER VISITS FOR CHRONIC ABD PAIN. PENDING CALLBACK PMD DR EPPS 04/10/18 19:57 D/W PMD, STATES IS AWAY AND TO ADMIT TO HOSP D/W DR SIERRA HAS NOT BEEN NOTIFIED BY DR GAN THAT CAN ADMIT FOR DR EPPS D/W DR JONES WILL ADMIT - Data Reviewed Data Reviewed: Lab, Diagnostic imaging, Old records <Brittnee Campos - Last Filed: 04/10/18 20:01> Medical Decision Making Medical Decision Making: Plan: --Abd/Pel CT --Labs --UA --Morphine 2 mg IVP --Pepcid 20 mg IVP --IV fluids 1L --Zofran 4 mg IVP <Mukund Galvez V - Last Filed: 04/10/18 18:59> Disposition - POA Present On Arrival: None <Mukund Galvez V - Last Filed: 04/10/18 18:59> Counseled Patient/Family Regarding: Studies Performed, Diagnosis - Disposition Disposition Time: 20:01 - POA Present On Arrival: None <Brittnee Campos - Last Filed: 04/10/18 20:01> - Disposition Disposition: HOSPITALIZED Condition: STABLE Forms: [email or web address] (Nepali) - Clinical Impression Clinical Impression: ESRD (end stage renal disease) on dialysis, Pancreatitis, Chronic abdominal pain - Scribe Statement The provider has reviewed the documentation as recorded by the Berto Booker Provider Attestation: All medical record entries made by the Ravinibjesus were at my direction and personally dictated by me. I have reviewed the chart and agree that the record accurately reflects my personal performance of the history, physical exam, medical decision making, and the department course for this patient. I have also personally directed, reviewed, and agree with the discharge instructions and disposition. <Mukund Galvez V - Last Filed: 04/10/18 18:59> Physician Patient Turnover Patient Signed Over To: Brittnee Campos Handoff Comments: CT, labs pending, anticipated d/c <Mukund Galvez V - Last Filed: 04/10/18 18:59>
[2018-04-10 18:38] LABS: BASO # 0.1 K/uL (0.0-0.2); BASO % 0.9 % (0.0-2.0); EOS # 0.1 K/uL (0.0-0.7); EOS % 0.9 % (0.0-4.0); HEMOGLOBIN 11.5 g/dL (11.0-16.0); LYMPH # 1.2 K/uL (1.0-4.3); LYMPH % 16.6 % (20.0-40.0); MEAN CELL VOLUME 80.6 fL (81.0-99.0); MEAN CORPUSCULAR HEMOGLOBIN 25.2 pg (27.0-31.0); MEAN CORPUSCULAR HGB CONC 31.3 g/dL (33.0-37.0); MEAN PLATELET VOLUME 8.1 fL (7.2-11.7); MONO # 0.3 K/uL (0.0-0.8); MONO % 4.4 % (0.0-10.0); NEUT # 5.5 K/uL (1.8-7.0); NEUT % 77.2 % (50.0-75.0); NRBC % 0.1 % (0.0-2.0); RBC 4.56 Mil/uL (3.80-5.20); RED CELL DISTRIBUTION WIDTH 20.7 % (11.5-14.5); WHITE BLOOD COUNT 7.1 K/uL (4.8-10.8)
[2018-04-10 18:57] LABS: BLOOD UREA NITROGEN 46 mg/dL (7-17); GFR NON-AFRICAN AMERICAN 7
[2018-04-10 18:58] LABS: ALBUMIN 4.8 g/dL (3.5-5.0); CALCIUM 9.1 mg/dl (8.6-10.4)
[2018-04-10 18:59] LABS: ALB/GLOB RATIO 1.2 (1.0-2.1); ALT/SGPT < 6 U/L (9-52); AST/SGOT 26 U/L (14-36); LIPASE 1333 U/L (23-300)
[2018-04-10] MEDS: (Novolin R) Insulin Human Regular 100 units/ml vial SC SCH (21:50)
[2018-04-10] MEDS ORDERED: Home Med 1 UNIT (Simvastatin [Simvastatin] 10 MG) PO SCH (22:00)
[2018-04-10] MEDS: Rosuvastatin Calcium 2.5 mg Tab PO SCH (22:09)
[2018-04-11] MEDS: (Novolin R) Insulin Human Regular 100 units/ml vial SC SCH ×4 (07:43→21:45)
--- NOTE | 2018-04-11 10:50 | PN ---
DATE: 04/11/2018 LOCATION: 368, bed B. SUBJECTIVE: This is a 47-year-old female, seen and examined initially for GI consultation on 04/10/2018 as requested by the admitting medical staff, reexamined again today with periods of abdominal pain but less than before with recently reported lipase of 1333 as per the time of the admission. The patient still has period of nausea with mild dyspepsia, but normal CBC with increased BUN 46, creatinine 6.1 due to her chronic renal disease with mildly elevated blood glucose level. Official report of the recently done CAT scan is still pending. PHYSICAL EXAMINATION: GENERAL: A 47-year-old female, awake, alert, oriented, complaining of abdominal pain but no reported actual complaint of chest pain. VITAL SIGNS: Afebrile with pulse of 84, respiratory rate of 20 to 22 with blood pressure 140/82. HEENT: Showed pale dry oral mucous membrane. Nonicteric sclerae. LUNGS: Few scattered crepitation. Decreased air entry at bases. HEART: Positive S1 and S2. ABDOMEN: Soft with generalized tenderness. No mass or organomegaly. No rebound tenderness or guarding. EXTREMITIES: Without significant clubbing, cyanosis or edema. NEUROLOGIC: No reported new neurological deficits, sensory or motor. IMPRESSION: 1. Recurrent acute pancreatitis, the possibility of hyperlipidemia induced was raised. 2. Re-exacerbation of peptic ulcer disease. 3. Known history of hypertension, congestive heart failure. 4. End-stage renal disease. 5. Poorly controlled diabetes mellitus. SUGGESTIONS: 1. Agree with your plan. 2. Keep n.p.o. for now until lipase and amylase level normal or near normal. 3. Lipid profile. 4. If the patient's pain persists, then upper endoscopy to be kept in mind, otherwise close observation to follow. 5. Further recommendation to follow and H2 blockers other than PPI IV treatment to start. Rosario Jaquez MD
[2018-04-11 11:05] LABS: HEMOGLOBIN 10.8 g/dL (11.0-16.0); MEAN CELL VOLUME 80.7 fL (81.0-99.0); MEAN CORPUSCULAR HEMOGLOBIN 25.4 pg (27.0-31.0); MEAN CORPUSCULAR HGB CONC 31.5 g/dL (33.0-37.0); MEAN PLATELET VOLUME 7.9 fL (7.2-11.7); RBC 4.25 Mil/uL (3.80-5.20); RED CELL DISTRIBUTION WIDTH 20.5 % (11.5-14.5); WHITE BLOOD COUNT 6.5 K/uL (4.8-10.8)
[2018-04-11 11:16] LABS: HDL CHOLESTEROL 86 mg/dL (30-70)
[2018-04-11 11:27] LABS: LDL CHOLESTEROL 58 mg/dL (0-129)
[2018-04-11 11:44] LABS: ALB/GLOB RATIO 1.4 (1.0-2.1); ALBUMIN 4.6 g/dL (3.5-5.0); CALCIUM 9.3 mg/dl (8.6-10.4)
--- NOTE | 2018-04-11 13:23 | CT ---
Date of service: 04/11/2018 PROCEDURE: CT Abdomen and pelvis HISTORY: Abdominal pain COMPARISON: Comparison made with prior CT scan abdomen pelvis 02/16/2018. TECHNIQUE: Contiguous axial images of the abdomen pelvis performed of without oral or intravenous contrast material. Additional 2D sagittal and coronal reformats generated. Sagittal reformats generated. Radiation dose: Total exam DLP = 588.81 mGy-cm. This CT exam was performed using one or more of the following dose reduction techniques: Automated exposure control, adjustment of the mA and/or kV according to patient size, and/or use of iterative reconstruction technique. FINDINGS: LOWER THORAX: Cardiomegaly. No significant pericardial effusion. Mild ground-glass opacities seen in the lower lobes consistent; findings could represent air trapping or possibly pneumonitis. Clinical correlation recommended. No focal consolidation. Minor linear areas of scarring seen in the right lung base. LIVER: Liver exhibits normal size and attenuation pattern without masses collections or calcifications. GALLBLADDER AND BILE DUCTS: Unremarkable. PANCREAS: Visualized portions of the pancreas appear grossly unremarkable without masses collections or calcifications. No significant pancreatic ductal dilatation. SPLEEN: Spleen exhibits normal size and attenuation pattern without mass collection or calcification. ADRENALS: Unremarkable. KIDNEYS AND URETERS: Kidneys are atrophic. Correlation with renal function tests recommended. No evidence of nephrolithiasis or hydronephrosis. BLADDER: Urinary bladder is incompletely distended though rather thick-walled in appearance more than 1 would expect from incomplete distention. Rule out cystitis versus other intrinsic/invasive wall lesion. No obvious intraluminal urinary bladder calculi. REPRODUCTIVE: Uterus appears unremarkable. There is a somewhat elliptical shaped low-attenuation 4.7 x 2.1 cm left focus left adnexa. This is of uncertain etiology however could represent a large adnexal cyst however hydrosalpinx or pyosalpinx not excluded. Clinical correlation is suggested. Pelvic ultrasound follow-up could be performed further evaluation. APPENDIX: Normal appendix BOWEL: Evaluation of the bowel is limited due to the lack of oral contrast material. Stomach is incompletely distended with marked wall thickening. Rule out gastritis versus other intrinsic/invasive wall lesion. Visualized loops of small bowel exhibit relatively normal contour and caliber. No evidence of acute mechanical small bowel obstruction. There is a moderate amount of stool seen in the cecum and ascending colon and to a lesser degree transverse colon consistent with fecal retention/constipation.. PERITONEUM: Unremarkable. No fluid collection. No free air. LYMPH NODES: Unremarkable. No enlarged lymph nodes. VASCULATURE: Unremarkable. No aortic aneurysm. No aortic atherosclerotic calcification or mural plaque present. BONES: The bones exhibit sclerotic changes with what appear to represent chronic appearing endplate erosive changes. Findings may represent sequela of renal osteodystrophy however clinical correlation recommended. OTHER FINDINGS: None. IMPRESSION: Atrophic kidneys; clinical correlation with renal function tests recommended. Urinary bladder exhibits wall thickening; findings could be due to in part due to incomplete distention however cystitis or other intrinsic/invasive wall lesion not excluded. Elliptical shaped low-attenuation focus in the left adnexal region of uncertain etiology. Rule out large left adnexal cyst however hydrosalpinx or possibly a pyosalpinx not excluded. Clinical correlation with follow-up of pelvic ultrasound. Additional findings compatible with renal osteodystrophy.
--- NOTE | 2018-04-11 18:47 | PN ---
DATE: 04/11/2018 SUBJECTIVE: The patient is still experiencing abdominal discomfort. PHYSICAL EXAMINATION: VITAL SIGNS: Blood pressure 138/87, heart rate 82, temperature 97.7, and respirations 20. HEENT: Normocephalic. CHEST: Clear. HEART: S1 and S2 regular. ABDOMEN: Epigastric tenderness. EXTREMITIES: No edema. LABORATORY DATA: Today's SMA-7: Sodium 136, potassium 4.4, chloride 95, CO2 30, glucose 84, BUN 15, and creatinine 7.8. Amylase 2.6, and lipase 303. Both are elevated. Today's hemoglobin and hematocrit 10.8 and 34.3. White count and platelet count are within normal limits. Abdomen and pelvis CT scan consistent with atrophic kidney and thickened urinary bladder wall. Elliptical of the left adrenal region of uncertain etiology, rule out adnexal cyst. ASSESSMENT: 1. Abdominal pain, consider underlying pancreatitis. 2. End-stage renal disease, on hemodialysis. 3. Anemia. 4. History of chronic pancreatitis. PLAN: Continue current Coreg 25 mg twice a day, Crestor 2.5 mg once a day, Norvasc at 10 mg once a day, Protonix 40 mg intravenously once a day, Zofran 4 mg intravenously every 6 hours p.r.n. The patient will be evaluated by water regulator and valve repairer Dr. Cash and our dial maker Dr. Garcia. Wood Recinos MD
[2018-04-11] MEDS: Rosuvastatin Calcium 2.5 mg Tab PO SCH (21:44)
--- NOTE | 2018-04-12 07:25 | CON ---
DATE: 04/10/[address] Jaquez to Dr. Phuc Young. I was called for GI consultation by the admitting medical team. The patient is seen and fully examined on 04/10/[address] Young. The entire chart is reviewed including but not limited to most recent lab and radiology study results, current and the previous medication list, current and the previous medical events, allergy to medication list as well as all the available current and the previous medical records. Case discussed at length with the staff as well as all the consultants at the time of my physical examination and GI consultation on 04/10/2018. HISTORY OF PRESENT ILLNESS: This is a 47-year-old female who was admitted to the hospital due to severe but intermittent abdominal pain with recurrent episodes of nausea, vomiting, dyspepsia and diarrhea, but no reported active bleeding. No chills, fever, chest pain, palpitation, or significant shortness of breath but generalized weakness and malaise with loss of appetite. Initial blood workup post admission showed hemoglobin of 11.5, hematocrit 36.7 with normal platelet count and white blood cells with blood glucose level 138, BUN of 46, creatinine 6.1 with increased alkaline phosphatase of 567 with normal total bilirubin, albumin, and total protein. Lipase was 1333. PAST MEDICAL HISTORY: Including but not limited to, 1. End-stage renal disease. 2. Hypertension with congestive heart failure. 3. Recurrent pancreatitis of unclear etiology. 4. Peptic ulcer disease. FAMILY HISTORY: Noncontributory. SOCIAL HISTORY: Denied any recent history of cigarette smoking or alcohol intake. CURRENT MEDICATIONS: Post-admission medication lists were reviewed. ALLERGIES TO MEDICATIONS: UNCLEAR. PHYSICAL EXAMINATION: GENERAL: A 47-year-old female, awake, alert, oriented. VITAL SIGNS: Afebrile with pulse of 100, respiratory rate 20 to 22, blood pressure 128/90. HEENT: Shows pale dry oral mucoid membrane. Nonicteric sclerae. LYMPH NODES: No lymphadenitis or lymphadenopathy. LUNGS: Few scattered mild crepitation. Breathing sounds are present bilaterally. HEART: Positive S1 and S2 with increased rate. ABDOMEN: Soft with generalized tenderness but mainly in the midepigastric and midabdominal line as well as right upper quadrant area. No mass or organomegaly. No rebound tenderness or guarding. Bowel sounds are present. RECTAL: The patient refused. EXTREMITIES: Slight lower extremity edematous changes. No clubbing or cyanosis. NEUROLOGIC: No reported new neurological deficits, sensory, or motor. No reported focal deficits, new. IMPRESSION: 1. Acute pancreatitis on top of chronic pancreatitis of unclear etiology, to rule out hyperlipidemia induced versus medication induced. 2. The possibility of biliary pancreatitis was raised also, it appeared to be much less likely. 3. Re-exacerbation of peptic ulcer disease. 4. Known history of mainly hypertension, congestive heart failure, end-stage renal disease. SUGGESTIONS: 1. Agree with your plan. 2. Keep n.p.o. for now until serum lipase, amylase level normal or near normal. 3. No heparin or hemodialysis. 4. Cancer markers including CA 19-9 and CEA as well as CA-125. 5. Rehydration in coordination with the Nephrology applications consultant due to the patient's chronic renal failure. 6. H2 blockers IV. 7. Further recommendation to follow. However, the patient may need also abdominal ultrasound with attention to the biliary tree and pancreas as well as upper endoscopy if her symptoms persist, otherwise, close observation to follow. Thank you for letting me participate in your patient's case management. We will follow up closely with you. Rosario Jaquez MD
[2018-04-12] MEDS: (Novolin R) Insulin Human Regular 100 units/ml vial SC SCH ×4 (07:49→21:43)
--- NOTE | 2018-04-12 14:04 | PN ---
DATE: 04/12/2018 LOCATION: 365, bed B SUBJECTIVE: This is a 47-year-old female seen and examined in rounds today without any significant clinical changes or reported active bleeding, seen by the insurance consultant, Dr. Recinos, with intermittent period of abdominal pain, nausea with dyspepsia. The entire chart is reviewed including but not limited to the most recent lab results, and today's blood glucose level is 113 with subsequent decrease of lipase and amylase level as per yesterday of amylase 206, lipase 330. PHYSICAL EXAMINATION: GENERAL: A 47-year-old female, awake, alert, oriented, afebrile. VITAL SIGNS: Pulse of 70, respiratory rate 20-22, blood pressure 130/80. HEENT: Showed pale dry oral mucous membrane. Nonicteric sclerae. LUNGS: Few scattered crepitation. Decreased air entry at bases. HEART: Positive S1 and S2. ABDOMEN: Soft with mild generalized tenderness. No mass or organomegaly. EXTREMITIES: Without edema, clubbing or cyanosis. No reported new neurological deficits. IMPRESSION: 1. Acute pancreatitis on top of chronic pancreatitis, the possibility of hyperlipidemia induced was raised. 2. Peptic ulcer disease. 3. Known history of hypertension, congestive heart failure. 4. Poorly controlled diabetes mellitus. 5. End-stage renal disease. SUGGESTIONS: 1. Continue current management. 2. H2 blockers IV with Reglan IV. 3. Nephrology evaluation. 4. Endoscopic evaluation of the GI tract if the patient's symptoms persist, otherwise close observation and medical treatment to follow. Rosario Jaquez MD
[2018-04-12] MEDS: Rosuvastatin Calcium 2.5 mg Tab PO SCH (21:52)
--- NOTE | 2018-04-12 23:46 | CP.PCM.CON ---
History of Present Illness - History of Present Illness History of Present Illness: Reason For Consultation: Uncontrolled HTN Patient denies chest pain and dyspnea Review of Systems - Review of Systems Systems not reviewed;Unavailable: Acuity of Condition - Constitutional Constitutional: Fatigue - EENT Eyes: As Per HPI Ears: As Per HPI Nose/Mouth/Throat: As Per HPI - Breasts Breasts: As Per HPI - Cardiovascular Cardiovascular: As Per HPI - Respiratory Respiratory: As Per HPI - Gastrointestinal Gastrointestinal: Abdominal Pain Additional comments: has ilieus - Genitourinary Additional comments: ESRD on dialysis - Reproductive: Female Reproductive:Female: As Per HPI - Menstruation Menstruation: As Per HPI - Musculoskeletal Musculoskeletal: As Per HPI - Integumentary Integumentary: As Per HPI - Neurological Neurological: As Per HPI - Psychiatric Psychiatric: As Per HPI - Endocrine Endocrine: As Per HPI - Hematologic/Lymphatic Hematologic: As Per HPI Physical Exam - Constitutional Appears: In Acute Distress - Head Exam Head Exam: ATRAUMATIC - Eye Exam Eye Exam: Normal appearance Pupil Exam: NORMAL ACCOMODATION - ENT Exam ENT Exam: Normal Exam - Neck Exam Neck exam: Positive for: Full Rom - Respiratory Exam Respiratory Exam: Clear to Auscultation Bilateral - Cardiovascular Exam Cardiovascular Exam: REGULAR RHYTHM - GI/Abdominal Exam GI & Abdominal Exam: Distended, Tenderness - Rectal Exam Rectal Exam: NORMAL INSPECTION - Extremities Exam Extremities exam: Positive for: normal inspection - Back Exam Back exam: NORMAL INSPECTION - Neurological Exam Neurological exam: Normal Gait - Psychiatric Exam Psychiatric exam: Normal Affect - Skin Skin Exam: Dry A/P: Uncontrolled HTN CRF on HD Will monitor Check ECHO Past Patient History - Infectious Disease Hx of Infectious Diseases: None - Past Medical History & Family History Past Medical History?: Yes - Past Social History Smoking Status: Never Smoked - CARDIAC Hx Congestive Heart Failure: Yes Hx Hypertension: Yes - PULMONARY Hx Respiratory Disorders: No - NEUROLOGICAL Hx Neurological Disorder: No - HEENT Hx HEENT Problems: No - RENAL Date of Last Dialysis Treatment: 04/12/18 - ENDOCRINE/METABOLIC Hx Endocrine Disorders: Yes Hx Diabetes Mellitus Type 2: Yes - HEMATOLOGICAL/ONCOLOGICAL Hx Blood Disorders: No Hx Cirrhosis: No Hx Hepatitis A: No Hx Hepatitis B: No Hx Hepatitis C: No - INTEGUMENTARY Hx Dermatological Problems: No - MUSCULOSKELETAL/RHEUMATOLOGICAL Hx Falls: No - GASTROINTESTINAL Hx Crohn's Disease: No Hx Diverticulitis: No Hx Gall Bladder Disease: No Hx Gastritis: No Hx Pancreatitis: Yes - GENITOURINARY/GYNECOLOGICAL Hx Genitourinary Disorders: No - PSYCHIATRIC Hx Substance Use: No - SURGICAL HISTORY Hx Surgeries: Yes Hx Section: Yes (X2) Hx Vascular Access Device: Yes (RIGHT AV SHUNT 5 YEARS AGO) - ANESTHESIA Hx Anesthesia: Yes Hx Anesthesia Reactions: No Hx Malignant Hyperthermia: No Meds Allergies/Adverse Reactions: Allergies Allergy/AdvReac Type Severity Reaction Status Date / Time No Known Allergies Allergy Verified 01/16/18 23:37 - Medications Medications: Current Medications Amlodipine Besylate (Norvasc) 10 mg PO DAILY [facility] Last Admin: 04/12/18 09:41 Dose: Not Given Carvedilol (Coreg) 25 mg PO Q12H [facility] Last Admin: 04/12/18 21:54 Dose: 25 mg Cinacalcet (Sensipar) 30 mg PO DAILY [facility] Last Admin: 04/12/18 09:40 Dose: 30 mg Heparin Sodium (Porcine) (Heparin) 5,000 units SC Q8 [facility] Last Admin: 04/12/18 21:47 Dose: Not Given Insulin Human Regular (Novolin R) 0 unit SC ACHS [facility]; Protocol Last Admin: 04/12/18 21:43 Dose: Not Given Morphine Sulfate (Morphine) 2 mg IVP Q4 PRN PRN Reason: Pain, moderate (4-7) Last Admin: 04/12/18 21:53 Dose: 2 mg Ondansetron HCl (Zofran Inj) 4 mg IVP Q6 PRN PRN Reason: Nausea/Vomiting Last Admin: 04/12/18 19:28 Dose: 4 mg Pantoprazole Sodium (Protonix Inj) 40 mg IVP DAILY [facility] Last Admin: 04/12/18 09:41 Dose: 40 mg Rosuvastatin Calcium (Crestor) 2.5 mg PO HS [facility] Last Admin: 04/12/18 21:52 Dose: 2.5 mg Sevelamer Carbonate (Renvela) 800 mg PO TIDCC [facility] Vitamin B Complex/Folic Acid (Berroca) 1 tab PO DAILY [facility] Last Admin: 04/12/18 09:41 Dose: 1 tab Results - Vital Signs Recent Vital Signs: Last Vital Signs Temp 97.5 F L 04/12/18 17:35 Pulse 78 04/12/18 17:35 Resp 16 03/04/19 17:35 BP 159/99 H 03/04/19 21:54 Pulse Ox 97 04/12/18 17:35 - Labs Result Diagrams: 04/11/18 11:00 04/11/18 11:00 Labs: Laboratory Results - last 24 hr 04/12/18 04/12/18 04/12/18 07:05 10:59 16:11 POC Glucose (mg/dL) 135 H 113 H 143 H 04/12/18 21:21 POC Glucose (mg/dL) 135 H
[2018-04-13] MEDS: (Novolin R) Insulin Human Regular 100 units/ml vial SC SCH ×4 (07:25→21:47)
--- NOTE | 2018-04-13 07:38 | CP.PCM.PN ---
Subjective - Date & Time of Evaluation Date of Evaluation: 04/12/18 Time of Evaluation: 20:20 - Subjective Subjective: dictated Objective - Vital Signs/Intake and Output Vital Signs (last 24 hours): Temp Pulse Resp BP Pulse Ox 98.7 F 82 20 146/90 98 04/13/18 01:00 04/13/18 01:00 04/13/18 01:00 04/13/18 01:00 04/13/18 01:00 Intake and Output: 04/13/18 04/13/18 06:59 18:59 Intake Total 400 Balance 400 - Medications Medications: Current Medications Amlodipine Besylate (Norvasc) 10 mg PO DAILY [facility] Last Admin: 04/12/18 09:41 Dose: Not Given Carvedilol (Coreg) 25 mg PO Q12H [facility] Last Admin: 04/12/18 21:54 Dose: 25 mg Cinacalcet (Sensipar) 30 mg PO DAILY [facility] Last Admin: 04/12/18 09:40 Dose: 30 mg Heparin Sodium (Porcine) (Heparin) 5,000 units SC Q8 [facility] Last Admin: 04/13/18 05:48 Dose: Not Given Insulin Human Regular (Novolin R) 0 unit SC ACHS [facility]; Protocol Last Admin: 04/13/18 07:25 Dose: Not Given Morphine Sulfate (Morphine) 2 mg IVP Q4 PRN PRN Reason: Pain, moderate (4-7) Last Admin: 04/13/18 03:03 Dose: 2 mg Ondansetron HCl (Zofran Inj) 4 mg IVP Q6 PRN PRN Reason: Nausea/Vomiting Last Admin: 04/12/18 19:28 Dose: 4 mg Pantoprazole Sodium (Protonix Inj) 40 mg IVP DAILY [facility] Last Admin: 04/12/18 09:41 Dose: 40 mg Rosuvastatin Calcium (Crestor) 2.5 mg PO HS [facility] Last Admin: 04/12/18 21:52 Dose: 2.5 mg Sevelamer Carbonate (Renvela) 800 mg PO TIDCC [facility] Vitamin B Complex/Folic Acid (Berroca) 1 tab PO DAILY [facility] Last Admin: 04/12/18 09:41 Dose: 1 tab - Labs Labs: 04/11/18 11:00 04/11/18 11:00
[2018-04-13] MEDS ORDERED: Vitamin B Complex/Vitamin C Tab PO SCH (10:15)
--- NOTE | 2018-04-13 10:44 | CP.PCM.CON ---
History of Present Illness - History of Present Illness History of Present Illness: Nephrology Consultation Note: Assessment: Stable acute on chronic pancreatitis Hypertensive Chronic Kidney Disease (I12.0) End stage renal disease (N18.6) dependence on hemodialysis (Z99.2) (MWF) via AVF Anemia (D64.9), Hyperphosphatemia (E83.39), Secondary Hyperparathyroidism (E21.1), HTN (I12.0) Plan: Will plan for HD MWF as ordered. Continue with Nephrovite 1 tab/day. PRBC as needed for anemia. not on DARINEL with dialysis as last Hb 10.8 Continue with phos binders, check phos level continue with sensipar BP control with meds as ordered. Patient not on RAAS jhony may add as losartan if needed for high BP Glycemic control, Dialysis consistent diet Further work up/management as per primary team Dose meds/antibiotics (if needed) for ESRD status. Avoid fleets enema/magnesium based laxatives. cardiology and GI following Thanks for allowing me to participate in care of your patient. Will follow patient with you. Please call if any Qs. Dr Ananda Escalona Office: [phone] Chief Complaint; pain abdomen HPI: Pt is a 47 F with hx of ESRD on hemodialysis (MWF) via AVF ,chronic anemia , hyperphosphatemia, secondary hyperparathyroidism, hypertension and chronic pancreatitis presented with complaints of pain abdomen Renal consult requested for ESRD management. pt with recurrent and multiple admissions for same says pain abdomen better ROS: Cardiovascular: No chest pain. Pulmonary: No shortness of breath Gastrointestinal: improved abdominal pain c/o nausea. c/o vomiting. Genitourinary: No pain while urinating. Denies blood in urine. All other negative except as mentioned in HPI Physical Examination: General Appearance: Comfortable, in no acute respiratory distress, somewhat unco-operative . Vitals reviewed and noted as below Head; Atraumatic, normocephalic ENT: no ulcers no thrush. Tongue is midline. Oropharynx: no rash or ulcers. EYES: Pupils are equal, round and reactive to light accommodation. Eye muscles and extraocular movement intact. Sclera is anicteric. Neck; supple no lymphadenopathy, no thyromegaly or bruit Lungs: Normal respiratory rate/effort. Breath sounds bilateral equal and clear Heart: Normal rate. s1s2 normal. No rub or gallop. Extremities: no edema. No varicose veins Neurological: Patient is alert, awake and oriented to person, place and time. No focal deficit. Strength bilateral appropriate and equal Skin: Warm and dry. Normal turgor. No rash. Palpitation: Normal elasticity for age Abdomen: Abdomen is soft. Bowel sounds +. There is mild epigastric abdominal tenderness, no guarding/rigidity or organomegaly Psych: normal insight and flat affect/mood MSK: no joint tenderness or swelling. Digits and nails normal, no deformity : kidney or bladder not palpable Access: AVF Labs/imaging reviewed. Past medical history, past surgical history, family history, social history, allergy reviewed and noted as below Family Hx: no hx of CKD. Non contributory Past Patient History - Infectious Disease Hx of Infectious Diseases: None - Past Medical History & Family History Past Medical History?: Yes - Past Social History Smoking Status: Never Smoked - CARDIAC Hx Congestive Heart Failure: Yes Hx Hypertension: Yes - PULMONARY Hx Respiratory Disorders: No - NEUROLOGICAL Hx Neurological Disorder: No - HEENT Hx HEENT Problems: No - RENAL Date of Last Dialysis Treatment: 04/12/18 - ENDOCRINE/METABOLIC Hx Endocrine Disorders: Yes Hx Diabetes Mellitus Type 2: Yes - HEMATOLOGICAL/ONCOLOGICAL Hx Blood Disorders: No Hx Cirrhosis: No Hx Hepatitis A: No Hx Hepatitis B: No Hx Hepatitis C: No - INTEGUMENTARY Hx Dermatological Problems: No - MUSCULOSKELETAL/RHEUMATOLOGICAL Hx Falls: No - GASTROINTESTINAL Hx Crohn's Disease: No Hx Diverticulitis: No Hx Gall Bladder Disease: No Hx Gastritis: No Hx Pancreatitis: Yes - GENITOURINARY/GYNECOLOGICAL Hx Genitourinary Disorders: No - PSYCHIATRIC Hx Substance Use: No - SURGICAL HISTORY Hx Surgeries: Yes Hx Section: Yes (X2) Hx Vascular Access Device: Yes (RIGHT AV SHUNT 5 YEARS AGO) - ANESTHESIA Hx Anesthesia: Yes Hx Anesthesia Reactions: No Hx Malignant Hyperthermia: No Meds Allergies/Adverse Reactions: Allergies Allergy/AdvReac Type Severity Reaction Status Date / Time No Known Allergies Allergy Verified 01/16/18 23:37 - Medications Medications: Current Medications Amlodipine Besylate (Norvasc) 10 mg PO DAILY [facility] Last Admin: 04/13/18 10:11 Dose: 10 mg Carvedilol (Coreg) 25 mg PO Q12H [facility] Last Admin: 03/05/19 10:11 Dose: 25 mg Cinacalcet (Sensipar) 30 mg PO DAILY [facility] Last Admin: 04/13/18 10:11 Dose: 30 mg Heparin Sodium (Porcine) (Heparin) 5,000 units SC Q8 [facility] Last Admin: 04/13/18 05:48 Dose: Not Given Insulin Human Regular (Novolin R) 0 unit SC ACHS [facility]; Protocol Last Admin: 04/13/18 07:25 Dose: Not Given Morphine Sulfate (Morphine) 2 mg IVP Q4 PRN PRN Reason: Pain, moderate (4-7) Last Admin: 04/13/18 07:59 Dose: 2 mg Ondansetron HCl (Zofran Inj) 4 mg IVP Q6 PRN PRN Reason: Nausea/Vomiting Last Admin: 04/12/18 19:28 Dose: 4 mg Pantoprazole Sodium (Protonix Inj) 40 mg IVP DAILY [facility] Last Admin: 04/13/18 10:11 Dose: 40 mg Rosuvastatin Calcium (Crestor) 2.5 mg PO HS [facility] Last Admin: 04/12/18 21:52 Dose: 2.5 mg Sevelamer Carbonate (Renvela) 800 mg PO TIDCC [facility] Last Admin: 04/13/18 07:39 Dose: 800 mg Vitamin B Complex/Vit C/Folic Acid (Nephro-Divya) 1 tab PO DAILY [facility] Results - Vital Signs Recent Vital Signs: Last Vital Signs Temp 98.1 F 04/13/18 07:00 Pulse 71 04/13/18 07:00 Resp 20 04/13/18 07:00 BP 144/84 04/13/18 10:11 Pulse Ox 96 04/13/18 07:00 - Labs Result Diagrams: 04/11/18 11:00 04/11/18 11:00 Labs: Laboratory Results - last 24 hr 04/12/18 04/12/18 04/12/18 10:59 16:11 21:21 POC Glucose (mg/dL) 113 H 143 H 135 H 04/13/18 07:06 POC Glucose (mg/dL) 92
--- NOTE | 2018-04-13 15:17 | US ---
Date of service: 04/13/2018 HISTORY: cyst COMPARISON: CT abdomen and pelvis without contrast performed 04/11/18 TECHNIQUE: Transabdominal pelvic ultrasound. Patient declined transvaginal pelvic ultrasound. FINDINGS: UTERUS: Measures 7.6 x 4.0 x 5.8 cm. Anteverted. ENDOMETRIUM: Measures 7 mm in diameter. CERVIX: No cervical abnormality identified. RIGHT OVARY: Not visualized. LEFT OVARY: Measures 3.8 x 3.1 x 4.1 cm. Blood flow is demonstrated. 2.3 x 2.3 x 1.9 cm probable cyst. FREE FLUID: No significant free fluid noted. OTHER FINDINGS: None. IMPRESSION: Limited study. The right ovary is not visualized. Patient declined transvaginal pelvic ultrasound. 2.3 x 2.3 x 1.9 cm probable left ovarian cyst.
--- NOTE | 2018-04-13 19:02 | PN ---
DATE: 04/13/2018 LOCATION: 368, bed B. SUBJECTIVE: This is a 47-year-old female, seen and examined in rounds with her current episode of nausea and vomiting, dyspepsia and recurrent abdominal pain. The entire chart is reviewed including some of the patient's lab results and today's blood glucose level reported to be 90; however, the patient is still with low hemoglobin and hematocrit with increased BUN and the creatinine, but subsequent improvement of the lipase to 303, amylase 206. PHYSICAL EXAMINATION: GENERAL: A 47-year-old female, awake, alert, and oriented. VITAL SIGNS: Afebrile, pulse is 74, respiratory rate 20-22, blood pressure of 140/82. HEENT: Showed pale dry oral mucous membrane. Nonicteric sclerae. LUNGS: Few scattered crepitation. Decreased air entry at bases. HEART: Positive S1 and S2. ABDOMEN: Soft, bowel sounds are present with generalized tenderness. No mass or organomegaly. No rebound tenderness or guarding. EXTREMITIES: Without significant clubbing, cyanosis or edema. NEUROLOGIC: No reported new neurological deficits,sensory, or motor. IMPRESSION: 1. Acute pancreatitis. 2. Re-exacerbation of peptic ulcer disease. 3. Renal insufficiency. 4. History of hypertension, congestive heart failure, poorly controlled diabetes mellitus, end-stage renal disease. SUGGESTION: 1. Continue current management. 2. Reglan IV. 3. The patient is for upper endoscopy at a.m. Rosario Jaquez MD
[2018-04-13] MEDS: Rosuvastatin Calcium 2.5 mg Tab PO SCH (21:48)
--- NOTE | 2018-04-13 22:26 | CP.PCM.PN ---
Subjective - Date & Time of Evaluation Date of Evaluation: 04/13/18 Time of Evaluation: 07:20 - Subjective Subjective: dictated Objective - Vital Signs/Intake and Output Vital Signs (last 24 hours): Temp Pulse Resp BP Pulse Ox 97.9 F 73 20 140/70 98 04/13/18 16:49 04/13/18 16:49 04/13/18 16:49 04/13/18 21:46 04/13/18 16:49 Intake and Output: 04/13/18 04/14/18 18:59 06:59 Intake Total 350 Balance 350 - Medications Medications: Current Medications Amlodipine Besylate (Norvasc) 10 mg PO DAILY [facility] Last Admin: 04/13/18 10:11 Dose: 10 mg Carvedilol (Coreg) 25 mg PO Q12H [facility] Last Admin: 04/13/18 21:46 Dose: 25 mg Cinacalcet (Sensipar) 30 mg PO DAILY [facility] Last Admin: 04/13/18 10:11 Dose: 30 mg Heparin Sodium (Porcine) (Heparin) 5,000 units SC Q8 [facility] Last Admin: 04/13/18 21:46 Dose: Not Given Insulin Human Regular (Novolin R) 0 unit SC ACHS [facility]; Protocol Last Admin: 04/13/18 21:47 Dose: Not Given Losartan Potassium (Cozaar) 25 mg PO DAILY [facility] Metoclopramide HCl (Reglan) 5 mg PO 0600,1130,1630,2200 [facility] Last Admin: 04/13/18 21:52 Dose: 5 mg Metoclopramide HCl (Reglan) 5 mg IVP Q6H [facility] Last Admin: 04/13/18 20:00 Dose: Not Given Morphine Sulfate (Morphine) 2 mg IVP Q4 PRN PRN Reason: Pain, moderate (4-7) Last Admin: 04/13/18 22:04 Dose: 2 mg Ondansetron HCl (Zofran Inj) 4 mg IVP Q6 PRN PRN Reason: Nausea/Vomiting Last Admin: 04/12/18 19:28 Dose: 4 mg Pantoprazole Sodium (Protonix Inj) 40 mg IVP DAILY [facility] Last Admin: 04/13/18 10:11 Dose: 40 mg Rosuvastatin Calcium (Crestor) 2.5 mg PO HS [facility] Last Admin: 04/13/18 21:48 Dose: 2.5 mg Sevelamer Carbonate (Renvela) 800 mg PO TIDCC [facility] Last Admin: 04/13/18 17:30 Dose: 800 mg Vitamin B Complex/Vit C/Folic Acid (Nephro-Divya) 1 tab PO DAILY [facility] - Labs Labs: 04/11/18 11:00 04/11/18 11:00
[2018-04-13] MEDS ORDERED: DiphenhydrAMINE 12.5 mg/5 ml LIQ UD (5 ml) PO STA (23:33)
--- NOTE | 2018-04-14 00:13 | CP.PCM.PN ---
Subjective - Date & Time of Evaluation Date of Evaluation: 04/13/18 Time of Evaluation: 16:20 - Subjective Subjective: Patient seen and evaluated Comfortable Review of Systems - Review of Systems Systems not reviewed;Unavailable: Acuity of Condition - Constitutional Constitutional: Fatigue - EENT Eyes: As Per HPI Ears: As Per HPI Nose/Mouth/Throat: As Per HPI - Breasts Breasts: As Per HPI - Cardiovascular Cardiovascular: As Per HPI - Respiratory Respiratory: As Per HPI - Gastrointestinal Gastrointestinal: Abdominal Pain Additional comments: has ilieus - Genitourinary Additional comments: ESRD on dialysis - Reproductive: Female Reproductive:Female: As Per HPI - Menstruation Menstruation: As Per HPI - Musculoskeletal Musculoskeletal: As Per HPI - Integumentary Integumentary: As Per HPI - Neurological Neurological: As Per HPI - Psychiatric Psychiatric: As Per HPI - Endocrine Endocrine: As Per HPI - Hematologic/Lymphatic Hematologic: As Per HPI Physical Exam - Constitutional Appears: In Acute Distress - Head Exam Head Exam: ATRAUMATIC - Eye Exam Eye Exam: Normal appearance Pupil Exam: NORMAL ACCOMODATION - ENT Exam ENT Exam: Normal Exam - Neck Exam Neck exam: Positive for: Full Rom - Respiratory Exam Respiratory Exam: Clear to Auscultation Bilateral - Cardiovascular Exam Cardiovascular Exam: REGULAR RHYTHM - GI/Abdominal Exam GI & Abdominal Exam: Distended, Tenderness - Rectal Exam Rectal Exam: NORMAL INSPECTION - Extremities Exam Extremities exam: Positive for: normal inspection - Back Exam Back exam: NORMAL INSPECTION - Neurological Exam Neurological exam: Normal Gait - Psychiatric Exam Psychiatric exam: Normal Affect - Skin Skin Exam: Dry A/P: Uncontrolled HTN better today CRF on HD Objective - Vital Signs/Intake and Output Vital Signs (last 24 hours): Temp Pulse Resp BP Pulse Ox 98.2 F 82 20 140/80 95 04/13/18 23:49 04/13/18 23:49 04/13/18 23:49 04/13/18 23:49 04/13/18 23:49 Intake and Output: 04/13/18 04/14/18 18:59 06:59 Intake Total 350 Balance 350 - Medications Medications: Current Medications Amlodipine Besylate (Norvasc) 10 mg PO DAILY [facility] Last Admin: 04/13/18 10:11 Dose: 10 mg Carvedilol (Coreg) 25 mg PO Q12H [facility] Last Admin: 04/13/18 21:46 Dose: 25 mg Cinacalcet (Sensipar) 30 mg PO DAILY [facility] Last Admin: 04/13/18 10:11 Dose: 30 mg Heparin Sodium (Porcine) (Heparin) 5,000 units SC Q8 [facility] Last Admin: 04/13/18 21:46 Dose: Not Given Insulin Human Regular (Novolin R) 0 unit SC ACHS [facility]; Protocol Last Admin: 04/13/18 21:47 Dose: Not Given Losartan Potassium (Cozaar) 25 mg PO DAILY [facility] Metoclopramide HCl (Reglan) 5 mg PO 0600,1130,1630,2200 [facility] Last Admin: 04/13/18 21:52 Dose: 5 mg Metoclopramide HCl (Reglan) 5 mg IVP Q6H [facility] Last Admin: 04/13/18 20:00 Dose: Not Given Morphine Sulfate (Morphine) 2 mg IVP Q4 PRN PRN Reason: Pain, moderate (4-7) Last Admin: 04/13/18 22:04 Dose: 2 mg Ondansetron HCl (Zofran Inj) 4 mg IVP Q6 PRN PRN Reason: Nausea/Vomiting Last Admin: 04/12/18 19:28 Dose: 4 mg Pantoprazole Sodium (Protonix Inj) 40 mg IVP DAILY [facility] Last Admin: 04/13/18 10:11 Dose: 40 mg Rosuvastatin Calcium (Crestor) 2.5 mg PO HS [facility] Last Admin: 04/13/18 21:48 Dose: 2.5 mg Sevelamer Carbonate (Renvela) 800 mg PO TIDCC [facility] Last Admin: 04/13/18 17:30 Dose: 800 mg Vitamin B Complex/Vit C/Folic Acid (Nephro-Divya) 1 tab PO DAILY [facility] - Labs Labs: 04/11/18 11:00 04/11/18 11:00
--- NOTE | 2018-04-14 03:10 | PN ---
DATE: 04/13/2018 SUBJECTIVE: The patient has persistent upper abdominal pain, nausea and she had one episode of vomiting this morning. The patient is afebrile. No fever. She is status post dialysis. No shortness of breath. Blood sugar is relatively better controlled. No chest pain. No cough. PHYSICAL EXAMINATION: VITAL SIGNS: Blood pressure 134/75, pulse 73, respiratory rate 20, temperature 97.9. LUNGS: Clear. CARDIOVASCULAR: S1 and S2, regular. ABDOMEN: Epigastric tenderness. ASSESSMENT: 1. Benign ovarian cyst. 2. Pancreatitis. 3. Hypertension. 4. Chronic kidney disease, on hemodialysis. PLAN: Continue hemodialysis. Proceed diet. GI evaluation. Monitor patient. Phuc Young MD
[2018-04-14] MEDS: (Novolin R) Insulin Human Regular 100 units/ml vial SC SCH ×4 (07:48→21:41)
[2018-04-14] MEDS: Multivitamin Vitamin B Complex (Nephro-Vite) Tab PO SCH (09:08)
[2018-04-14 09:53] LABS: HEMOGLOBIN 11.1 g/dL (11.0-16.0); MEAN CELL VOLUME 80.7 fL (81.0-99.0); MEAN CORPUSCULAR HEMOGLOBIN 25.7 pg (27.0-31.0); MEAN CORPUSCULAR HGB CONC 31.9 g/dL (33.0-37.0); MEAN PLATELET VOLUME 7.8 fL (7.2-11.7); RBC 4.32 Mil/uL (3.80-5.20); RED CELL DISTRIBUTION WIDTH 20.5 % (11.5-14.5); WHITE BLOOD COUNT 8.1 K/uL (4.8-10.8)
[2018-04-14 10:05] LABS: ALB/GLOB RATIO 1.3 (1.0-2.1); ALBUMIN 4.5 g/dL (3.5-5.0); ALT/SGPT < 6 U/L (9-52); AST/SGOT 19 U/L (14-36); BLOOD UREA NITROGEN 56 mg/dL (7-17); CALCIUM 9.5 mg/dl (8.6-10.4)
[2018-04-14 10:41] LABS: GFR NON-AFRICAN AMERICAN 5
--- NOTE | 2018-04-14 14:20 | CP.PCM.PN ---
Subjective - Date & Time of Evaluation Date of Evaluation: 04/14/18 Time of Evaluation: 14:19 - Subjective Subjective: Nephrology Consultation Note: Assessment: Stable acute on chronic pancreatitis Hypertensive Chronic Kidney Disease (I12.0) End stage renal disease (N18.6) dependence on hemodialysis (Z99.2) (MWF) via AVF Anemia (D64.9), Hyperphosphatemia (E83.39), Secondary Hyperparathyroidism (E21.1), HTN (I12.0) Plan: Will plan for HD MWF as ordered. Continue with Nephrovite 1 tab/day. PRBC as needed for anemia. not on DARINEL with dialysis as last Hb 10.8 Continue with phos binders, check phos level continue with sensipar BP control with meds as ordered. Patient on RAAS jhony as losartan Glycemic control, Dialysis consistent diet Further work up/management as per primary team Dose meds/antibiotics (if needed) for ESRD status. Avoid fleets enema/magnesium based laxatives. cardiology and GI following Thanks for allowing me to participate in care of your patient. Will follow patient with you. Please call if any Qs. Dr Ananda Escalona Office: [phone] Chief Complaint; pain abdomen HPI: Pt is a 47 F with hx of ESRD on hemodialysis (MWF) via AVF ,chronic anemia, hyperphosphatemia, secondary hyperparathyroidism, hypertension and chronic pancreatitis presented with complaints of pain abdomen Renal consult requested for ESRD management. pt with recurrent and multiple admissions for same says pain abdomen better ROS: Cardiovascular: No chest pain. Pulmonary: No shortness of breath Gastrointestinal: improved abdominal pain no nausea. no vomiting. Genitourinary: No pain while urinating. Denies blood in urine. All other negative except as mentioned in HPI Physical Examination: seen on HD General Appearance: Comfortable, in no acute respiratory distress, somewhat unco-operative . Vitals reviewed and noted as below Head; Atraumatic, normocephalic ENT: no ulcers no thrush. Tongue is midline. Oropharynx: no rash or ulcers. EYES: Pupils are equal, round and reactive to light accommodation. Eye muscles and extraocular movement intact. Sclera is anicteric. Neck; supple no lymphadenopathy, no thyromegaly or bruit Lungs: Normal respiratory rate/effort. Breath sounds bilateral equal and clear Heart: Normal rate. s1s2 normal. No rub or gallop. Extremities: no edema. No varicose veins Neurological: Patient is alert, awake and oriented to person, place and time. No focal deficit. Strength bilateral appropriate and equal Skin: Warm and dry. Normal turgor. No rash. Palpitation: Normal elasticity for age Abdomen: Abdomen is soft. Bowel sounds +. There is no abdominal tenderness, no guarding/rigidity or organomegaly Psych: normal insight and flat affect/mood MSK: no joint tenderness or swelling. Digits and nails normal, no deformity : kidney or bladder not palpable Access: AVF Labs/imaging reviewed. Past medical history, past surgical history, family history, social history, allergy reviewed and noted as below Family Hx: no hx of CKD. Non contributory Objective - Vital Signs/Intake and Output Vital Signs (last 24 hours): Temp Pulse Resp BP Pulse Ox 97.7 F 79 16 127/88 97 04/14/18 12:05 04/14/18 12:05 04/14/18 12:05 04/14/18 12:05 04/14/18 12:05 Intake and Output: 04/14/18 04/14/18 06:59 18:59 Intake Total 50 Balance 50 - Medications Medications: Current Medications Amlodipine Besylate (Norvasc) 10 mg PO DAILY [facility] Last Admin: 04/14/18 09:08 Dose: Not Given Carvedilol (Coreg) 25 mg PO Q12H [facility] Last Admin: 04/14/18 09:08 Dose: Not Given Cinacalcet (Sensipar) 30 mg PO DAILY [facility] Last Admin: 04/14/18 09:09 Dose: Not Given Heparin Sodium (Porcine) (Heparin) 5,000 units SC Q8 [facility] Last Admin: 04/14/18 13:01 Dose: Not Given Insulin Human Regular (Novolin R) 0 unit SC ACHS [facility]; Protocol Last Admin: 04/14/18 12:21 Dose: Not Given Losartan Potassium (Cozaar) 25 mg PO DAILY [facility] Last Admin: 04/14/18 09:08 Dose: Not Given Metoclopramide HCl (Reglan) 5 mg PO 0600,1130,1630,2200 [facility] Last Admin: 04/14/18 12:37 Dose: Not Given Metoclopramide HCl (Reglan) 5 mg IVP Q6H [facility] Last Admin: 04/14/18 13:02 Dose: Not Given Morphine Sulfate (Morphine) 2 mg IVP Q4 PRN PRN Reason: Pain, moderate (4-7) Last Admin: 04/14/18 10:14 Dose: 2 mg Ondansetron HCl (Zofran Inj) 4 mg IVP Q6 PRN PRN Reason: Nausea/Vomiting Last Admin: 04/12/18 19:28 Dose: 4 mg Pantoprazole Sodium (Protonix Inj) 40 mg IVP DAILY [facility] Last Admin: 04/14/18 09:08 Dose: Not Given Rosuvastatin Calcium (Crestor) 2.5 mg PO HS [facility] Last Admin: 04/13/18 21:48 Dose: 2.5 mg Sevelamer Carbonate (Renvela) 800 mg PO TIDCC [facility] Last Admin: 04/14/18 12:45 Dose: Not Given Vitamin B Complex/Vit C/Folic Acid (Nephro-Divya) 1 tab PO DAILY [facility] Last Admin: 04/14/18 09:08 Dose: Not Given - Labs Labs: 04/14/18 09:48 04/14/18 09:32 PT 11.0 SECONDS (9.7-12.2) 04/14/18 09:32 INR 1.0 04/14/18 09:32 APTT 33 SECONDS (21-34) 04/14/18 09:32
--- NOTE | 2018-04-14 21:25 | CP.PCM.PN ---
Subjective - Date & Time of Evaluation Date of Evaluation: 04/14/18 Time of Evaluation: 09:20 - Subjective Subjective: dictated Objective - Vital Signs/Intake and Output Vital Signs (last 24 hours): Temp Pulse Resp BP Pulse Ox 98.2 F 84 20 130/82 98 04/14/18 16:00 04/14/18 16:00 04/14/18 16:00 04/14/18 16:00 04/14/18 16:00 - Medications Medications: Current Medications Amlodipine Besylate (Norvasc) 10 mg PO DAILY [facility] Last Admin: 04/14/18 09:08 Dose: Not Given Carvedilol (Coreg) 25 mg PO Q12H [facility] Last Admin: 04/14/18 09:08 Dose: Not Given Cinacalcet (Sensipar) 30 mg PO DAILY [facility] Last Admin: 04/14/18 09:09 Dose: Not Given Heparin Sodium (Porcine) (Heparin) 5,000 units SC Q8 [facility] Last Admin: 04/14/18 13:01 Dose: Not Given Insulin Human Regular (Novolin R) 0 unit SC [facility]; Protocol Last Admin: 04/14/18 17:19 Dose: 1 unit Losartan Potassium (Cozaar) 25 mg PO DAILY [facility] Last Admin: 04/14/18 09:08 Dose: Not Given Metoclopramide HCl (Reglan) 5 mg PO 0600,1130,1630,2200 [facility] Last Admin: 04/14/18 17:19 Dose: 5 mg Morphine Sulfate (Morphine) 2 mg IVP Q4 PRN PRN Reason: Pain, moderate (4-7) Last Admin: 04/14/18 15:52 Dose: 2 mg Ondansetron HCl (Zofran Inj) 4 mg IVP Q6 PRN PRN Reason: Nausea/Vomiting Last Admin: 04/12/18 19:28 Dose: 4 mg Pantoprazole Sodium (Protonix Inj) 40 mg IVP DAILY [facility] Last Admin: 04/14/18 09:08 Dose: Not Given Rosuvastatin Calcium (Crestor) 2.5 mg PO HS [facility] Last Admin: 04/13/18 21:48 Dose: 2.5 mg Sevelamer Carbonate (Renvela) 800 mg PO TIDCC [facility] Last Admin: 04/14/18 17:17 Dose: 800 mg Vitamin B Complex/Vit C/Folic Acid (Nephro-Divya) 1 tab PO DAILY [facility] Last Admin: 04/14/18 09:08 Dose: Not Given - Labs Labs: 04/14/18 09:48 04/14/18 09:32 PT 11.0 SECONDS (9.7-12.2) 04/14/18 09:32 INR 1.0 04/14/18 09:32 APTT 33 SECONDS (21-34) 04/14/18 09:32
[2018-04-14] MEDS: Rosuvastatin Calcium 2.5 mg Tab PO SCH (21:37)
--- NOTE | 2018-04-14 22:33 | CP.PCM.PN ---
Subjective - Date & Time of Evaluation Date of Evaluation: 04/14/18 Time of Evaluation: 17:30 - Subjective Subjective: Patient seen and evaluated Denies chest pain and dyspnea Review of Systems - Review of Systems Systems not reviewed;Unavailable: Acuity of Condition - Constitutional Constitutional: Fatigue - EENT Eyes: As Per HPI Ears: As Per HPI Nose/Mouth/Throat: As Per HPI - Breasts Breasts: As Per HPI - Cardiovascular Cardiovascular: As Per HPI - Respiratory Respiratory: As Per HPI - Gastrointestinal Gastrointestinal: Abdominal Pain Additional comments: has ilieus - Genitourinary Additional comments: ESRD on dialysis - Reproductive: Female Reproductive:Female: As Per HPI - Menstruation Menstruation: As Per HPI - Musculoskeletal Musculoskeletal: As Per HPI - Integumentary Integumentary: As Per HPI - Neurological Neurological: As Per HPI - Psychiatric Psychiatric: As Per HPI - Endocrine Endocrine: As Per HPI - Hematologic/Lymphatic Hematologic: As Per HPI Physical Exam - Constitutional Appears: In Acute Distress - Head Exam Head Exam: ATRAUMATIC - Eye Exam Eye Exam: Normal appearance Pupil Exam: NORMAL ACCOMODATION - ENT Exam ENT Exam: Normal Exam - Neck Exam Neck exam: Positive for: Full Rom - Respiratory Exam Respiratory Exam: Clear to Auscultation Bilateral - Cardiovascular Exam Cardiovascular Exam: REGULAR RHYTHM - GI/Abdominal Exam GI & Abdominal Exam: Distended, Tenderness - Rectal Exam Rectal Exam: NORMAL INSPECTION - Extremities Exam Extremities exam: Positive for: normal inspection - Back Exam Back exam: NORMAL INSPECTION - Neurological Exam Neurological exam: Normal Gait - Psychiatric Exam Psychiatric exam: Normal Affect - Skin Skin Exam: Dry Objective - Vital Signs/Intake and Output Vital Signs (last 24 hours): Temp Pulse Resp BP Pulse Ox 98.2 F 84 20 119/80 98 04/14/18 16:00 04/14/18 16:00 04/14/18 16:00 04/14/18 21:37 04/14/18 16:00 Intake and Output: 04/14/18 04/15/18 18:59 06:59 Intake Total 240 Balance 240 - Medications Medications: Current Medications Amlodipine Besylate (Norvasc) 10 mg PO DAILY [facility] Last Admin: 04/14/18 09:08 Dose: Not Given Carvedilol (Coreg) 25 mg PO Q12H [facility] Last Admin: 04/14/18 21:37 Dose: 25 mg Cinacalcet (Sensipar) 30 mg PO DAILY [facility] Last Admin: 04/14/18 09:09 Dose: Not Given Heparin Sodium (Porcine) (Heparin) 5,000 units SC Q8 [facility] Last Admin: 04/14/18 21:41 Dose: Not Given Insulin Human Regular (Novolin R) 0 unit SC ACHS [facility]; Protocol Last Admin: 04/14/18 21:41 Dose: Not Given Losartan Potassium (Cozaar) 25 mg PO DAILY [facility] Last Admin: 04/14/18 09:08 Dose: Not Given Metoclopramide HCl (Reglan) 5 mg PO 0600,1130,1630,2200 [facility] Last Admin: 04/14/18 21:38 Dose: 5 mg Morphine Sulfate (Morphine) 2 mg IVP Q4 PRN PRN Reason: Pain, moderate (4-7) Last Admin: 04/14/18 21:37 Dose: 2 mg Ondansetron HCl (Zofran Inj) 4 mg IVP Q6 PRN PRN Reason: Nausea/Vomiting Last Admin: 04/12/18 19:28 Dose: 4 mg Pantoprazole Sodium (Protonix Inj) 40 mg IVP DAILY [facility] Last Admin: 04/14/18 09:08 Dose: Not Given Rosuvastatin Calcium (Crestor) 2.5 mg PO HS [facility] Last Admin: 04/14/18 21:37 Dose: 2.5 mg Sevelamer Carbonate (Renvela) 800 mg PO TIDCC [facility] Last Admin: 04/14/18 17:17 Dose: 800 mg Vitamin B Complex/Vit C/Folic Acid (Nephro-Divya) 1 tab PO DAILY [facility] Last Admin: 04/14/18 09:08 Dose: Not Given - Labs Labs: 04/14/18 09:48 04/14/18 09:32 PT 11.0 SECONDS (9.7-12.2) 04/14/18 09:32 INR 1.0 04/14/18 09:32 APTT 33 SECONDS (21-34) 04/14/18 09:32 Assessment and Plan - Assessment and Plan (Free Text) Assessment: A/P: Uncontrolled HTN better today CRF on HD
--- NOTE | 2018-04-15 02:39 | PN ---
DATE: 04/14/2018 SUBJECTIVE: The patient is for EGD tomorrow morning. No fever. No chills. Decreased nausea. Decreased vomiting. PHYSICAL EXAMINATION: VITAL SIGNS: Blood pressure is 130/82, pulse 84, respiratory rate 20, temperature 98.2. LUNGS: Clear. CARDIOVASCULAR SYSTEM: S1, S2 regular. ABDOMEN: Soft. ASSESSMENT: 1. Chronic kidney disease. 2. Pancreatitis. Rule out peptic ulcer disease. 3. Hypertension. PLAN: Admit. Detailed orders written. Seen and examined. Phuc Young MD
[2018-04-15] MEDS: (Novolin R) Insulin Human Regular 100 units/ml vial SC SCH ×2 (08:12→12:26)
[2018-04-15] MEDS: Multivitamin Vitamin B Complex (Nephro-Vite) Tab PO SCH (09:17)
[2018-04-15] MEDS ORDERED: Lidocaine 4% (Laryng-O-Jet) Kit MM ONE (10:32)
[2018-04-15] MEDS ORDERED: Midazolam 2 MG/2 ML VIAL ONE (10:40)
[2018-04-15] MEDS ORDERED: Propofol 10 mg/ml Inj (20 ML) ONE (10:40)
[2018-04-15] MEDS ORDERED: Sodium Chloride 0.9% 1,000 ML IV ONE (10:46)
[2018-04-15] MEDS ORDERED: Lidocaine Hydrochloride 5 ML INJ ONE (10:53)
[2018-04-15 12:05] VITALS: TEMP 97.8
[2018-04-15 12:06] VITALS: O2SAT 100
[2018-04-15 12:07] VITALS: RESP 19
[2018-04-15 12:08] VITALS: BP 108/72; PULSE 75
--- NOTE | 2018-04-15 14:54 | CP.PCM.PN ---
Subjective - Date & Time of Evaluation Date of Evaluation: 04/15/18 Time of Evaluation: 14:54 - Subjective Subjective: Nephrology Consultation Note: Assessment: Stable acute on chronic pancreatitis Hypertensive Chronic Kidney Disease (I12.0) End stage renal disease (N18.6) dependence on hemodialysis (Z99.2) (MWF) via AVF Anemia (D64.9), Hyperphosphatemia (E83.39), Secondary Hyperparathyroidism (E21.1), HTN (I12.0) esophageal candidiasis duodenitis gastritis on EGD 04/15/18 Plan: Will plan for HD MWF as ordered. Continue with Nephrovite 1 tab/day. PRBC as needed for anemia. not on DARINEL with dialysis as last Hb 10.8 Continue with phos binders, check phos level continue with sensipar BP control with meds as ordered. Patient on RAAS jhony as losartan Glycemic control, Dialysis consistent diet Further work up/management as per primary team Dose meds/antibiotics (if needed) for ESRD status. Avoid fleets enema/magnesium based laxatives. cardiology and GI following Thanks for allowing me to participate in care of your patient. Will follow pat ient with you. Please call if any Qs. Dr Ananda Escalona Office: [phone] Chief Complaint; pain abdomen HPI: Pt is a 47 F with hx of ESRD on hemodialysis (MWF) via AVF ,chronic anemia, hyperphosphatemia, secondary hyperparathyroidism, hypertension and chronic pancreatitis presented with complaints of pain abdomen Renal consult requested for ESRD management. pt with recurrent and multiple admissions for same says pain abdomen better ROS: Cardiovascular: No chest pain. Pulmonary: No shortness of breath Gastrointestinal: improved abdominal pain no nausea. no vomiting. Genitourinary: No pain while urinating. Denies blood in urine. All other negative except as mentioned in HPI Physical Examination: General Appearance: Comfortable, in no acute respiratory distress, somewhat unco-operative . Vitals reviewed and noted as below Head; Atraumatic, normocephalic ENT: no ulcers no thrush. Tongue is midline. Oropharynx: no rash or ulcers. EYES: Pupils are equal, round and reactive to light accommodation. Eye muscles and extraocular movement intact. Sclera is anicteric. Neck; supple no lymphadenopathy, no thyromegaly or bruit Lungs: Normal respiratory rate/effort. Breath sounds bilateral equal and clear Heart: Normal rate. s1s2 normal. No rub or gallop. Extremities: no edema. No varicose veins Neurological: Patient is alert, awake and oriented to person, place and time. No focal deficit. Strength bilateral appropriate and equal Skin: Warm and dry. Normal turgor. No rash. Palpitation: Normal elasticity for age Abdomen: Abdomen is soft. Bowel sounds +. There is no abdominal tenderness, no guarding/rigidity or organomegaly Psych: normal insight and flat affect/mood MSK: no joint tenderness or swelling. Digits and nails normal, no deformity : kidney or bladder not palpable Access: AVF Labs/imaging reviewed. Past medical history, past surgical history, family history, social history, allergy reviewed and noted as below Family Hx: no hx of CKD. Non contributory Objective - Vital Signs/Intake and Output Vital Signs (last 24 hours): Temp Pulse Resp BP Pulse Ox 97.8 F 75 19 108/72 100 04/15/18 11:00 04/15/18 11:45 04/15/18 11:45 04/15/18 11:45 04/15/18 11:45 Intake and Output: 04/15/18 04/15/18 06:59 18:59 Intake Total 240 480 Balance 240 480 - Medications Medications: Current Medications Amlodipine Besylate (Norvasc) 10 mg PO DAILY [facility] Last Admin: 04/15/18 09:17 Dose: 10 mg Carvedilol (Coreg) 25 mg PO Q12H [facility] Last Admin: 04/15/18 09:16 Dose: 25 mg Cinacalcet (Sensipar) 30 mg PO DAILY [facility] Last Admin: 04/15/18 09:17 Dose: Not Given Heparin Sodium (Porcine) (Heparin) 5,000 units SC Q8 [facility] Last Admin: 04/15/18 13:06 Dose: Not Given Insulin Human Regular (Novolin R) 0 unit SC ACHS [facility]; Protocol Last Admin: 04/15/18 12:26 Dose: Not Given Losartan Potassium (Cozaar) 25 mg PO DAILY [facility] Last Admin: 04/15/18 09:17 Dose: 25 mg Metoclopramide HCl (Reglan) 5 mg PO 0600,1130,1630,2200 [facility] Last Admin: 04/15/18 12:31 Dose: Not Given Morphine Sulfate (Morphine) 2 mg IVP Q4 PRN PRN Reason: Pain, moderate (4-7) Last Admin: 04/15/18 12:31 Dose: 2 mg Ondansetron HCl (Zofran Inj) 4 mg IVP Q6 PRN PRN Reason: Nausea/Vomiting Last Admin: 04/12/18 19:28 Dose: 4 mg Pantoprazole Sodium (Protonix Inj) 40 mg IVP DAILY [facility] Last Admin: 04/15/18 09:17 Dose: 40 mg Rosuvastatin Calcium (Crestor) 2.5 mg PO HS [facility] Last Admin: 04/14/18 21:37 Dose: 2.5 mg Sevelamer Carbonate (Renvela) 800 mg PO TIDCC [facility] Last Admin: 04/15/18 12:31 Dose: 800 mg Vitamin B Complex/Vit C/Folic Acid (Nephro-Divya) 1 tab PO DAILY [facility] Last Admin: 04/15/18 09:17 Dose: Not Given - Labs Labs: 04/14/18 09:48 04/15/18 07:48 PT 11.0 SECONDS (9.7-12.2) 04/14/18 09:32 INR 1.0 04/14/18 09:32 APTT 33 SECONDS (21-34) 04/14/18 09:32
[2018-04-15] MEDS ORDERED: Influenza Vaccine 60 mcg/0.5 mL SYR (4YR UP) IM ONE (14:58)
--- NOTE | 2018-04-15 15:51 | PCM.HF ---
Heart Failure Core Measure - Heart Failure Ejection Fraction: 40 % or Greater (EF >40%) VINITA Inhibitor Prescribed: No Contraindication/Reason for not providing: ESRD Beta-Jean-Paul Prescribed: Carvedilol Angiotensin II Receptor Jean-Paul Prescribed: No Contraindication/Reason for not providing: ESRD AnticoagulationTherapy for Atrial Fibrillation/Atrialflutter: No Contraindication/Reason for not providing: no afib Aldosterone Antagonist Prescribed: No Contraindication/Reason for not providing: EF >40% Hydralazine Nitrate Prescribed: No Contraindication/Reason for not providing: EF >40% Implantable Cardioverter Defibrillator Therapy: No Contraindication/Reason for not providing: EF >40% Cardiac Resynchronization Therapy Prescribed: No Contraindication/Reason for not providing: not indicated - Follow up Will be discharged to: Home Follow Up Date (must be within 7 days from discharge): 04/19/18 Follow Up Time: 10:00
--- NOTE | 2018-04-15 16:01 | CP.PCM.PN ---
Subjective - Date & Time of Evaluation Date of Evaluation: 04/15/18 Time of Evaluation: 11:00 - Subjective Subjective: alert, oriented, ambulatory, no acute distress. Objective - Vital Signs/Intake and Output Vital Signs (last 24 hours): Temp Pulse Resp BP Pulse Ox 97.8 F 75 19 108/72 100 04/15/18 11:00 04/15/18 11:45 04/15/18 11:45 04/15/18 11:45 04/15/18 11:45 Intake and Output: 04/15/18 04/15/18 06:59 18:59 Intake Total 240 480 Balance 240 480 - Labs Labs: 04/14/18 09:48 04/15/18 07:48 PT 11.0 SECONDS (9.7-12.2) 04/14/18 09:32 INR 1.0 04/14/18 09:32 APTT 33 SECONDS (21-34) 04/14/18 09:32 Assessment and Plan - Assessment and Plan (Free Text) Assessment: 47 year old female with ESRD on hemodialysis,MWF, admitted with vomiting and abdominal pain. s/p EGD, yesterday, seen and examined, alert and orientedx3, no vomiting, tolerated diet today. Discussed with DR Young, plan to discharge home today, advised to follow up with PMD in 1 week.
--- NOTE | 2018-04-16 08:25 | CP.PCM.DIS ---
Provider - Provider Date of Admission: 04/12/18 13:44 Attending physician: Phuc Young MD Consults: 04/10/18 20:06 Gastroenterology Consult Stat Comment: Consulting Provider: Rosario Cash Consulting Physician: Rosario Cash Reason for Consult: pancreatitis 04/11/18 12:42 Nephrology Consult Routine Comment: Consulting Provider: Damian Garcia Consulting Physician: Damian Garcia Reason for Consult: elevated creatinine on HD 04/12/18 17:44 Cardiology Consult Routine Comment: Consulting Provider: Ravinder Petersen Consulting Physician: Ravinder Petersen Reason for Consult: hypertnesion Time Spent in preparation of Discharge (in minutes): 30 Hospital Course - Lab Results Lab Results: Most Recent Lab Values WBC 8.1 K/uL (4.8-10.8) 04/14/18 09:48 RBC 4.32 Mil/uL (3.80-5.20) 04/14/18 09:48 Hgb 11.1 g/dL (11.0-16.0) 04/14/18 09:48 Hct 34.9 % (34.0-47.0) 04/14/18 09:48 MCV 80.7 fL (81.0-99.0) L 04/14/18 09:48 MCH 25.7 pg (27.0-31.0) L 04/14/18 09:48 MCHC 31.9 g/dL (33.0-37.0) L 04/14/18 09:48 RDW 20.5 % (11.5-14.5) H 04/14/18 09:48 Plt Count 203 K/uL (130-400) 04/14/18 09:48 MPV 7.8 fL (7.2-11.7) 04/14/18 09:48 Neut % (Auto) 77.2 % (50.0-75.0) H 04/10/18 18:33 Lymph % (Auto) 16.6 % (20.0-40.0) L 04/10/18 18:33 [place] % (Auto) 4.4 % (0.0-10.0) 04/10/18 18:33 Eos % (Auto) 0.9 % (0.0-4.0) 04/10/18 18:33 Baso % (Auto) 0.9 % (0.0-2.0) 04/10/18 18:33 Neut # (Auto) 5.5 K/uL (1.8-7.0) 04/10/18 18:33 Lymph # (Auto) 1.2 K/uL (1.0-4.3) 04/10/18 18:33 [place] # (Auto) 0.3 K/uL (0.0-0.8) 04/10/18 18:33 Eos # (Auto) 0.1 K/uL (0.0-0.7) 04/10/18 18:33 Baso # (Auto) 0.1 K/uL (0.0-0.2) 04/10/18 18:33 PT 11.0 SECONDS (9.7-12.2) 04/14/18 09:32 INR 1.0 04/14/18 09:32 APTT 33 SECONDS (21-34) 04/14/18 09:32 Sodium 136 mmol/L (132-148) 04/14/18 09:32 Potassium 5.8 mmol/L (3.6-5.2) H 04/14/18 09:32 Chloride 95 mmol/L (98-107) L 04/14/18 09:32 Carbon Dioxide 25 mmol/L (22-30) 04/14/18 09:32 Anion Gap 22 (10-20) H 04/14/18 09:32 BUN 56 mg/dL (7-17) H 04/14/18 09:32 Creatinine 8.8 mg/dL (0.7-1.2) H* 04/14/18 09:32 Est GFR ( Amer) 6 04/14/18 09:32 Est GFR (Non-Af Amer) 5 04/14/18 09:32 POC Glucose (mg/dL) 96 mg/dL (65-110) 04/15/18 12:03 Random Glucose 93 mg/dL (65-105) 04/14/18 09:32 Calcium 9.5 mg/dl (8.6-10.4) 04/14/18 09:32 Phosphorus 7.6 mg/dL (2.5-4.5) H 04/14/18 09:32 Magnesium 2.2 mg/dL (1.6-2.3) 04/14/18 09:32 Total Bilirubin 0.4 mg/dL (0.2-1.3) 04/14/18 09:32 AST 19 U/L (14-36) 04/14/18 09:32 ALT < 6 U/L (9-52) L D 04/14/18 09:32 Alkaline Phosphatase 607 U/L (38-126) H 04/14/18 09:32 Total Protein 7.9 g/dL (6.3-8.3) 04/14/18 09:32 Albumin 4.5 g/dL (3.5-5.0) 04/14/18 09:32 Globulin 3.4 gm/dL (2.2-3.9) 04/14/18 09:32 Albumin/Globulin Ratio 1.3 (1.0-2.1) 04/14/18 09:32 Triglycerides 66 mg/dL (0-149) 04/11/18 11:00 Cholesterol 164 mg/dL (0-199) 04/11/18 11:00 LDL Cholesterol Direct 58 mg/dL (0-129) 04/11/18 11:00 HDL Cholesterol 86 mg/dL (30-70) H 04/11/18 11:00 Amylase 206 U/L (30-110) H D 04/11/18 11:00 Lipase 302 U/L (23-300) H 04/13/18 13:49 Beta HCG, Quant 6.46 mIU/ML 04/15/18 07:48 Discharge Plan - Follow Up Plan Condition: STABLE Disposition: HOME/ ROUTINE Instructions: Pancreatitis (DC), Hemodialysis (DC), Acute Abdomen (Belly Pain), Adult (DC), End Stage Kidney Disease (DC) Additional Instructions: Follow up with PMD in 1 week continue with HD, MWF Referrals: Phuc Young MD [Staff Provider] -
--- NOTE | 2018-04-17 21:11 | DS ---
DISCHARGE DIAGNOSES: 1. Pancreatitis. 2. Chronic kidney disease. 3. Diabetes. 4. Hypertension. HISTORY OF PRESENT ILLNESS AND HOSPITAL COURSE: This is a 47-year-old female with history of type 2 diabetes, hypertension, hyperlipidemia, CKD, on hemodialysis for several years, came in because of abdominal pain, nausea, vomiting, elevated amylase and lipase levels. The patient was started on clear liquid diet, Protonix, Accu-Checks, sliding scale, hemodialysis, Reglan and Zofran. The patient's condition started improving. She is feeling better. She is for discharge. PHYSICAL EXAMINATION: VITAL SIGNS: Blood pressure , pulse 75. LUNGS: Clear. ABDOMEN: Soft and nontender. Bowel sounds are positive. PLAN: Discharge the patient. Follow up. Phuc Young MD
== END 2018-04-15 15:25 | disposition home or self-care (01) | DRG 557 ==
LOC: C.ER 17:45 → C.9E 20:01 → C.3T 20:43 → OBSVTOIN 04-12 13:44
PROVIDERS: ADMIT Internal Medicine; ATTEND Internal Medicine
PROC: 0DB68ZX Excision of Stomach, Via Natural or Artificial Opening Endoscopic, Diagnostic (ICD-10-PCS; principal; 2018-04-15 10:41)
DX: K85.90 Acute pancreatitis without necrosis or infection, unspecified (principal); B37.81 Candidal esophagitis; E11.22 Type 2 diabetes mellitus with diabetic chronic kidney disease; E11.65 Type 2 diabetes mellitus with hyperglycemia; K29.50 Unspecified chronic gastritis without bleeding; K44.9 Diaphragmatic hernia without obstruction or gangrene; K27.3 Acute peptic ulcer, site unspecified, without hemorrhage or perforation; I13.2 Hypertensive heart and chronic kidney disease with heart failure and with stage 5 chronic kidney disease, or end stage renal disease; I50.9 Heart failure, unspecified; N18.6 End stage renal disease; E78.5 Hyperlipidemia, unspecified; E83.39 Other disorders of phosphorus metabolism; K86.1 Other chronic pancreatitis; N25.81 Secondary hyperparathyroidism of renal origin; Z99.2 Dependence on renal dialysis; D64.9 Anemia, unspecified; N83.209 Unspecified ovarian cyst, unspecified side

== ENCOUNTER 2018-05-01 18:23 | Observation (INO) | payer MEDICAID ==
[2018-05-01 20:50] LABS: BASO # 0.1 K/uL (0.0-0.2); BASO % 0.8 % (0.0-2.0); EOS # 0.1 K/uL (0.0-0.7); EOS % 1.6 % (0.0-4.0); HEMOGLOBIN 11.6 g/dL (11.0-16.0); LYMPH # 1.5 K/uL (1.0-4.3); LYMPH % 21.5 % (20.0-40.0); MEAN CORPUSCULAR HEMOGLOBIN 25.5 pg (27.0-31.0); MEAN CORPUSCULAR HGB CONC 31.8 g/dL (33.0-37.0); MEAN PLATELET VOLUME 8.5 fL (7.2-11.7); MONO # 0.5 K/uL (0.0-0.8); MONO % 7.7 % (0.0-10.0); NEUT # 4.8 K/uL (1.8-7.0); NEUT % 68.4 % (50.0-75.0); NRBC % 0.1 % (0.0-2.0); RBC 4.54 Mil/uL (3.80-5.20); RED CELL DISTRIBUTION WIDTH 20.2 % (11.5-14.5); WHITE BLOOD COUNT 7.1 K/uL (4.8-10.8)
[2018-05-01 21:06] LABS: ALB/GLOB RATIO 1.4 (1.0-2.1); ALBUMIN 4.7 g/dL (3.5-5.0); ALT/SGPT < 6 U/L (9-52); AST/SGOT 39 U/L (14-36); BLOOD UREA NITROGEN 59 mg/dL (7-17); CALCIUM 8.6 mg/dl (8.6-10.4); LIPASE 602 U/L (23-300)
[2018-05-01 21:15] LABS: GFR NON-AFRICAN AMERICAN 7
--- NOTE | 2018-05-01 21:19 | C.PDOC ---
History Of Present Illness Pt is a poor historian. 47 y/o female pt with MWF dialysis presents to the ER c/o epigastric abdominal pain and vomiting that started today. Pt has no other complaints or associated sx at this time. Time Seen by Provider: 05/01/18 19:57 Chief Complaint (Nursing): Abdominal Pain History Per: Patient History/Exam Limitations: no limitations Onset/Duration Of Symptoms: Days (x1) Current Symptoms Are (Timing): Still Present Location Of Pain/Discomfort: Epigastric Past Medical History Reviewed: Historical Data, Nursing Documentation, Vital Signs Vital Signs: Last Vital Signs Temp 98.9 F 05/01/18 18:29 Pulse 96 H 05/01/18 18:29 Resp 16 05/01/18 18:29 BP 166/103 H 05/01/18 18:29 Pulse Ox 99 05/01/18 18:29 - Medical History PMH: CHF, HTN, Pancreatitis, End Stage Renal Disease, Chronic Kidney Disease - [facility] Procedures (10/10/17) EXCISION OF STOMACH, ENDO, DIAGN (04/12/18) Family History: States: No Known Family Hx - Social History Hx Alcohol Use: No Hx Substance Use: No - Immunization History Hx Tetanus Toxoid Vaccination: No Hx Influenza Vaccination: Yes Hx Pneumococcal Vaccination: No Review Of Systems Except As Marked, All Systems Reviewed And Found Negative. Constitutional: Negative for: Fever, Chills Cardiovascular: Negative for: Chest Pain Respiratory: Negative for: Cough, Shortness of Breath Gastrointestinal: Positive for: Abdominal Pain (epigastric). Negative for: Nausea, Vomiting Genitourinary: Negative for: Dysuria, Frequency Musculoskeletal: Negative for: Back Pain Physical Exam - Physical Exam Appears: Non-toxic, No Acute Distress Head: Atraumatic, Normacephalic Eye(s): bilateral: PERRL, EOMI, Other (conjunctiva clear ) Oral Mucosa: Moist Chest: Symmetrical Cardiovascular: Rhythm Regular, No Murmur Respiratory: No Rales, No Rhonchi, No Wheezing, Other (good air movement; lungs CTA b/l) Gastrointestinal/Abdominal: Soft, No Tenderness, No Distention, No Guarding, No Rebound Extremity: Other (AV fistula on upper right arm +thrill) Extremity: Bilateral: Atraumatic, Normal Color And Temperature, Other (no cyanotic or edema) Pulses: Left Dorsalis Pedis: Normal (2+), Right Dorsalis Pedis: Normal (2+) Neurological/Psych: Oriented x3, Normal Motor (5/5 muscle strength ), Normal Sensation, Other (GCS 15, CN 2-12 intact ) Gait: Steady ED Course And Treatment - Laboratory Results Result Diagrams: 05/01/18 20:47 05/01/18 20:47 Lab Results: Total Bilirubin 0.6 mg/dL (0.2-1.3) 05/01/18 20:47 AST 39 U/L (14-36) H D 05/01/18 20:47 ALT < 6 U/L (9-52) L 05/01/18 20:47 Alkaline Phosphatase 488 U/L (38-126) H 05/01/18 20:47 Total Protein 8.1 g/dL (6.3-8.3) 05/01/18 20:47 Albumin 4.7 g/dL (3.5-5.0) 05/01/18 20:47 Globulin 3.4 gm/dL (2.2-3.9) 05/01/18 20:47 Albumin/Globulin Ratio 1.4 (1.0-2.1) 05/01/18 20:47 Lipase 602 U/L (23-300) H 05/01/18 20:47 ECG Rhythm: Sinus Rhythm Interpretation Of ECG: T-wave inversion in lead 3 and AVF Rate From EC O2 Sat by Pulse Oximetry: 99 (RA) Pulse Ox Interpretation: Normal - Radiology CXR: Interpreted by Me, Viewed By Me CXR Interpretation: Yes: No Acute Disease Medical Decision Making Medical Decision Making: plans: -- chem labs -- blood work -- EKG -- CXR -- morphine -- zofran Patient belongs to Dr. Phylicia Vega who was unreachable at 01:00, spoke to Dr. Young who agreed to admit the patient. Disposition - Disposition Forms: [employer] (Japanese) - Scribe Statement The provider has reviewed the documentation as recorded by the Scribjesus Ramos Do Provider Attestation: All medical record entries made by the Scribe were at my direction and personally dictated by me. I have reviewed the chart and agree that the record accurately reflects my personal performance of the history, physical exam, med ica decision making, and the department course for this patient. I have also personally directed, reviewed, and agree with the discharge instructions and disposition.
[2018-05-02] MEDS: (Novolin R) Insulin Human Regular 100 units/ml vial SC SCH ×4 (07:34→22:21)
[2018-05-02] MEDS ORDERED: CINACALCET 30 MG PO SCH (10:00)
[2018-05-02] MEDS ORDERED: [UNRECOGNIZED DRUG - REMARK] PO SCH (10:00)
--- NOTE | 2018-05-02 12:26 | CP.PCM.CON ---
History of Present Illness - History of Present Illness History of Present Illness: Nephrology Consultation Note: Assessment: Stable acute on chronic pancreatitis Hypertensive Chronic Kidney Disease (I12.0) End stage renal disease (N18.6) dependence on hemodialysis (Z99.2) (MWF) via AVF Anemia (D64.9), Hyperphosphatemia (E83.39), Secondary Hyperparathyroidism (E21.1), HTN (I12.0) Plan: Will plan for HD MWF as ordered. Continue with Nephrovite 1 tab/day. hgb at goal no need for sharonda Continue with phos binders, phos ordered for tomorrow continue with sensipar bp controlled Glycemic control, Dialysis consistent diet Further work up/management as per primary team Dose meds/antibiotics (if needed) for ESRD status. Avoid fleets enema/magnesium based laxatives. Chief Complaint; pain abdomen HPI: Pt is a 47 F with hx of ESRD on hemodialysis (MWF) via AVF ,chronic anemia, hyperphosphatemia, secondary hyperparathyroidism, hypertension and chronic pancreatitis presented with complaints of pain abdomen Pt w/ multiple admissions for similar issue. + N/V yesterday. Today's abdominal pain improved tolerated breakfast. Renal consult requested for ESRD management. ROS: a full detailed ROS is negative except as in my hpi Physical Examination: General Appearance: Comfortable, in no acute respiratory distress, somewhat unco-operative . Vitals reviewed and noted as below Head; Atraumatic, normocephalic ENT: no ulcers no thrush. Tongue is midline. Oropharynx: no rash or ulcers. EYES: Pupils are equal, round and reactive to light accommodation. Eye muscles and extraocular movement intact. Sclera is anicteric. Neck; supple no lymphadenopathy, no thyromegaly or bruit Lungs: Normal respiratory rate/effort. Breath sounds bilateral equal and clear Heart: Normal rate. s1s2 normal. No rub or gallop. Extremities: no edema. No varicose veins Neurological: Patient is alert, awake and oriented to person, place and time. No focal deficit. Strength bilateral appropriate and equal Skin: Warm and dry. Normal turgor. No rash. Palpitation: Normal elasticity for age Abdomen: Abdomen is soft. Bowel sounds +. There is mild epigastric abdominal tenderness, no guarding/rigidity or organomegaly Psych: normal insight and flat affect/mood MSK: no joint tenderness or swelling. Digits and nails normal, no deformity : kidney or bladder not palpable Access: AVF Labs/imaging reviewed. Past medical history, past surgical history, family history, social history, allergy reviewed and noted as below Family Hx: no hx of CKD. Non contributory Past Patient History - Infectious Disease Hx of Infectious Diseases: None - Past Medical History & Family History Past Medical History?: Yes - Past Social History Smoking Status: Never Smoked - CARDIAC Hx Congestive Heart Failure: Yes Hx Hypertension: Yes - PULMONARY Hx Respiratory Disorders: No - NEUROLOGICAL Hx Neurological Disorder: No - HEENT Hx HEENT Problems: No - RENAL Hx Chronic Kidney Disease: Yes Date of Last Dialysis Treatment: 04/30/18 - ENDOCRINE/METABOLIC Hx Endocrine Disorders: Yes Hx Diabetes Mellitus Type 2: Yes - HEMATOLOGICAL/ONCOLOGICAL Hx Blood Disorders: No Hx Cirrhosis: No Hx Hepatitis A: No Hx Hepatitis B: No Hx Hepatitis C: No - INTEGUMENTARY Hx Dermatological Problems: No - MUSCULOSKELETAL/RHEUMATOLOGICAL Hx Falls: No - GASTROINTESTINAL Hx Pancreatitis: Yes - GENITOURINARY/GYNECOLOGICAL Hx Genitourinary Disorders: No - PSYCHIATRIC Hx Substance Use: No - SURGICAL HISTORY Hx Surgeries: Yes Hx Section: Yes (X2) Hx Vascular Access Device: Yes (RIGHT AV SHUNT 5 YEARS AGO) - ANESTHESIA Hx Anesthesia: Yes Hx Anesthesia Reactions: No Hx Malignant Hyperthermia: No Meds Allergies/Adverse Reactions: Allergies Allergy/AdvReac Type Severity Reaction Status Date / Time No Known Allergies Allergy Verified 01/16/18 23:37 - Medications Medications: Current Medications Acetaminophen (Tylenol 325mg Tab) 650 mg PO Q4 PRN PRN Reason: Fever >100.4 F Amlodipine Besylate (Norvasc) 10 mg PO DAILY [facility] Last Admin: 05/02/18 09:49 Dose: 10 mg Carvedilol (Coreg) 25 mg PO BID [facility] Last Admin: 05/02/18 09:49 Dose: 25 mg Cinacalcet (Sensipar) 30 mg PO DAILY [facility] Last Admin: 05/02/18 11:04 Dose: 30 mg Heparin Sodium (Porcine) (Heparin) 5,000 units SC Q8 [facility] Last Admin: 05/02/18 05:40 Dose: 5,000 units Insulin Human Regular (Novolin R) 0 unit SC ACHS [facility]; Protocol Last Admin: 05/02/18 07:34 Dose: Not Given Morphine Sulfate (Morphine) 2 mg IVP Q4 PRN PRN Reason: Pain, moderate (4-7) Last Admin: 05/02/18 09:49 Dose: 2 mg Ondansetron HCl (Zofran Inj) 4 mg IVP Q6 PRN PRN Reason: Nausea/Vomiting Pantoprazole Sodium (Protonix Inj) 40 mg IVP DAILY [facility] Last Admin: 05/02/18 10:31 Dose: 40 mg Rosuvastatin Calcium (Crestor) 5 mg PO HS [facility] Sevelamer Carbonate (Renvela) 800 mg PO TID [facility] Last Admin: 05/02/18 10:32 Dose: 800 mg Results - Vital Signs Recent Vital Signs: Last Vital Signs Temp 98.3 F 05/02/18 09:13 Pulse 89 05/02/18 09:13 Resp 18 05/02/18 09:13 BP 132/90 05/02/18 09:49 Pulse Ox 96 05/02/18 09:13 - Labs Result Diagrams: 05/01/18 20:47 05/01/18 20:47 Labs: Laboratory Results - last 24 hr 05/01/18 05/01/18 05/01/18 20:47 20:47 21:15 WBC 7.1 RBC 4.54 Hgb 11.6 Hct 36.3 MCV 80.0 L MCH 25.5 L MCHC 31.8 L RDW 20.2 H Plt Count 197 MPV 8.5 Neut % (Auto) 68.4 Lymph % (Auto) 21.5 [place] % (Auto) 7.7 Eos % (Auto) 1.6 Baso % (Auto) 0.8 Neut # (Auto) 4.8 Lymph # (Auto) 1.5 [place] # (Auto) 0.5 Eos # (Auto) 0.1 Baso # (Auto) 0.1 Sodium 139 Potassium 4.6 Chloride 95 L Carbon Dioxide 26 Anion Gap 22 H BUN 59 H Creatinine 6.6 H Est GFR ( Amer) 8 Est GFR (Non-Af Amer) 7 Random Glucose 70 D Calcium 8.6 Total Bilirubin 0.6 AST 39 H D ALT < 6 L Alkaline Phosphatase 488 H Troponin I 0.0690 Total Protein 8.1 Albumin 4.7 Globulin 3.4 Albumin/Globulin Ratio 1.4 Lipase 602 H Beta HCG, Quant 4.20
--- NOTE | 2018-05-02 14:54 | RAD ---
Date of service: 05/01/2018 HISTORY: Abdominal pain COMPARISON: Comparison chest dated 01/11/2018 TECHNIQUE: 1 view obtained. FINDINGS: LUNGS: Poor inspiration with low lung volumes, crowded bronchovascular markings and minor bibasilar atelectasis. PLEURA: No significant pleural effusion identified, no pneumothorax apparent. CARDIOVASCULAR: No aortic atherosclerotic calcification present. Mild cardiomegaly. Several tandem contiguous endovascular stents are seen overlying medial aspect right upper extremity OSSEOUS STRUCTURES: Slight widening of both AC joints. VISUALIZED UPPER ABDOMEN: Normal. OTHER FINDINGS: None. IMPRESSION: Poor inspiration with low lung volumes, crowded bronchovascular markings and minor bibasilar atelectasis.
--- NOTE | 2018-05-02 16:36 | CT ---
Date of service: 05/02/2018 PROCEDURE: CT Abdomen and Pelvis without intravenous contrast HISTORY: abd pain COMPARISON: None. TECHNIQUE: Without contrast.. Contrast dose: 0 Radiation dose: Total exam DLP = 434.77 mGy-cm. This CT exam was performed using one or more of the following dose reduction techniques: Automated exposure control, adjustment of the mA and/or kV according to patient size, and/or use of iterative reconstruction technique. FINDINGS: LOWER THORAX: Unremarkable. LIVER: Unremarkable. No gross lesion or ductal dilatation. GALLBLADDER AND BILE DUCTS: Unremarkable. PANCREAS: Unremarkable. No gross lesion or ductal dilatation. SPLEEN: Unremarkable. ADRENALS: Unremarkable. No mass. KIDNEYS AND URETERS: Severe bilateral renal atrophy. No hydronephrosis. No mass or calculus. VASCULATURE: Unremarkable. No aortic aneurysm. No aortic atherosclerotic calcification or mural plaque present. BOWEL: Unremarkable. No obstruction. No gross mural thickening. APPENDIX: Not identified. No secondary findings. PERITONEUM: Unremarkable. No free fluid. No free air. LYMPH NODES: Unremarkable. No enlarged lymph nodes. BLADDER: Poorly distended. Mild bladder wall thickening. This may reflect cystitis or may be artifactual. Correlate with urinalysis. REPRODUCTIVE: Normal uterus. BONES: Renal osteodystrophy. Schmorl's nodes in multiple lumbar vertebral endplates. OTHER FINDINGS: None. IMPRESSION: Mild diffuse bladder wall thickening. The bladder is poorly distended and this may be artifactual but correlation with urinalysis is advised to exclude cystitis. No other acute abnormality. Minor findings as above. The preliminary findings for this examination were reported by [facility] Radiology at 12:30 a.m. on 05/02/2018. There is discordance of this report with the preliminary findings. There is no evidence of enteritis on this examination.
--- NOTE | 2018-05-02 21:52 | CP.PCM.HP ---
Present on Admission - Present on Admission Any Indicators Present on Admission: No Past Patient History - Infectious Disease Hx of Infectious Diseases: None - Past Medical History & Family History Past Medical History?: Yes - Past Social History Smoking Status: Never Smoked - CARDIAC Hx Congestive Heart Failure: Yes Hx Hypertension: Yes - PULMONARY Hx Respiratory Disorders: No - NEUROLOGICAL Hx Neurological Disorder: No - HEENT Hx HEENT Problems: No - RENAL Hx Chronic Kidney Disease: Yes Date of Last Dialysis Treatment: 04/30/18 - ENDOCRINE/METABOLIC Hx Endocrine Disorders: Yes Hx Diabetes Mellitus Type 2: Yes - HEMATOLOGICAL/ONCOLOGICAL Hx Blood Disorders: No Hx Cirrhosis: No Hx Hepatitis A: No Hx Hepatitis B: No Hx Hepatitis C: No - INTEGUMENTARY Hx Dermatological Problems: No - MUSCULOSKELETAL/RHEUMATOLOGICAL Hx Falls: No - GASTROINTESTINAL Hx Pancreatitis: Yes - GENITOURINARY/GYNECOLOGICAL Hx Genitourinary Disorders: No - PSYCHIATRIC Hx Substance Use: No - SURGICAL HISTORY Hx Surgeries: Yes Hx Section: Yes (X2) Hx Vascular Access Device: Yes (RIGHT AV SHUNT 5 YEARS AGO) - ANESTHESIA Hx Anesthesia: Yes Hx Anesthesia Reactions: No Hx Malignant Hyperthermia: No Meds Allergies/Adverse Reactions: Allergies Allergy/AdvReac Type Severity Reaction Status Date / Time No Known Allergies Allergy Verified 01/16/18 23:37 Results - Vital Signs Recent Vital Signs: Last Vital Signs Temp 98.3 F 05/02/18 09:13 Pulse 89 05/02/18 09:13 Resp 18 05/02/18 09:13 BP 137/79 05/02/18 17:35 Pulse Ox 96 05/02/18 09:13 - Labs Result Diagrams: 05/01/18 20:47 05/01/18 20:47 Labs: Laboratory Results - last 24 hr 05/02/18 05/02/18 12:32 17:26 POC Glucose (mg/dL) 126 H 109
--- NOTE | 2018-05-03 06:00 | HP ---
CHIEF COMPLAINT: Abdominal pain. HISTORY OF PRESENT ILLNESS: This is a 47-year-old female who is well known to me with a history of disease, on hemodialysis. The patient has been on hemodialysis for a few years and she has history of hyperphosphatemia, secondary hypoparathyroidism, anemia and the patient is noncompliant with her diet, medication, and followup. She has chronic anemia. She was recently discharged from the hospital. The patient since yesterday started having nausea, vomiting, upper abdominal pain. The patient denies any radiation of pain to the back. She denies any dysuria or hematuria. She denies any history of gallbladder stone. The patient denies any right upper quadrant abdominal pain. She denies any fever, chills, or rigors. She denies any history of sneezing, itchy eyes, or itchy nose. There is no history of polyuria, polydipsia, or polyphagia. There is no history of hematuria or pyuria. There is no history of sneezing, itchy eyes, itchy nose. CURRENT MEDICATIONS: At home, she is on Zocor, Renvela, Protonix, Sensipar, Coreg, multivitamin, and Norvasc. SOCIAL HISTORY: She smokes. She drinks. FAMILY HISTORY: Negative for pancreatitis. PHYSICAL EXAMINATION: GENERAL: A middle-aged female, in mild distress. VITAL SIGNS: Blood pressure 132/90, pulse 59, respiratory rate 18, and temperature 98.3. SKIN: No bruises. No purpura. No petechiae. HEENT: Atraumatic and normocephalic. Negative pallor. Negative jaundice. Extraocular movements are intact. NECK: Supple. No JVD. No lymph node. No thyromegaly. No carotid bruits. CHEST WALL: Bilateral symmetrical expansion. LUNGS: Clear. No rales. No rhonchi. CARDIOVASCULAR SYSTEM: No heave. No thrill. ABDOMEN: Soft and nontender. Bowel sounds are positive. RECTAL: No masses. No bleed. EXTREMITIES: No clubbing, cyanosis, or edema. CENTRAL NERVOUS SYSTEM: Awake, alert, and oriented x3. Cranial nerves II through XII are normal. Power 5/5 x4. Plantars are downgoing. ASSESSMENT: 1. Pancreatitis, etiology unclear. It could be cholelithiasis, cholecystitis. It could be alcohol. 2. Chronic kidney disease, on hemodialysis. 3. Renal osteodystrophy. 4. Hypertension. PLAN: Admit. Detail orders are written. Seen and examined. Phuc Young MD
[2018-05-03] MEDS: (Novolin R) Insulin Human Regular 100 units/ml vial SC SCH ×4 (08:04→21:47)
--- NOTE | 2018-05-03 13:08 | NM ---
Date of service: 05/03/2018 PROCEDURE: Nuclear Medicine Hepatobiliary Scan HISTORY: cholecystitis COMPARISON: May 02, 2018. CT abdomen and pelvis TECHNIQUE: 5.9 mCi of technetium 99m Mebrofenin was administered intravenously. Planar images of the abdomen were obtained at 5 min intervals to 60 mins. Delayed images were also obtained. FINDINGS: LIVER: Timely and homogenous uptake. COMMON BILE DUCT: identified at 10 mins. GALLBLADDER: identified at 15 mins. SMALL BOWEL: Identified at 3 hr. IMPRESSION: Normal Hepatobiliary Scan. The cystic duct is patent. Incidental finding(s): Delayed visualization of small bowel likely related to intense accumulation of radionuclide within the gallbladder.
--- NOTE | 2018-05-03 13:57 | CP.PCM.PN ---
Subjective - Date & Time of Evaluation Date of Evaluation: 05/03/18 Time of Evaluation: 13:56 - Subjective Subjective: Nephrology Consultation Note: Assessment: Stable acute on chronic pancreatitis Hypertensive Chronic Kidney Disease (I12.0) End stage renal disease (N18.6) dependence on hemodialysis (Z99.2) (MWF) via AVF Anemia (D64.9), Hyperphosphatemia (E83.39), Secondary Hyperparathyroidism (E21.1), HTN (I12.0) Plan: Will plan for HD MWF as ordered. Continue with Nephrovite 1 tab/day. hgb at goal no need for sharonda Continue with phos binders continue with sensipar bp controlled Glycemic control, Dialysis consistent diet Further work up/management as per primary team Dose meds/antibiotics (if needed) for ESRD status. Avoid fleets enema/magnesium based laxatives. Chief Complaint; pain abdomen HPI: Pt is a 47 F with hx of ESRD on hemodialysis (MWF) via AVF ,chronic anemia, hyperphosphatemia, secondary hyperparathyroidism, hypertension and chronic pancreatitis presented with complaints of pain abdomen Pt w/ multiple admissions for similar issue. + N/V yesterday. Today's abdominal pain improved tolerated breakfast. Renal consult requested for ESRD management. ROS: pain abdomen better. no CP/SOB or nausea/vomitting a full detailed ROS is negative except as in my hpi Physical Examination: General Appearance: Comfortable, in no acute respiratory distress, co-operative . Vitals reviewed and noted as below Head; Atraumatic, normocephalic ENT: no ulcers no thrush. Tongue is midline. Oropharynx: no rash or ulcers. EYES: Pupils are equal, round and reactive to light accommodation. Eye muscles and extraocular movement intact. Sclera is anicteric. Neck; supple no lymphadenopathy, no thyromegaly or bruit Lungs: Normal respiratory rate/effort. Breath sounds bilateral equal and clear Heart: Normal rate. s1s2 normal. No rub or gallop. Extremities: no edema. No varicose veins Neurological: Patient is alert, awake and oriented to person, place and time. No focal deficit. Strength bilateral appropriate and equal Skin: Warm and dry. Normal turgor. No rash. Palpitation: Normal elasticity for age Abdomen: Abdomen is soft. Bowel sounds +. There is mild epigastric abdominal tenderness, no guarding/rigidity or organomegaly Psych: normal insight and flat affect/mood MSK: no joint tenderness or swelling. Digits and nails normal, no deformity : kidney or bladder not palpable Access: AVF Labs/imaging reviewed. Past medical history, past surgical history, family history, social history, allergy reviewed and noted as below Family Hx: no hx of CKD. Non contributory Objective - Vital Signs/Intake and Output Vital Signs (last 24 hours): Temp Pulse Resp BP Pulse Ox 98 F 78 20 158/98 H 97 05/03/18 10:31 05/03/18 10:31 05/03/18 10:31 05/03/18 10:31 05/03/18 10:31 Intake and Output: 05/03/18 05/03/18 06:59 18:59 Intake Total 310 Balance 310 - Medications Medications: Current Medications Acetaminophen (Tylenol 325mg Tab) 650 mg PO Q4 PRN PRN Reason: Fever >100.4 F Amlodipine Besylate (Norvasc) 10 mg PO DAILY [facility] Last Admin: 05/03/18 10:28 Dose: 10 mg Carvedilol (Coreg) 25 mg PO BID [facility] Last Admin: 05/03/18 10:28 Dose: 25 mg Cinacalcet (Sensipar) 30 mg PO DAILY [facility] Last Admin: 05/03/18 10:28 Dose: 30 mg Heparin Sodium (Porcine) (Heparin) 5,000 units SC Q8 [facility] Last Admin: 05/03/18 13:24 Dose: Not Given Insulin Human Regular (Novolin R) 0 unit SC ACHS [facility]; Protocol Last Admin: 05/03/18 12:07 Dose: Not Given Morphine Sulfate (Morphine) 2 mg IVP Q4 PRN PRN Reason: Pain, moderate (4-7) Last Admin: 05/03/18 10:53 Dose: 2 mg Ondansetron HCl (Zofran Inj) 4 mg IVP Q6 PRN PRN Reason: Nausea/Vomiting Pantoprazole Sodium (Protonix Inj) 40 mg IVP DAILY [facility] Last Admin: 05/03/18 10:28 Dose: 40 mg Rosuvastatin Calcium (Crestor) 5 mg PO HS [facility] Last Admin: 05/02/18 22:09 Dose: 5 mg Sevelamer Carbonate (Renvela) 800 mg PO TID [facility] Last Admin: 05/03/18 13:21 Dose: 800 mg Vitamin B Complex/Vit C/Folic Acid (Nephro-Divya) 1 tab PO 0800 [facility] - Labs Labs: 05/01/18 20:47 05/01/18 20:47
--- NOTE | 2018-05-03 22:40 | CP.PCM.PN ---
Subjective - Date & Time of Evaluation Date of Evaluation: 05/03/18 Time of Evaluation: 07:00 - Subjective Subjective: dictated Objective - Vital Signs/Intake and Output Vital Signs (last 24 hours): Temp Pulse Resp BP Pulse Ox 97.5 F L 76 16 127/77 97 05/03/18 17:25 05/03/18 20:55 05/03/18 20:55 05/03/18 20:55 05/03/18 17:25 - Medications Medications: Current Medications Acetaminophen (Tylenol 325mg Tab) 650 mg PO Q4 PRN PRN Reason: Fever >100.4 F Amlodipine Besylate (Norvasc) 10 mg PO DAILY [facility] Last Admin: 05/03/18 10:28 Dose: 10 mg Carvedilol (Coreg) 25 mg PO BID [facility] Last Admin: 05/03/18 17:23 Dose: Not Given Cinacalcet (Sensipar) 30 mg PO DAILY [facility] Last Admin: 05/03/18 10:28 Dose: 30 mg Heparin Sodium (Porcine) (Heparin) 5,000 units SC Q8 [facility] Last Admin: 05/03/18 21:47 Dose: Not Given Insulin Human Regular (Novolin R) 0 unit SC [facility]; Protocol Last Admin: 05/03/18 21:47 Dose: Not Given Morphine Sulfate (Morphine) 2 mg IVP Q4 PRN PRN Reason: Pain, moderate (4-7) Last Admin: 05/03/18 21:48 Dose: 2 mg Ondansetron HCl (Zofran Inj) 4 mg IVP Q6 PRN PRN Reason: Nausea/Vomiting Pantoprazole Sodium (Protonix Inj) 40 mg IVP DAILY [facility] Last Admin: 05/03/18 10:28 Dose: 40 mg Rosuvastatin Calcium (Crestor) 5 mg PO HS [facility] Last Admin: 05/03/18 21:48 Dose: 5 mg Sevelamer Carbonate (Renvela) 800 mg PO TID [facility] Last Admin: 05/03/18 17:23 Dose: Not Given Vitamin B Complex/Vit C/Folic Acid (Nephro-Divya) 1 tab PO 0800 [facility] - Labs Labs: 05/01/18 20:47 05/01/18 20:47
--- NOTE | 2018-05-04 01:34 | CARD ---
APPROVED REPORT Date of service: 05/01/2018 EKG Measurement Heart [id number] <Conclusion> Normal sinus rhythm T wave abnormality, consider inferior ischemia Prolonged QT Abnormal ECG
[2018-05-04 03:12] VITALS: RESP 20
--- NOTE | 2018-05-04 05:03 | PN ---
DATE: 05/03/2018 SUBJECTIVE: The patient, Tila Zuniga, is seen during hemodialysis. The patient is not in any distress, decreased abdominal pain. She is on liquid diet. No fever. No chills. The patient had HIDA scan done, which was negative for cholecystitis. No fever. No chills. PHYSICAL EXAMINATION: VITAL SIGNS: Blood pressure is 125/77, pulse 76, respiratory rate 18, temperature 98. LUNGS: Clear. CARDIOVASCULAR SYSTEM: S1, S2, regular. ABDOMEN: Soft. ASSESSMENT: 1. Pancreatitis. 2. Chronic kidney disease, on hemodialysis. 3. Hypertension. 4. Type 2 diabetes. PLAN: Admit. Continue current medications. Proceed diet. Phuc Young MD
[2018-05-04] MEDS: (Novolin R) Insulin Human Regular 100 units/ml vial SC SCH ×2 (07:30→11:36)
[2018-05-04] MEDS ORDERED: Multivitamin Vitamin B Complex (Nephro-Vite) Tab PO SCH (08:00)
--- NOTE | 2018-05-04 11:13 | CP.PCM.PN ---
Subjective - Date & Time of Evaluation Date of Evaluation: 05/04/18 Time of Evaluation: 11:13 - Subjective Subjective: Nephrology Consultation Note: Assessment: Stable acute on chronic pancreatitis Hypertensive Chronic Kidney Disease (I12.0) End stage renal disease (N18.6) dependence on hemodialysis (Z99.2) (MWF) via AVF Anemia (D64.9), Hyperphosphatemia (E83.39), Secondary Hyperparathyroidism (E21.1), HTN (I12.0) Plan: Will plan for HD MWF as ordered. Continue with Nephrovite 1 tab/day. hgb at goal no need for sharonda Continue with phos binders continue with sensipar bp controlled Glycemic control, Dialysis consistent diet Further work up/management as per primary team Dose meds/antibiotics (if needed) for ESRD status. Avoid fleets enema/magnesium based laxatives. Chief Complaint; pain abdomen HPI: Pt is a 47 F with hx of ESRD on hemodialysis (MWF) via AVF ,chronic anemia, hyperphosphatemia, secondary hyperparathyroidism, hypertension and chronic pancreatitis presented with complaints of pain abdomen Pt w/ multiple admissions for similar issue. + N/V yesterday. Today's abdominal pain improved tolerated breakfast. Renal consult requested for ESRD management. ROS: pain abdomen better. no CP/SOB or nausea/vomitting a full detailed ROS is negative except as in my hpi Physical Examination: General Appearance: Comfortable, in no acute respiratory distress, co-operative . Vitals reviewed and noted as below Head; Atraumatic, normocephalic ENT: no ulcers no thrush. Tongue is midline. Oropharynx: no rash or ulcers. EYES: Pupils are equal, round and reactive to light accommodation. Eye muscles and extraocular movement intact. Sclera is anicteric. Neck; supple no lymphadenopathy, no thyromegaly or bruit Lungs: Normal respiratory rate/effort. Breath sounds bilateral equal and clear Heart: Normal rate. s1s2 normal. No rub or gallop. Extremities: no edema. No varicose veins Neurological: Patient is alert, awake and oriented to person, place and time. No focal deficit. Strength bilateral appropriate and equal Skin: Warm and dry. Normal turgor. No rash. Palpitation: Normal elasticity for age Abdomen: Abdomen is soft. Bowel sounds +. There is mild epigastric abdominal tenderness, no guarding/rigidity or organomegaly Psych: normal insight and flat affect/mood MSK: no joint tenderness or swelling. Digits and nails normal, no deformity : kidney or bladder not palpable Access: AVF Labs/imaging reviewed. Past medical history, past surgical history, family history, social history, allergy reviewed and noted as below Family Hx: no hx of CKD. Non contributory Objective - Vital Signs/Intake and Output Vital Signs (last 24 hours): Temp Pulse Resp BP Pulse Ox 98.4 F 89 20 125/82 97 05/04/18 07:05 05/04/18 07:05 05/04/18 07:05 05/04/18 09:55 05/04/18 08:00 Intake and Output: 05/04/18 05/04/18 06:59 18:59 Intake Total 300 Balance 300 - Medications Medications: Current Medications Acetaminophen (Tylenol 325mg Tab) 650 mg PO Q4 PRN PRN Reason: Fever >100.4 F Amlodipine Besylate (Norvasc) 10 mg PO DAILY [facility] Last Admin: 05/04/18 09:53 Dose: 10 mg Carvedilol (Coreg) 25 mg PO BID [facility] Last Admin: 05/04/18 09:55 Dose: 25 mg Cinacalcet (Sensipar) 30 mg PO DAILY [facility] Last Admin: 05/04/18 09:53 Dose: 30 mg Heparin Sodium (Porcine) (Heparin) 5,000 units SC Q8 [facility] Last Admin: 05/04/18 05:54 Dose: Not Given Insulin Human Regular (Novolin R) 0 unit SC ACHS [facility]; Protocol Last Admin: 05/04/18 07:30 Dose: Not Given Morphine Sulfate (Morphine) 2 mg IVP Q4 PRN PRN Reason: Pain, moderate (4-7) Last Admin: 05/03/18 21:48 Dose: 2 mg Ondansetron HCl (Zofran Inj) 4 mg IVP Q6 PRN PRN Reason: Nausea/Vomiting Pantoprazole Sodium (Protonix Ec Tab) 40 mg PO DAILY [facility] Rosuvastatin Calcium (Crestor) 5 mg PO HS [facility] Last Admin: 05/03/18 21:48 Dose: 5 mg Sevelamer Carbonate (Renvela) 800 mg PO TID [facility] Last Admin: 05/04/18 09:53 Dose: 800 mg Vitamin B Complex/Vit C/Folic Acid (Nephro-Divya) 1 tab PO 0800 [facility] Last Admin: 05/04/18 09:53 Dose: 1 tab - Labs Labs: 05/01/18 20:47 05/01/18 20:47
[2018-05-04] MEDS ORDERED: Bisacodyl 5mg EC Tab PO ONE (13:26)
[2018-05-04 16:08] VITALS: BP 112/77; PULSE 83; TEMP 97.9; O2SAT 99
--- NOTE | 2018-05-04 16:14 | CP.PCM.PN ---
Subjective - Date & Time of Evaluation Date of Evaluation: 05/04/18 Time of Evaluation: 11:20 - Subjective Subjective: patient seen today states abdominal pain improved , tolerated diet without any issues vss - stable a febrile HIDA -scan negative lipase- normal Objective - Vital Signs/Intake and Output Vital Signs (last 24 hours): Temp Pulse Resp BP Pulse Ox 97.9 F 83 20 112/77 99 05/04/18 16:00 05/04/18 16:00 05/04/18 16:00 05/04/18 16:00 05/04/18 16:00 Intake and Output: 05/04/18 05/04/18 06:59 18:59 Intake Total 300 Balance 300 - Medications Medications: Current Medications Acetaminophen (Tylenol 325mg Tab) 650 mg PO Q4 PRN PRN Reason: Fever >100.4 F Amlodipine Besylate (Norvasc) 10 mg PO DAILY [facility] Last Admin: 05/04/18 09:53 Dose: 10 mg Carvedilol (Coreg) 25 mg PO BID [facility] Last Admin: 05/04/18 09:55 Dose: 25 mg Cinacalcet (Sensipar) 30 mg PO DAILY [facility] Last Admin: 05/04/18 09:53 Dose: 30 mg Heparin Sodium (Porcine) (Heparin) 5,000 units SC Q8 [facility] Last Admin: 05/04/18 14:18 Dose: Not Given Insulin Human Regular (Novolin R) 0 unit SC ACHS [facility]; Protocol Last Admin: 05/04/18 11:36 Dose: Not Given Morphine Sulfate (Morphine) 2 mg IVP Q4 PRN PRN Reason: Pain, moderate (4-7) Last Admin: 05/03/18 21:48 Dose: 2 mg Ondansetron HCl (Zofran Inj) 4 mg IVP Q6 PRN PRN Reason: Nausea/Vomiting Pantoprazole Sodium (Protonix Ec Tab) 40 mg PO DAILY [facility] Rosuvastatin Calcium (Crestor) 5 mg PO HS [facility] Last Admin: 05/03/18 21:48 Dose: 5 mg Sevelamer Carbonate (Renvela) 800 mg PO TID [facility] Last Admin: 05/04/18 14:17 Dose: 800 mg Vitamin B Complex/Vit C/Folic Acid (Nephro-Divya) 1 tab PO 0800 [facility] Last Admin: 05/04/18 09:53 Dose: 1 tab - Labs Labs: 05/01/18 20:47 05/01/18 20:47 Assessment and Plan - Assessment and Plan (Free Text) Assessment: A/P 47 yr female with pmhx of HTN, chronic Pancreatitis, End Stage Renal Disease,on HD c/o epigastric abdominal pain and vomiting abdominal pain and vomiting resolved and patient tolerating diet d/w Dr. young cleared for discharge home today and f/u with Dr. Young offic ein 1 week and continue HD as scheduled discharge plan discussed with patient who understands and agrees with plan Clintn instructed to returns to ED if symptoms returns or any other concerning symptom s Patient instructed to follow up with Dr. reno office - in 2 months follow up natividad hood
--- NOTE | 2018-05-04 23:51 | CP.PCM.DIS ---
Provider - Provider Date of Admission: 05/02/18 01:10 Attending physician: Phuc Young MD Consults: 05/02/18 01:32 Gastroenterology Consult Routine Comment: Consulting Provider: Rosario Cash Consulting Physician: Rosario Cash Reason for Consult: Ileus, elevated Lipase Nephrology Consult Routine Comment: Consulting Provider: Shailesh Garcia Consulting Physician: Shailesh Garcia Reason for Consult: HD MWF Time Spent in preparation of Discharge (in minutes): 30 Hospital Course - Lab Results Lab Results: Most Recent Lab Values WBC 7.1 K/uL (4.8-10.8) 05/01/18 20:47 RBC 4.54 Mil/uL (3.80-5.20) 05/01/18 20:47 Hgb 11.6 g/dL (11.0-16.0) 05/01/18 20:47 Hct 36.3 % (34.0-47.0) 05/01/18 20:47 MCV 80.0 fL (81.0-99.0) L 05/01/18 20:47 MCH 25.5 pg (27.0-31.0) L 05/01/18 20:47 MCHC 31.8 g/dL (33.0-37.0) L 05/01/18 20:47 RDW 20.2 % (11.5-14.5) H 05/01/18 20:47 Plt Count 197 K/uL (130-400) 05/01/18 20:47 MPV 8.5 fL (7.2-11.7) 05/01/18 20:47 Neut % (Auto) 68.4 % (50.0-75.0) 05/01/18 20:47 Lymph % (Auto) 21.5 % (20.0-40.0) 05/01/18 20:47 [place] % (Auto) 7.7 % (0.0-10.0) 05/01/18 20:47 Eos % (Auto) 1.6 % (0.0-4.0) 05/01/18 20:47 Baso % (Auto) 0.8 % (0.0-2.0) 05/01/18 20:47 Neut # (Auto) 4.8 K/uL (1.8-7.0) 05/01/18 20:47 Lymph # (Auto) 1.5 K/uL (1.0-4.3) 05/01/18 20:47 [place] # (Auto) 0.5 K/uL (0.0-0.8) 05/01/18 20:47 Eos # (Auto) 0.1 K/uL (0.0-0.7) 05/01/18 20:47 Baso # (Auto) 0.1 K/uL (0.0-0.2) 05/01/18 20:47 Sodium 139 mmol/L (132-148) 05/01/18 20:47 Potassium 4.6 mmol/L (3.6-5.2) 05/01/18 20:47 Chloride 95 mmol/L (98-107) L 05/01/18 20:47 Carbon Dioxide 26 mmol/L (22-30) 05/01/18 20:47 Anion Gap 22 (10-20) H 05/01/18 20:47 BUN 59 mg/dL (7-17) H 05/01/18 20:47 Creatinine 6.6 mg/dL (0.7-1.2) H 05/01/18 20:47 Est GFR ( Amer) 8 05/01/18 20:47 Est GFR (Non-Af Amer) 7 05/01/18 20:47 POC Glucose (mg/dL) 112 mg/dL (65-110) H 05/04/18 10:58 Random Glucose 70 mg/dL (65-105) D 05/01/18 20:47 Calcium 8.6 mg/dl (8.6-10.4) 05/01/18 20:47 Phosphorus 7.0 mg/dL (2.5-4.5) H 05/03/18 17:29 Total Bilirubin 0.6 mg/dL (0.2-1.3) 05/01/18 20:47 AST 39 U/L (14-36) H D 05/01/18 20:47 ALT < 6 U/L (9-52) L 05/01/18 20:47 Alkaline Phosphatase 488 U/L (38-126) H 05/01/18 20:47 Troponin I 0.0690 ng/mL (0.00-0.120) 05/01/18 20:47 Total Protein 8.1 g/dL (6.3-8.3) 05/01/18 20:47 Albumin 4.7 g/dL (3.5-5.0) 05/01/18 20:47 Globulin 3.4 gm/dL (2.2-3.9) 05/01/18 20:47 Albumin/Globulin Ratio 1.4 (1.0-2.1) 05/01/18 20:47 Amylase 233 U/L (30-110) H 05/03/18 17:29 Lipase 253 U/L (23-300) 05/03/18 17:29 Carcinoembryonic Ag 1.7 ng/mL (0-3.0) 05/03/18 17:29 CA 19-9 Antigen 42.2 U/mL (0-37) H 05/03/18 17:29 Beta HCG, Quant 4.20 mIU/ML 05/01/18 21:15 Discharge Plan - Follow Up Plan Condition: GOOD Disposition: HOME/ ROUTINE Instructions: Dialysis Diet , Heart Failure, Adult (DC), Acute Abdomen (Belly Pain), Child (DC), End Stage Kidney Disease (DC) Additional Instructions: Please follow up with Dr. Young office in 1 week Please continue HD as scheduled Please resume home medications Referrals: Phuc Young MD [Staff Provider] -
[2018-05-05] MEDS ORDERED: Pantoprazole 40 mg EC Tab PO SCH (10:00)
--- NOTE | 2018-05-06 13:13 | DS ---
DISCHARGE DIAGNOSES: 1. Pancreatitis. 2. Chronic kidney disease, on hemodialysis. 3. Hypertension. 4. Diabetes mellitus. HISTORY OF PRESENT ILLNESS: This is a 47-year-old -Maced[place] female with history of diabetes, hypertension, hyperlipidemia and chronic recurrent pancreatitis. She came in because of abdominal pain, nausea, and vomiting. Pain radiating to the back. The patient was found to have pancreatitis with elevated lipase and she was treated conservatively. She did well and she was treated, stabilized, and discharged with outpatient followup. Condition upon discharge, stable. PHYSICAL EXAMINATION: VITAL SIGNS: Blood pressure 112/77, pulse rate 88, respiratory rate 20, temperature 97.9. LUNGS: Clear. ABDOMEN: Soft and nontender. Bowel sounds are positive. PLAN: Discharge the patient. Phuc Young MD
== END 2018-05-04 17:55 | disposition home or self-care (01) ==
LOC: C.ER 18:23 → C.9E 05-02 01:10 → C.6T 05-02 01:58
PROVIDERS: ADMIT Internal Medicine; ATTEND Internal Medicine
DX: K86.1 Other chronic pancreatitis (principal); I13.2 Hypertensive heart and chronic kidney disease with heart failure and with stage 5 chronic kidney disease, or end stage renal disease; N18.6 End stage renal disease; N25.0 Renal osteodystrophy; I50.9 Heart failure, unspecified; F17.200 Nicotine dependence, unspecified, uncomplicated; E11.22 Type 2 diabetes mellitus with diabetic chronic kidney disease; E78.5 Hyperlipidemia, unspecified; Z99.2 Dependence on renal dialysis
CPT/HCPCS: 36415; 71045; 74176; 78226; 80053; 82150; 82378; 82948; 83690; 84100; 84484; 84702; 85025; 86301; 93005; 96365; 96372; 96374; 96375; 96376; 99285; A9537; C9113; G0257; G0378; J1644; J2270; J2405

== ENCOUNTER 2018-05-13 17:03 | Emergency (ER) | payer MEDICAID ==
[2018-05-13 17:29] VITALS: O2SAT 96
[2018-05-13] MEDS ORDERED: Alum-Mag Hydrox-Simethicone Susp (30 mL) PO STA (17:43)
[2018-05-13] MEDS ORDERED: Aluminum Hydroxide/Magnesium Hydroxide Susp (30 mL) ONE (18:04)
[2018-05-13 18:06] LABS: BASO # 0.1 K/uL (0.0-0.2); BASO % 0.8 % (0.0-2.0); EOS # 0.1 K/uL (0.0-0.7); EOS % 0.7 % (0.0-4.0); HEMOGLOBIN 13.1 g/dL (11.0-16.0); LYMPH # 1.7 K/uL (1.0-4.3); MEAN CELL VOLUME 78.4 fL (81.0-99.0); MEAN CORPUSCULAR HEMOGLOBIN 25.6 pg (27.0-31.0); MEAN CORPUSCULAR HGB CONC 32.7 g/dL (33.0-37.0); MEAN PLATELET VOLUME 8.4 fL (7.2-11.7); MONO # 0.6 K/uL (0.0-0.8); MONO % 6.7 % (0.0-10.0); NEUT # 6.9 K/uL (1.8-7.0); NEUT % 73.8 % (50.0-75.0); NRBC % 0.2 % (0.0-2.0); RBC 5.13 Mil/uL (3.80-5.20); RED CELL DISTRIBUTION WIDTH 19.5 % (11.5-14.5); WHITE BLOOD COUNT 9.3 K/uL (4.8-10.8)
[2018-05-13 18:54] LABS: ALB/GLOB RATIO 1.3 (1.0-2.1); ALBUMIN 5.1 g/dL (3.5-5.0); ALT/SGPT < 6 U/L (9-52); AST/SGOT 25 U/L (14-36); BLOOD UREA NITROGEN 45 mg/dL (7-17); CALCIUM 10.1 mg/dl (8.6-10.4); GFR NON-AFRICAN AMERICAN 6; LIPASE 652 U/L (23-300)
--- NOTE | 2018-05-13 19:48 | C.PDOC ---
History Of Present Illness Patient is a 48 year old female who presents to the ED c/o diarrhea, vomiting, and abdominal pain. Patient has many prior visits for similar symptoms related to her pancreatitis. She denies any CP, SOB, fever, or chills. Time Seen by Provider: 05/13/18 17:36 Chief Complaint (Nursing): Abdominal Pain History Per: Patient History/Exam Limitations: no limitations Current Symptoms Are (Timing): Still Present Associated Symptoms: Vomiting, Diarrhea. denies: Fever, Chills, Chest Pain, Constipation Recent travel outside of the [place]: No Additional History Per: Patient Past Medical History Reviewed: Historical Data, Nursing Documentation, Vital Signs Vital Signs: Last Vital Signs Temp 98.5 F 05/13/18 17:19 Pulse 88 05/13/18 17:19 Resp 17 05/13/18 17:19 BP 128/90 05/13/18 17:50 Pulse Ox 96 05/13/18 17:19 - Medical History PMH: CHF, HTN, Pancreatitis, End Stage Renal Disease, Chronic Kidney Disease Denies: Crohn's Disease, Diverticulitis, Gastritis, Gall Bladder Disease Surgical History: No Surg Hx - [facility] Procedures (10/10/17) EXCISION OF STOMACH, ENDO, DIAGN (04/12/18) Family History: States: No Known Family Hx - Social History Hx Alcohol Use: No Hx Substance Use: No - Immunization History Hx Tetanus Toxoid Vaccination: No Hx Influenza Vaccination: Yes Hx Pneumococcal Vaccination: Yes Review Of Systems Constitutional: Negative for: Fever, Chills Cardiovascular: Negative for: Chest Pain Respiratory: Negative for: Shortness of Breath Gastrointestinal: Positive for: Vomiting, Abdominal Pain, Diarrhea Physical Exam - Physical Exam Appears: Non-toxic, No Acute Distress, Other (black female appears older than stated age ) Skin: Normal Color, Warm, Dry Head: Atraumatic, Normacephalic Oral Mucosa: Moist Neck: Normal ROM, Supple Chest: Symmetrical, No Deformity Cardiovascular: Rhythm Regular, No Murmur Respiratory: Normal Breath Sounds, No Rales, No Rhonchi, No Wheezing Gastrointestinal/Abdominal: Soft, Tenderness (nontender in epigastric region but tender in lower abdomen) Neurological/Psych: Oriented x3, Normal Speech, Normal Cognition ED Course And Treatment - Laboratory Results Result Diagrams: 05/13/18 18:00 05/13/18 18:00 Lab Results: Total Bilirubin 0.3 mg/dL (0.2-1.3) 05/13/18 18:00 AST 25 U/L (14-36) 05/13/18 18:00 ALT < 6 U/L (9-52) L 05/13/18 18:00 Alkaline Phosphatase 660 U/L (38-126) H D 05/13/18 18:00 Total Protein 9.1 g/dL (6.3-8.3) H 05/13/18 18:00 Albumin 5.1 g/dL (3.5-5.0) H 05/13/18 18:00 Globulin 4.0 gm/dL (2.2-3.9) H 05/13/18 18:00 Albumin/Globulin Ratio 1.3 (1.0-2.1) 05/13/18 18:00 Lipase 652 U/L (23-300) H 05/13/18 18:00 Beta HCG, Quant 6.38 mIU/ML 05/13/18 18:00 Lab Interpretation: Abnormal (c/w ESRD on HD) Urine POC: Negative O2 Sat by Pulse Oximetry: 96 (on RA) Pulse Ox Interpretation: Normal - Radiology CXR: Interpreted by Me CXR Interpretation: Yes: No Acute Disease - Other Rad abd x 2 X-Ray: Interpreted by Me (few AF levels and scant stool, increased gas, c/w pt h/o diarrhea) Medical Decision Making Medical Decision Making: Plan: Labs Urinalysis HCG Urinalysis Maalox Plus 30ml PO diarrhea normal w/u ok to f/u as opt Disposition Doctor Will See Patient In The: Office Counseled Patient/Family Regarding: Studies Performed, Diagnosis - Disposition Disposition: HOME/ ROUTINE Disposition Time: 20:32 Condition: GOOD Forms: [facility] (Guyanese) - Clinical Impression Clinical Impression: Diarrhea - Scribe Statement The provider has reviewed the documentation as recorded by the Ravinibjesus Saldana All medical record entries made by the Scribe were at my direction and personally dictated by me. I have reviewed the chart and agree that the record accurately reflects my personal performance of the history, physical exam, medical decision making, and the department course for this patient. I have also personally directed, reviewed, and agree with the discharge instructions and disposition.
[2018-05-13 21:12] VITALS: BP 125/87; PULSE 84; RESP 16; TEMP 98.4
--- NOTE | 2018-05-14 10:56 | RAD ---
Date of service: 05/13/2018 PROCEDURE: Radiographs of the chest and abdomen (obstructive series) HISTORY: ABD DISCOMFORT COMPARISON: No prior. TECHNIQUE: AP radiograph of the chest, with upright and supine radiographs of the abdomen. 3 views obtained. FINDINGS: CHEST: Lungs: The lungs are well inflated and clear. Cardiovascular: Normal size heart. No pulmonary vascular congestion. No aortic atherosclerotic calcification present Pleura: No pleural fluid. No pneumothorax. Other findings: None. ABDOMEN AND PELVIS: Bowel: There is mild gaseous distension of the colon and multiple small differential air-fluid levels in the small bowel loops. No evidence of mechanical obstruction. Free air: None. Bones: Unremarkable. Other findings: None. IMPRESSION: Findings are most compatible with diarrhea. Non obstructive bowel gas pattern. Mild gaseous distension of the colon. Clear lungs.
== END 2018-05-13 21:13 | disposition home or self-care (01) ==
LOC: C.ER 17:03
DX: R19.7 Diarrhea, unspecified (principal)

== ENCOUNTER 2018-05-15 13:07 | Emergency (ER) | payer MEDICAID ==
--- NOTE | 2018-05-15 13:58 | C.PDOC ---
History Of Present Illness 48 y/o female presents to ED with complaints of diarrhea for the past 3 days, associated with mild abdominal cramping. Patient states she had 3-4 episodes of nonbloody diarrhea. She tried taking imodium but with no relief. She was seen here 2 days ago in the ER for similar complaint. She also complains of nauseousness but no vomiting. Patient does report she has history of pancreatitis and ESRD, on dialysis. States she went for full dialysis yesterday. Otherwise she denies fever, chills, dizziness, lightheadedness, or any sick contacts. Admits she has been drinking and denies any changes in her diet. Time Seen by Provider: 05/15/18 13:19 Chief Complaint (Nursing): Abdominal Pain History Per: Patient History/Exam Limitations: no limitations Onset/Duration Of Symptoms: Days Current Symptoms Are (Timing): Still Present Past Medical History Reviewed: Historical Data, Nursing Documentation, Vital Signs Vital Signs: Last Vital Signs Temp Pulse 114 H 05/15/18 13:10 Resp 20 05/15/18 13:10 BP 154/79 H 05/15/18 13:10 Pulse Ox - Medical History PMH: CHF, HTN, Pancreatitis, End Stage Renal Disease, Chronic Kidney Disease Denies: Crohn's Disease, Diverticulitis, Gastritis, Gall Bladder Disease - [facility] Procedures (10/10/17) EXCISION OF STOMACH, ENDO, DIAGN (04/12/18) Family History: States: No Known Family Hx - Social History Hx Alcohol Use: No Hx Substance Use: No - Immunization History Hx Tetanus Toxoid Vaccination: No Hx Influenza Vaccination: Yes Hx Pneumococcal Vaccination: No Review Of Systems Constitutional: Negative for: Fever, Chills Cardiovascular: Negative for: Chest Pain, Light Headedness Respiratory: Negative for: Shortness of Breath Gastrointestinal: Positive for: Abdominal Pain (mild), Diarrhea Skin: Negative for: Rash Neurological: Negative for: Headache, Dizziness Physical Exam - Physical Exam Appears: Non-toxic, No Acute Distress Skin: Warm, Dry Head: Atraumatic, Normacephalic Eye(s): bilateral: Normal Inspection Oral Mucosa: Moist Neck: Supple Cardiovascular: Rhythm Regular (tachycardic), No Murmur Respiratory: Normal Breath Sounds, No Rales, No Rhonchi, No Wheezing Gastrointestinal/Abdominal: Bowel Sounds (normoactive), Soft, No Tenderness, No Guarding, No Rebound Extremity: Bilateral: Atraumatic, Normal ROM Neurological/Psych: Oriented x3, Normal Speech ED Course And Treatment - Laboratory Results Result Diagrams: 05/15/18 15:50 05/15/18 15:50 Lab Interpretation: No Acute Changes Progress Note: Patient remains comfortable in Ed. She tolerated a full meal and drank juice but was unable to provide a stool specimen. Medical Decision Making Medical Decision Making: Plan: --Labs Disposition Counseled Patient/Family Regarding: Studies Performed, Diagnosis, Need For Followup, Rx Given - Disposition Referrals: Phylicia Vega MD [Staff Provider] - Disposition: HOME/ ROUTINE Disposition Time: 17:09 Condition: STABLE Prescriptions: Saccharomyces Boulardi [Florastor] 250 mg PO DAILY #100 cap Instructions: Diarrhea in Adolescents and Adults, [place] Diet Forms: [employer] [facility] (Frisian) - Clinical Impression Clinical Impression: Diarrhea, ESRD (end stage renal disease) on dialysis - Scribe Statement The provider has reviewed the documentation as recorded by the Berto Booker Provider Attestation: All medical record entries made by the Ravinibjesus were at my direction and personally dictated by me. I have reviewed the chart and agree that the record accurately reflects my personal performance of the history, physical exam, medical decision making, and the department course for this patient. I have also personally directed, reviewed, and agree with the discharge instructions and disposition.
[2018-05-15 15:56] LABS: BASO # 0.1 K/uL (0.0-0.2); BASO % 0.8 % (0.0-2.0); EOS # 0.1 K/uL (0.0-0.7); HEMOGLOBIN 11.8 g/dL (11.0-16.0); LYMPH # 1.8 K/uL (1.0-4.3); LYMPH % 22.4 % (20.0-40.0); MEAN CELL VOLUME 78.5 fL (81.0-99.0); MEAN CORPUSCULAR HEMOGLOBIN 25.4 pg (27.0-31.0); MEAN CORPUSCULAR HGB CONC 32.3 g/dL (33.0-37.0); MEAN PLATELET VOLUME 8.2 fL (7.2-11.7); MONO # 0.5 K/uL (0.0-0.8); MONO % 6.8 % (0.0-10.0); NEUT # 5.4 K/uL (1.8-7.0); RBC 4.64 Mil/uL (3.80-5.20); RED CELL DISTRIBUTION WIDTH 19.3 % (11.5-14.5); WHITE BLOOD COUNT 7.8 K/uL (4.8-10.8)
[2018-05-15 16:20] LABS: ALB/GLOB RATIO 1.3 (1.0-2.1); ALBUMIN 4.6 g/dL (3.5-5.0)
[2018-05-15 16:56] VITALS: BP 152/90; PULSE 77; RESP 14; TEMP 97.9; O2SAT 96
== END 2018-05-15 17:24 | disposition home or self-care (01) ==
LOC: C.ER 13:07
DX: R19.7 Diarrhea, unspecified (principal); N18.6 End stage renal disease; Z99.2 Dependence on renal dialysis

== ENCOUNTER 2018-05-30 16:03 | Observation (INO) | payer MEDICAID ==
[2018-05-30 16:08] VITALS: BMI 22.3
[2018-05-30] MEDS ORDERED: Sodium Chloride 0.9% 500 ML IV ONE (16:24)
[2018-05-30] MEDS ORDERED: Morphine 4 MG/ML VIAL ONE (17:19)
--- NOTE | 2018-05-30 17:26 | C.PDOC ---
History Of Present Illness 48-year-old female presents to the emergency department with complaints of multiple episodes of watery diarrhea since 6 AM this morning, associated with epigastric abdominal pain; patient states current symptoms are consistent with prior episode of pancreatitis. Patient has associated nausea, but denies vomiting, chest pain, shortness of breath, palpitations, blood in vomit or stool. PMHx of ESRD on HD (M,W,F), last dialysis was thursday. PMhx: HTN, CHF, ESRD on HD, pancreatitis Time Seen by Provider: 05/30/18 16:14 Chief Complaint (Nursing): GI Problem History Per: Patient History/Exam Limitations: no limitations Onset/Duration Of Symptoms: Hrs Current Symptoms Are (Timing): Still Present Location Of Pain/Discomfort: Epigastric Quality Of Discomfort: "Pain" Associated Symptoms: Nausea, Diarrhea. denies: Fever, Chills, Vomiting, Chest Pain, Other (shortness of breath, GI bleed) Past Medical History Reviewed: Historical Data, Nursing Documentation, Vital Signs Vital Signs: Last Vital Signs Temp 97.9 F 05/30/18 16:12 Pulse 93 H 05/30/18 16:12 Resp 20 05/30/18 16:12 BP 157/104 H 05/30/18 16:12 Pulse Ox 98 05/30/18 16:12 - Medical History PMH: CHF, HTN, Pancreatitis, End Stage Renal Disease, Chronic Kidney Disease Surgical History: No Surg Hx - [facility] Procedures (10/10/17) EXCISION OF STOMACH, ENDO, DIAGN (04/12/18) Family History: States: No Known Family Hx - Social History Hx Alcohol Use: No Hx Substance Use: No - Immunization History Hx Tetanus Toxoid Vaccination: No Hx Influenza Vaccination: Yes Hx Pneumococcal Vaccination: No Review Of Systems Constitutional: Negative for: Fever, Chills Cardiovascular: Negative for: Chest Pain, Palpitations Respiratory: Negative for: Shortness of Breath Gastrointestinal: Positive for: Nausea, Abdominal Pain, Diarrhea. Negative for: Vomiting, Melena, Hematochezia Skin: Negative for: Rash Physical Exam - Physical Exam Appears: Well, Non-toxic, In Acute Distress (in mild pain ), Chronically Ill Skin: Normal Color, Warm, Dry, No Rash Head: Normacephalic Eye(s): bilateral: Normal Inspection Oral Mucosa: Moist Neck: Normal, Supple Cardiovascular: Rhythm Regular, Murmur (4/6 holosystolic murmur) Respiratory: Normal Breath Sounds, No Rales, No Rhonchi, No Wheezing Gastrointestinal/Abdominal: Bowel Sounds, Soft, Tenderness (epigastric TTP), No Guarding, No Rebound, Other (obese, negative McBurney's, negative Christie's) Back: Normal Inspection, No CVA Tenderness Extremity: Normal ROM, Other (right arm AV fistula with palpable thrill) Neurological/Psych: Oriented x3 ED Course And Treatment O2 Sat by Pulse Oximetry: 98 (RA) Pulse Ox Interpretation: Normal Progress Note: Blood work ordered. Patient given IV morphine, small IV bolus NS. Disposition - Disposition Disposition Time: 18:00 Condition: STABLE Forms: [facility] (Barbadian) - Clinical Impression Clinical Impression: Epigastric abdominal pain, Diarrhea - Scribe Statement The provider has reviewed the documentation as recorded by the Scribe (Romaine Mustafa) Provider Attestation: All medical record entries made by the Scribe were at my direction and personally dictated by me. I have reviewed the chart and agree that the record accurately reflects my personal performance of the history, physical exam, medical decision making, and the department course for this patient. I have also personally directed, reviewed, and agree with the discharge instructions and disposition. Physician Patient Turnover Patient Signed Over To: Brittnee Christian Handoff Comments: pending labs, reassessment
[2018-05-30 17:56] LABS: BASO # 0.1 K/uL (0.0-0.2); BASO % 0.6 % (0.0-2.0); EOS # 0.1 K/uL (0.0-0.7); EOS % 0.7 % (0.0-4.0); HEMOGLOBIN 13.1 g/dL (11.0-16.0); LYMPH % 10.6 % (20.0-40.0); MEAN CELL VOLUME 80.7 fL (81.0-99.0); MEAN CORPUSCULAR HEMOGLOBIN 26.3 pg (27.0-31.0); MEAN CORPUSCULAR HGB CONC 32.6 g/dL (33.0-37.0); MEAN PLATELET VOLUME 8.3 fL (7.2-11.7); MONO # 0.4 K/uL (0.0-0.8); MONO % 3.7 % (0.0-10.0); NEUT # 8.3 K/uL (1.8-7.0); NEUT % 84.4 % (50.0-75.0); NRBC % 0.2 % (0.0-2.0); RBC 4.97 Mil/uL (3.80-5.20); WHITE BLOOD COUNT 9.9 K/uL (4.8-10.8)
[2018-05-30 19:33] LABS: ALB/GLOB RATIO 1.3 (1.0-2.1); ALBUMIN 4.6 g/dL (3.5-5.0); CALCIUM 10.1 mg/dl (8.6-10.4)
[2018-05-31] MEDS: (Novolin R) Insulin Human Regular 100 units/ml vial SC SCH ×4 (08:21→21:54)
[2018-05-31] MEDS: Multivitamin Vitamin B Complex (Nephro-Vite) Tab PO SCH (09:49)
[2018-05-31] MEDS: Saccharomyces Boulardi 250 mg Cap PO SCH (09:50)
--- NOTE | 2018-05-31 17:46 | PN ---
DATE: 05/31/2018 LOCATION: 350, bed B. SUBJECTIVE: This 48-year-old female seen and examined in rounds was initially for GI consultation on 05/30/2018, reexamined again today with intermittent periods of abdominal pain with intermittent periods of mild shortness of breath, generalized weakness, and malaise. The entire chart is reviewed including the most recent lab and radiology study results and today's lab result show blood glucose level of 109. Yesterday's lab showed elevated serum lipase to 414. PHYSICAL EXAMINATION: GENERAL: A 48-year-old female. VITAL SIGNS: Afebrile with pulse of 90, respiratory rate 20 to 22, blood pressure of 160/92. HEENT: Pale, dry oral mucous membrane. Nonicteric sclerae. LUNGS: Few scattered crepitation. Decreased air entry at bases. HEART: Positive S1 and S2. ABDOMEN: Soft with mild generalized tenderness. No mass or organomegaly. No rebound tenderness or guarding. EXTREMITIES: Without significant edema, clubbing, or cyanosis. NEUROLOGIC: No reported new neurological deficit, sensory or motor. IMPRESSION: 1. Acute pancreatitis in a patient with known history of chronic renal failure, on hemodialysis. 2. Re-exacerbation of peptic ulcer disease. 3. Multiple past medical history including but not limited to hypertension, congestive heart failure. SUGGESTIONS: 1. Agree with your plan. 2. IV antibiotics. Proton pump inhibitors IV. Flagyl IV. 3. Keep the patient n.p.o. until serum lipase, amylase level normal or near normal. 4. Abdominal ultrasound. Further recommendation to follow. Rosario Jaquez MD
[2018-05-31] MEDS ORDERED: Rosuvastatin Calcium 2.5 mg Tab PO SCH (22:00)
--- NOTE | 2018-05-31 22:33 | CP.PCM.HP ---
Present on Admission - Present on Admission Any Indicators Present on Admission: No Past Patient History - Infectious Disease Hx of Infectious Diseases: None - Past Medical History & Family History Past Medical History?: Yes - Past Social History Smoking Status: Never Smoked - CARDIAC Hx Congestive Heart Failure: Yes Hx Hypertension: Yes - PULMONARY Hx Respiratory Disorders: No - NEUROLOGICAL Hx Neurological Disorder: No HX Cerebrovascular Accident: Yes (left sided weakness) - HEENT Hx HEENT Problems: No - RENAL Hx Chronic Kidney Disease: Yes - ENDOCRINE/METABOLIC Hx Endocrine Disorders: Yes Hx Diabetes Mellitus Type 2: Yes - HEMATOLOGICAL/ONCOLOGICAL Hx Blood Disorders: No Hx Cirrhosis: No Hx Hepatitis A: No Hx Hepatitis B: No Hx Hepatitis C: No - INTEGUMENTARY Hx Dermatological Problems: No - MUSCULOSKELETAL/RHEUMATOLOGICAL Hx Falls: No - GASTROINTESTINAL Hx Pancreatitis: Yes - GENITOURINARY/GYNECOLOGICAL Hx Genitourinary Disorders: No - PSYCHIATRIC Hx Substance Use: No - SURGICAL HISTORY Hx Surgeries: Yes Hx Section: Yes (X2) Hx Vascular Access Device: Yes (RIGHT AV SHUNT 5 YEARS AGO) - ANESTHESIA Hx Anesthesia: Yes Hx Anesthesia Reactions: No Hx Malignant Hyperthermia: No Meds Allergies/Adverse Reactions: Allergies Allergy/AdvReac Type Severity Reaction Status Date / Time No Known Allergies Allergy Verified 05/30/18 16:08 Results - Vital Signs Recent Vital Signs: Last Vital Signs Temp 98.1 F 05/31/18 18:15 Pulse 83 05/31/18 18:15 Resp 17 05/31/18 18:15 BP 130/84 05/31/18 21:54 Pulse Ox 98 05/31/18 18:15 - Labs Result Diagrams: 05/30/18 17:50 05/30/18 19:04 Labs: Laboratory Results - last 24 hr 05/31/18 05/31/18 05/31/18 07:14 11:53 16:36 POC Glucose (mg/dL) 97 109 131 H 05/31/18 21:21 POC Glucose (mg/dL) 113 H
[2018-06-01 00:25] VITALS: RESP 20
--- NOTE | 2018-06-01 04:01 | HP ---
CHIEF COMPLAINT: Epigastric pain, diarrhea x1 day. HISTORY OF PRESENT ILLNESS: This is a 48-year-old -[place] female with a history of CKD, on hemodialysis, hypertension, type 2 diabetes, not on any diabetic medication with history of [id number] recurrent pancreatitis with hospitalization. She denies drinking alcohol and no history of gallbladder stones. The patient developed epigastric pain on the day of the admission, acute onset, sharp, intense, 10/10, associated nausea, vomiting, generalized weakness, diarrhea, no hematemesis, melena, hematochezia. She denies any history of dysuria, hematuria, pyuria. She denies any history of sneezing, itchy eyes, itchy nose. She denies any history of trauma, fall, loss of consciousness. She denies any tingling, numbness in the feet. She denies any hip pain, leg pain, pain is intense and pain is with food and without food. There is no history of trauma or fall. There is no cough, sore throat, runny nose. CURRENT MEDICATIONS AT HOME: Norvasc, Zocor, Renvela, Florastor, Protonix, Sensipar, Coreg, multivitamin. SOCIAL HISTORY: She denies smoking or drinking. FAMILY HISTORY: Negative for pancreatitis. PHYSICAL EXAMINATION: GENERAL: A middle-aged female in kehk-[id number] distress. VITAL SIGNS: Blood pressure 127/81, pulse 83, respiratory rate 17, temperature 98.1. SKIN: Senile turgor, no bruises, no purpura, dry. HEENT: Atraumatic, normocephalic, negative pallor, negative jaundice. Extraocular movements are intact. NECK: Supple. No JVD. No lymph node. No thyromegaly. No carotid bruit. CHEST: Bilaterally symmetrical extension. LUNGS: Clear. No rales. No rhonchi. CARDIOVASCULAR SYSTEM: S1, S2. Regular. ABDOMEN: Positive epigastric tenderness and with some guarding. No rebound. No rigidity. Bowel sounds are normoactive and present. RECTAL: Negative. PELVIC: No discharge. CENTRAL NERVOUS SYSTEM: Awake, alert, oriented x3. Cranial nerves II through XII are normal. ASSESSMENT: 1. Jntxa-kn-jhtyanc pancreatitis, etiology of pancreatitis seems to be kidney disease, less likely to be gallbladder disease or alcohol. There is a question of alcohol. 2. Chronic kidney disease, on hemodialysis. 3. Hypertension. 4. Type 2 diabetes, not on any medication. PLAN: Monitor the patient. Phuc Young MD
[2018-06-01] MEDS: (Novolin R) Insulin Human Regular 100 units/ml vial SC SCH ×3 (08:06→17:23)
--- NOTE | 2018-06-01 08:06 | PN ---
DATE: 06/01/2018 LOCATION: Room 350, bed B. SUBJECTIVE: This is a 48-year-old female seen and examined early in rounds without significant clinical changes or evidence of active bleeding, but intermittent period of abdominal pain. The entire chart is reviewed including but not limited to the most recent lab and radiology study results, current and the previous medication list, current and the previous medical events. Today's lab results are still pending, and the patient reported no active bleeding but nausea with dyspepsia. No reported actual chest pain or palpitation. PHYSICAL EXAMINATION: GENERAL: A 48-year-old female, complaining of abdominal pain. VITAL SIGNS: Afebrile with pulse of 74, respiratory 20-22, blood pressure 110/74. HEENT: Showed pale, dry oral mucous membrane mildly, with nonicteric sclerae. LUNGS: Few scattered crepitation. Decreased air entry at bases. HEART: Positive S1 and S2. ABDOMEN: Soft with mild generalized tenderness. No mass or organomegaly. No rebound tenderness or guarding. EXTREMITIES: Without significant clubbing, cyanosis or edema. IMPRESSION: 1. Acute pancreatitis, recurrent. 2. Peptic ulcer disease. 3. Known history of hypertension, congestive heart failure. 4. Renal failure. 5. Hyperphosphatemia secondary to above. SUGGESTIONS: 1. Agree with your plan. 2. Repeat serum lipase, amylase level. 3. Abdominal ultrasound. 4. Further recommendation to follow. Rosario Jaquez MD
[2018-06-01] MEDS ORDERED: Pantoprazole 40 mg EC Tab PO SCH (10:00)
[2018-06-01] MEDS: Multivitamin Vitamin B Complex (Nephro-Vite) Tab PO SCH (11:34)
[2018-06-01] MEDS: Saccharomyces Boulardi 250 mg Cap PO SCH (11:35)
[2018-06-01 15:57] VITALS: BP 110/64; PULSE 71; TEMP 98; O2SAT 97
--- NOTE | 2018-06-01 16:45 | CP.PCM.PN ---
Subjective - Date & Time of Evaluation Date of Evaluation: 06/01/18 Time of Evaluation: 16:44 - Subjective Subjective: PATIENT SEEN AND EXAMINED AT THE BEDSIDE Objective - Vital Signs/Intake and Output Vital Signs (last 24 hours): Temp Pulse Resp BP Pulse Ox 98 F 71 20 110/64 97 06/01/18 15:56 06/01/18 15:56 06/01/18 15:56 06/01/18 15:56 06/01/18 16:35 Intake and Output: 06/01/18 06/01/18 06:59 18:59 Intake Total 400 Balance 400 - Medications Medications: Current Medications Amlodipine Besylate (Norvasc) 10 mg PO DAILY [facility] Last Admin: 06/01/18 11:35 Dose: 10 mg Carvedilol (Coreg) 25 mg PO Q12H [facility] Last Admin: 06/01/18 11:36 Dose: 25 mg Cinacalcet (Sensipar) 30 mg PO DAILY [facility] Last Admin: 06/01/18 11:35 Dose: 30 mg Heparin Sodium (Porcine) (Heparin) 5,000 units SC Q8 [facility] Last Admin: 06/01/18 13:16 Dose: Not Given Insulin Human Regular (Novolin R) 0 unit SC ACHS [facility]; Protocol Last Admin: 06/01/18 11:37 Dose: Not Given Morphine Sulfate (Morphine) 1 mg SC Q4 PRN PRN Reason: Pain, moderate (4-7) Last Admin: 06/01/18 13:24 Dose: 1 mg Pantoprazole Sodium (Protonix Ec Tab) 40 mg PO DAILY [facility] Last Admin: 06/01/18 11:34 Dose: 40 mg Rosuvastatin Calcium (Crestor) 2.5 mg PO HS [facility] Last Admin: 05/31/18 21:52 Dose: 2.5 mg Saccharomyces Boulardii (Florastor) 250 mg PO DAILY [facility] Last Admin: 06/01/18 11:35 Dose: 250 mg Sevelamer Carbonate (Renvela) 800 mg PO TID [facility] Last Admin: 06/01/18 13:28 Dose: 800 mg Vitamin B Complex/Vit C/Folic Acid (Nephro-Divya) 1 tab PO DAILY [facility] Last Admin: 06/01/18 11:34 Dose: 1 tab - Labs Labs: 05/30/18 17:50 05/30/18 19:04 Assessment and Plan - Assessment and Plan (Free Text) Assessment: FOLLOW UP WITH DR JONES IN HIS OFFICE FOLLOW UP WITH DR ABDI IN HIS OFFICE FOLLOW UP WITH DR MOORE CONTINUE HOME MEDICATION ACTIVITY TOLERATED CALL DR JONES OR GO TO THE EMERGENCY ROOM IF SYMPTOM RETURN OR WORSENING
--- NOTE | 2018-06-01 21:29 | CP.PCM.PN ---
Subjective - Date & Time of Evaluation Date of Evaluation: 06/01/18 Time of Evaluation: 08:00 - Subjective Subjective: dict Objective - Vital Signs/Intake and Output Vital Signs (last 24 hours): Temp Pulse Resp BP Pulse Ox 98 F 71 20 110/64 97 06/01/18 15:56 06/01/18 15:56 06/01/18 15:56 06/01/18 15:56 06/01/18 16:35 - Medications Medications: Current Medications Amlodipine Besylate (Norvasc) 10 mg PO DAILY [facility] Last Admin: 06/01/18 11:35 Dose: 10 mg Carvedilol (Coreg) 25 mg PO Q12H [facility] Last Admin: 06/01/18 11:36 Dose: 25 mg Cinacalcet (Sensipar) 30 mg PO DAILY [facility] Last Admin: 06/01/18 11:35 Dose: 30 mg Heparin Sodium (Porcine) (Heparin) 5,000 units SC Q8 [facility] Last Admin: 06/01/18 13:16 Dose: Not Given Insulin Human Regular (Novolin R) 0 unit SC [facility]; Protocol Last Admin: 06/01/18 17:23 Dose: Not Given Morphine Sulfate (Morphine) 1 mg SC Q4 PRN PRN Reason: Pain, moderate (4-7) Last Admin: 06/01/18 13:24 Dose: 1 mg Pantoprazole Sodium (Protonix Ec Tab) 40 mg PO DAILY [facility] Last Admin: 06/01/18 11:34 Dose: 40 mg Rosuvastatin Calcium (Crestor) 2.5 mg PO HS [facility] Last Admin: 05/31/18 21:52 Dose: 2.5 mg Saccharomyces Boulardii (Florastor) 250 mg PO DAILY [facility] Last Admin: 06/01/18 11:35 Dose: 250 mg Sevelamer Carbonate (Renvela) 800 mg PO TID [facility] Last Admin: 06/01/18 17:25 Dose: 800 mg Vitamin B Complex/Vit C/Folic Acid (Nephro-Divya) 1 tab PO DAILY [facility] Last Admin: 06/01/18 11:34 Dose: 1 tab - Labs Labs: 05/30/18 17:50 05/30/18 19:04
--- NOTE | 2018-06-02 01:10 | PN ---
DATE: 06/01/2018 SUBJECTIVE: Tila Zuniga has decreased abdominal pain, nausea, no vomiting. No fever. She is status post hemodialysis. No chest pain. No cough. PHYSICAL EXAMINATION: VITAL SIGNS: Blood pressure 125/78, pulse 80, respiratory rate 20, temperature 98.1. LUNGS: Clear. CARDIOVASCULAR SYSTEM: S1 and S2, regular. ABDOMEN: Soft and nontender. Bowel sounds are positive. ASSESSMENT: 1. Pancreatitis, resolved. 2. Chronic kidney disease, on hemodialysis. 3. Hypertension. PLAN: Medical management. Monitor patient. Phuc Young MD
--- NOTE | 2018-06-02 03:39 | CON ---
DATE: 05/30/2018 LOCATION: 350, bed B. Dianne was called for GI consultation by the admitting medical team. The patient is seen and fully examined on 05/30/2018, as requested by the admitting MD in the presence of the staff in the floor. The entire chart is reviewed, including but not limited to the most recent lab and radiology study results, current and the previous medication list, current and the previous medical records and events. Case discussed with the staff at length on 05/30/2018 before and immediately after my GI consultation. HISTORY OF PRESENT ILLNESS: This is a 48-year-old female, very well-known case for me from previous admission, was admitted to the hospital through the emergency room with the main complaint of severe abdominal pain, recurrent episode of nausea and vomiting associated with multiple episodes of diarrhea, postprandial abdominal distention. She was found to have elevated serum lipase level at the time of admission, indicative of recurrent acute pancreatitis. PAST MEDICAL HISTORY: Including but not limited to: 1. End-stage renal disease, on hemodialysis. 2. Peptic ulcer disease. 3. Hypertension with congestive heart failure. 4. Recurrent episode of pancreatitis. FAMILY HISTORY: Noncontributory. SOCIAL HISTORY: Denied any recent history of alcohol intake or cigarette smoking. CURRENT MEDICATIONS: Post admission medication lists were reviewed. ALLERGIES TO MEDICATIONS: UNKNOWN. On record, the patient denied any actual chest pain, palpitation, chills or fever at that time. LABORATORY DATA: Initial blood workup at the time of admission showed normal CBC with low indices with BUN 83, creatinine 9.2 with alkaline phosphatase 603, and lipase 414. PHYSICAL EXAMINATION: GENERAL: A 48-year-old female. VITAL SIGNS: Afebrile with pulse of 90, respiratory rate of 20 to 22, blood pressure 152/102. HEENT: Mildly pale, dry, oral mucous membrane. Nonicteric sclerae. LUNGS: Few scattered crepitation. Decreased air entry at bases. HEART: Positive S1 and S2. ABDOMEN: Soft with mild generalized tenderness. No mass or organomegaly. No rebound tenderness or guarding, but abdominal distention. RECTAL: Examination, the patient refused. EXTREMITIES: Without significant clubbing, cyanosis, or edema. NEUROLOGIC: No reported new neurological deficits, sensory or motor. IMPRESSION: 1. Re-exacerbation of acute pancreatitis. 2. Multiple past medical history as mentioned above. 3. Re-exacerbation of peptic ulcer disease. The patient recently had upper endoscopy with biopsy. 4. Diarrhea, infectious versus mechanical. SUGGESTIONS: 1. Agree with your plan. 2. Keep n.p.o. for now until serum lipase and amylase level normal or near normal. 3. Abdominal ultrasound in the biliary tree and pancreas. 4. Nephrology consultation. 5. Her blood pressure which is poorly controlled to be well controlled, aggressively. 6. Complete stool analysis. 7. Cancer markers including CEA. 8. T3, T4, and TSH. No need for aggressive GI workup in the meantime. Further recommendations to follow. Thank you for letting me participate in your patient's case management. Rosario Jaquez MD
== END 2018-06-01 22:50 | disposition home or self-care (01) ==
LOC: C.ER 16:03 → C.9E 19:58 → C.3T 20:29
PROVIDERS: ADMIT Internal Medicine; ATTEND Internal Medicine
DX: K85.90 Acute pancreatitis without necrosis or infection, unspecified (principal); N18.6 End stage renal disease; I13.2 Hypertensive heart and chronic kidney disease with heart failure and with stage 5 chronic kidney disease, or end stage renal disease; I50.9 Heart failure, unspecified; I69.354 Hemiplegia and hemiparesis following cerebral infarction affecting left non-dominant side; E11.22 Type 2 diabetes mellitus with diabetic chronic kidney disease; K86.1 Other chronic pancreatitis; Z99.2 Dependence on renal dialysis; K27.3 Acute peptic ulcer, site unspecified, without hemorrhage or perforation; E83.39 Other disorders of phosphorus metabolism
CPT/HCPCS: 80053; 82948; 83690; 85025; 99285; C9113; G0257; G0378; J2270; J2405

== ENCOUNTER 2018-07-09 19:15 | Observation (INO) | payer MEDICAID ==
[2018-07-09 19:16] VITALS: BMI 22.3
--- NOTE | 2018-07-09 22:08 | C.PDOC ---
History Of Present Illness 48 y/o female is brought in by ambulance complaining of epigastric pain. Patient had many prior evaluations for pancreatitis. Denies fever, nausea, vomiting, diarrhea, or other complaints. Time Seen by Provider: 07/09/18 19:56 Chief Complaint (Nursing): Abdominal Pain History Per: Patient History/Exam Limitations: no limitations Onset/Duration Of Symptoms: Days Current Symptoms Are (Timing): Still Present Past Medical History Reviewed: Historical Data, Nursing Documentation, Vital Signs Vital Signs: Last Vital Signs Temp 99.1 F 07/09/18 19:30 Pulse 123 H 07/09/18 19:30 Resp 22 07/09/18 19:30 BP 143/100 H 07/09/18 19:30 Pulse Ox 95 07/09/18 19:30 Primary Care Provider: Phylicia Vega I - Medical History PMH: CHF, HTN, Pancreatitis, End Stage Renal Disease, Chronic Kidney Disease Denies: Crohn's Disease, Diverticulitis, Gastritis, Gall Bladder Disease - [facility] Procedures (10/10/17) EXCISION OF STOMACH, ENDO, DIAGN (04/12/18) Family History: States: No Known Family Hx - Social History Hx Alcohol Use: No Hx Substance Use: No - Immunization History Hx Tetanus Toxoid Vaccination: No Hx Influenza Vaccination: Yes Hx Pneumococcal Vaccination: No Review Of Systems Except As Marked, All Systems Reviewed And Found Negative. Gastrointestinal: Positive for: Abdominal Pain. Negative for: Nausea, Vomiting, Diarrhea Genitourinary: Negative for: Dysuria, Hematuria, Vaginal Discharge, Vaginal Bleeding Physical Exam - Physical Exam Appears: Non-toxic, No Acute Distress, Other (plethoric) Skin: Warm, Dry Head: Normacephalic Eye(s): bilateral: Normal Inspection Oral Mucosa: Moist Neck: Supple Cardiovascular: Rhythm Regular, No Murmur Respiratory: Normal Breath Sounds, No Rales, No Rhonchi, No Wheezing Gastrointestinal/Abdominal: Soft, Tenderness (vague epigastric tenderness), No Guarding, No Rebound, Other (obese) Extremity: Bilateral: Atraumatic, Normal Color And Temperature Neurological/Psych: Oriented x3, Normal Speech ED Course And Treatment - Laboratory Results Result Diagrams: 07/09/18 22:25 07/09/18 22:25 Lab Interpretation: Abnormal (lipase 352) Urine POC: Negative O2 Sat by Pulse Oximetry: 95 (RA) Pulse Ox Interpretation: Normal - Radiology CXR: Interpreted by Me CXR Interpretation: Yes: No Acute Disease - Other Rad abd x 2 X-Ray: Interpreted by Me (incrased stool and gas, few AF levels) Reevaluation Time: 23:34 Reassessment Condition: Improved - Physician Consult Information Outcome Of Conversation: 2330: d/w Dr. Young, ok to Med/Surg Obs Medical Decision Making Medical Decision Making: Plan: --EKG --Labs --Obstructive Series --UA Unable to achieve IV access. Nurse asked me to assist. Two failed attempts at the left external jugular vein. Further attempts abandoned. Still with difficulty with IV access. First attempt at the right radial artery, blood drawn, no IV access. lipase 352, low susp of recurrent pancreatitis. follow in AM Access: Consider Mediport vs PICC line as pt with near impossible peripheral access and frequent ED/Adm evals. Disposition Doctor Will See Patient In The: Hospital Counseled Patient/Family Regarding: Studies Performed, Diagnosis - Disposition Disposition: HOSPITALIZED Disposition Time: 23:35 Condition: GOOD Forms: [employer] (Greenlandic) - Clinical Impression Clinical Impression: Chronic abdominal pain - Scribe Statement The provider has reviewed the documentation as recorded by the Berto Booker Provider Attestation: All medical record entries made by the Berto were at my direction and personally dictated by me. I have reviewed the chart and agree that the record accurately reflects my personal performance of the history, physical exam, medical decision making, and the department course for this patient. I have also personally directed, reviewed, and agree with the discharge instructions and disposition.
[2018-07-09 22:33] LABS: BASO # 0.1 K/uL (0.0-0.2); BASO % 0.4 % (0.0-2.0); EOS # 0.1 K/uL (0.0-0.7); EOS % 0.7 % (0.0-4.0); HEMOGLOBIN 12.7 g/dL (11.0-16.0); LYMPH # 1.6 K/uL (1.0-4.3); LYMPH % 10.6 % (20.0-40.0); MEAN CORPUSCULAR HEMOGLOBIN 25.7 pg (27.0-31.0); MEAN CORPUSCULAR HGB CONC 33.4 g/dL (33.0-37.0); MEAN PLATELET VOLUME 7.9 fL (7.2-11.7); MONO % 6.4 % (0.0-10.0); NEUT # 12.3 K/uL (1.8-7.0); NEUT % 81.9 % (50.0-75.0); RBC 4.94 Mil/uL (3.80-5.20); RED CELL DISTRIBUTION WIDTH 17.8 % (11.5-14.5)
[2018-07-09 22:47] LABS: ALB/GLOB RATIO 1.2 (1.0-2.1)
[2018-07-10 01:12] VITALS: RESP 20
[2018-07-10] MEDS: metroNIDAZOLE IV 500 mg/100 ml 250 MG in Premixed IV 1 EA IVPB SCH ×2 (02:11→09:30)
--- NOTE | 2018-07-10 07:38 | RAD ---
Abdomen three views HISTORY: Abdominal pain. COMPARISON: None available. FINDINGS: Multiple distended/mildly dilated loops of small bowel with associated fluid level suggestive for a possible partial small bowel obstruction. Air seen within the colon. Degenerative changes in the spine. Small pulmonary nodule/nodular density projecting over the right upper lung zone. Bibasilar breast and nipple shadows. Diffuse increased interstitial lung markings. Tortuous aorta. Heart size within normal limits. Biapical pleural thickening with upper lobe granulomatous changes. Degenerative changes in the spine and shoulders. Impression: Multiple distended/mildly dilated loops of small bowel with associated fluid levels suggestive for a possible partial small bowel obstruction. Clinical correlation.
[2018-07-10] MEDS ORDERED: Potassium Chloride 20 mEq ER Tab PO ONE (10:00)
[2018-07-10] MEDS: Saccharomyces Boulardi 250 mg Cap PO SCH (10:13)
[2018-07-10] MEDS: Pantoprazole 40 mg EC Tab PO SCH (10:13)
[2018-07-10] MEDS: Multivitamin Vitamin B Complex (Nephro-Vite) Tab PO SCH (10:13)
--- NOTE | 2018-07-10 19:44 | CP.PCM.HP ---
Present on Admission - Present on Admission Any Indicators Present on Admission: No Past Patient History - Infectious Disease Hx of Infectious Diseases: None - Past Medical History & Family History Past Medical History?: Yes - Past Social History Smoking Status: Never Smoked - CARDIAC Hx Congestive Heart Failure: Yes Hx Hypertension: Yes - PULMONARY Hx Respiratory Disorders: No - NEUROLOGICAL Hx Neurological Disorder: No HX Cerebrovascular Accident: Yes (left sided weakness) - HEENT Hx HEENT Problems: No - RENAL Hx Chronic Kidney Disease: Yes - ENDOCRINE/METABOLIC Hx Endocrine Disorders: Yes Hx Diabetes Mellitus Type 2: Yes - HEMATOLOGICAL/ONCOLOGICAL Hx Blood Disorders: No Hx Cirrhosis: No Hx Hepatitis A: No Hx Hepatitis B: No Hx Hepatitis C: No - INTEGUMENTARY Hx Dermatological Problems: No - MUSCULOSKELETAL/RHEUMATOLOGICAL Hx Falls: No - GASTROINTESTINAL Hx Crohn's Disease: No Hx Diverticulitis: No Hx Gall Bladder Disease: No Hx Gastritis: No Hx Pancreatitis: Yes - GENITOURINARY/GYNECOLOGICAL Hx Genitourinary Disorders: No - PSYCHIATRIC Hx Substance Use: No - SURGICAL HISTORY Hx Surgeries: Yes Hx Section: Yes (X2) Hx Vascular Access Device: Yes (RIGHT AV SHUNT 5 YEARS AGO) - ANESTHESIA Hx Anesthesia: Yes Hx Anesthesia Reactions: No Hx Malignant Hyperthermia: No Meds Allergies/Adverse Reactions: Allergies Allergy/AdvReac Type Severity Reaction Status Date / Time No Known Allergies Allergy Verified 05/30/18 16:08 Results - Vital Signs Recent Vital Signs: Last Vital Signs Temp 98.2 F 07/10/18 16:16 Pulse 91 H 07/10/18 16:16 Resp 20 07/10/18 16:16 BP 100/68 07/10/18 16:16 Pulse Ox 95 07/10/18 16:16 - Labs Result Diagrams: 07/09/18 22:25 07/09/18 22:25 Labs: Laboratory Results - last 24 hr 07/09/18 07/09/18 07/09/18 22:25 22:25 22:25 WBC 15.0 H D RBC 4.94 Hgb 12.7 Hct 38.0 MCV 77.0 L D MCH 25.7 L MCHC 33.4 RDW 17.8 H Plt Count 323 D MPV 7.9 Neut % (Auto) 81.9 H Lymph % (Auto) 10.6 L Emmons % (Auto) 6.4 Eos % (Auto) 0.7 Baso % (Auto) 0.4 Neut # (Auto) 12.3 H Lymph # (Auto) 1.6 Emmons # (Auto) 1.0 H Eos # (Auto) 0.1 Baso # (Auto) 0.1 Sodium 137 Potassium 3.5 L Chloride 88 L Carbon Dioxide 31 H Anion Gap 22 H BUN 16 Creatinine 3.7 H Est GFR ( Amer) 16 Est GFR (Non-Af Amer) 13 Random Glucose 110 H D Calcium 11.0 H Total Bilirubin 0.5 AST 28 ALT 11 Alkaline Phosphatase 753 H D Total Protein 9.3 H Albumin 5.0 Globulin 4.3 H Albumin/Globulin Ratio 1.2 Lipase 352 H Beta HCG, Quant 5.09
--- NOTE | 2018-07-11 03:46 | HP ---
CHIEF COMPLAINT: Epigastric pain x1 day. HISTORY OF PRESENT ILLNESS: This is a 48-year-old -[place] female with history of end-stage renal disease on hemodialysis for long time, hypertension, and pancreatitis in the past. She is compliant with diet, medication, and followup with history of weakness, hospitalizations at [facility] and [facility]. She came in because of one day onset of epigastric pain radiating to the back associated with nausea. No vomiting. She denied any diarrhea or constipation. She denied any polyuria, polydipsia, polyphagia. She denied any hematuria, pyuria. She denied any sneezing, itchy eyes, itchy nose. She denies any history of trauma, fall, loss of consciousness. She denied any seizure-like activity. She denied any tingling, numbness, paresthesias. She denies nausea. She has had no joint pian. She is still with epigastric pain. PAST MEDICAL HISTORY: CHF, hypertension, pancreatitis, end-stage renal disease on hemodialysis. SOCIAL HISTORY: She is not smoking, drinking. FAMILY HISTORY: Negative for pancreatitis. CURRENT MEDICATIONS: At home, she is on Norvasc, Zocor, Renvela, Florastor, Protonix, Sensipar, Colace, . PHYSICAL EXAMINATION: GENERAL: Middle-aged female, in mild distress. VITAL SIGNS: Blood pressure 119/51, pulse 91, respiratory rate 20, temperature 98.2. SKIN: Dry. The patient has postinflammatory hyperpigmented scars on the face and on the body. HEENT: Atraumatic, normocephalic. Positive pallor. Negative jaundice. Extraocular movements are intact. NECK: Supple. No JVD. No lymph nodes. No thyromegaly. No carotid bruits. CHEST WALL: Bilateral symmetrical expansion. No tenderness. No deformity. LUNGS: Clear. No rales. No rhonchi. CARDIOVASCULAR SYSTEM: PMI not localized. S1 and S2 plus S4 positive. ABDOMEN: Epigastric tenderness. Bowel sounds are present. Normoactive. No guarding. No rigidity. RECTAL: No masses. No bleed. EXTREMITIES: No clubbing, cyanosis, or edema. CENTRAL NERVOUS SYSTEM: Awake, alert, and oriented x3. Cranial nerves II through XII are normal. Power is 5/5 x4. Plantars are downgoing. ASSESSMENT: 1. Acute pancreatitis, most likely due to bilirubinemia. 2. Chronic kidney disease, on hemodialysis. 3. Hypertension. The patient's blood pressure is on lower side. PLAN: I discontinued Norvasc, and we will observe the patient's blood pressure. Monitor the patient. Phuc Young MD
[2018-07-11 08:04] LABS: BASO # 0.1 K/uL (0.0-0.2); BASO % 0.7 % (0.0-2.0); EOS # 0.2 K/uL (0.0-0.7); EOS % 2.5 % (0.0-4.0); HEMOGLOBIN 10.8 g/dL (11.0-16.0); LYMPH # 1.9 K/uL (1.0-4.3); LYMPH % 25.5 % (20.0-40.0); MEAN CELL VOLUME 77.7 fL (81.0-99.0); MEAN CORPUSCULAR HEMOGLOBIN 26.3 pg (27.0-31.0); MEAN CORPUSCULAR HGB CONC 33.8 g/dL (33.0-37.0); MEAN PLATELET VOLUME 8.2 fL (7.2-11.7); MONO # 0.5 K/uL (0.0-0.8); MONO % 6.4 % (0.0-10.0); NEUT # 4.8 K/uL (1.8-7.0); NEUT % 64.9 % (50.0-75.0); RBC 4.1 Mil/uL (3.80-5.20); RED CELL DISTRIBUTION WIDTH 17.6 % (11.5-14.5)
[2018-07-11 08:06] LABS: WHITE BLOOD COUNT 7.4 K/uL (4.8-10.8)
[2018-07-11 08:24] LABS: ALB/GLOB RATIO 1.2 (1.0-2.1); ALBUMIN 4.3 g/dL (3.5-5.0); CALCIUM 9.5 mg/dl (8.6-10.4)
[2018-07-11] MEDS: Pantoprazole 40 mg EC Tab PO SCH (10:18)
[2018-07-11] MEDS: Saccharomyces Boulardi 250 mg Cap PO SCH (10:18)
[2018-07-11] MEDS: Multivitamin Vitamin B Complex (Nephro-Vite) Tab PO SCH (10:18)
[2018-07-11 17:07] VITALS: BP 124/79; PULSE 85; TEMP 98.4; O2SAT 99
--- NOTE | 2018-07-11 21:03 | CP.PCM.DIS ---
Provider - Provider Date of Admission: 07/09/18 23:31 Attending physician: Phuc Young MD Time Spent in preparation of Discharge (in minutes): 45 Hospital Course - Lab Results Lab Results: Most Recent Lab Values WBC 7.4 K/uL (4.8-10.8) D 07/11/18 07:53 RBC 4.10 Mil/uL (3.80-5.20) 07/11/18 07:53 Hgb 10.8 g/dL (11.0-16.0) L 07/11/18 07:53 Hct 31.9 % (34.0-47.0) L 07/11/18 07:53 MCV 77.7 fL (81.0-99.0) L 07/11/18 07:53 MCH 26.3 pg (27.0-31.0) L 07/11/18 07:53 MCHC 33.8 g/dL (33.0-37.0) 07/11/18 07:53 RDW 17.6 % (11.5-14.5) H 07/11/18 07:53 Plt Count 253 K/uL (130-400) 07/11/18 07:53 MPV 8.2 fL (7.2-11.7) 07/11/18 07:53 Neut % (Auto) 64.9 % (50.0-75.0) 07/11/18 07:53 Lymph % (Auto) 25.5 % (20.0-40.0) 07/11/18 07:53 [place] % (Auto) 6.4 % (0.0-10.0) 07/11/18 07:53 Eos % (Auto) 2.5 % (0.0-4.0) 07/11/18 07:53 Baso % (Auto) 0.7 % (0.0-2.0) 07/11/18 07:53 Neut # (Auto) 4.8 K/uL (1.8-7.0) 07/11/18 07:53 Lymph # (Auto) 1.9 K/uL (1.0-4.3) 07/11/18 07:53 [place] # (Auto) 0.5 K/uL (0.0-0.8) 07/11/18 07:53 Eos # (Auto) 0.2 K/uL (0.0-0.7) 07/11/18 07:53 Baso # (Auto) 0.1 K/uL (0.0-0.2) 07/11/18 07:53 Sodium 136 mmol/L (132-148) 07/11/18 07:53 Potassium 4.4 mmol/L (3.6-5.2) 07/11/18 07:53 Chloride 89 mmol/L (98-107) L 07/11/18 07:53 Carbon Dioxide 30 mmol/L (22-30) 07/11/18 07:53 Anion Gap 21 (10-20) H 07/11/18 07:53 BUN 42 mg/dL (7-17) H 07/11/18 07:53 Creatinine 7.2 mg/dL (0.7-1.2) H 07/11/18 07:53 Est GFR ( Amer) 7 07/11/18 07:53 Est GFR (Non-Af Amer) 6 07/11/18 07:53 Random Glucose 94 mg/dL (65-105) 07/11/18 07:53 Calcium 9.5 mg/dl (8.6-10.4) 07/11/18 07:53 Phosphorus 7.0 mg/dL (2.5-4.5) H 07/11/18 07:53 Magnesium 2.3 mg/dL (1.6-2.3) 07/11/18 07:53 Total Bilirubin 0.3 mg/dL (0.2-1.3) 07/11/18 07:53 AST 18 U/L (14-36) 07/11/18 07:53 ALT 12 U/L (9-52) 07/11/18 07:53 Alkaline Phosphatase 621 U/L (38-126) H 07/11/18 07:53 Total Protein 7.8 g/dL (6.3-8.3) 07/11/18 07:53 Albumin 4.3 g/dL (3.5-5.0) 07/11/18 07:53 Globulin 3.5 gm/dL (2.2-3.9) 07/11/18 07:53 Albumin/Globulin Ratio 1.2 (1.0-2.1) 07/11/18 07:53 Lipase 467 U/L (23-300) H 07/11/18 07:53 Beta HCG, Quant 5.09 mIU/ML 07/09/18 22:25 Discharge Plan - Follow Up Plan Condition: GOOD Disposition: HOME/ ROUTINE Instructions: Heart Failure, Adult (DC), Pancreatitis (DC) Additional Instructions: follow up with primary care doctor in 1 week. continue to take home meds as prescribed. return to the er if symptoms return Referrals: Phuc Young MD [Staff Provider] -
--- NOTE | 2018-07-12 04:32 | DS ---
DISCHARGE DIAGNOSES: 1. Pancreatitis due to uremia. 2. Chronic kidney disease. 3. Hypertension. HISTORY OF PRESENT ILLNESS: This is 48-year-old -Filip[place] female with history of pancreatitis, CKD on hemodialysis, hypertension. The patient is compliant with her diet and medication. She came in because of abdominal pain. The patient was treated empirically. She initially was n.p.o. Later on, we started her on diet and the patient improved. She started eating. She felt better and she is for discharge. Condition upon discharge is stable. She is pain free. She tolerated the solid food well. .Clinically, the patient has not had any evidence of intestinal obstruction. She has a bowel movement. She has bowel sounds and upon abdominal examination, there is no distention, normoactive bowel sounds and the patient is stable. Phuc Young MD
== END 2018-07-11 19:58 | disposition home or self-care (01) ==
LOC: C.ER 19:15 → C.9E 23:31 → C.5S 23:56
PROVIDERS: ADMIT Internal Medicine; ATTEND Internal Medicine
DX: K85.90 Acute pancreatitis without necrosis or infection, unspecified (principal); I13.2 Hypertensive heart and chronic kidney disease with heart failure and with stage 5 chronic kidney disease, or end stage renal disease; E11.22 Type 2 diabetes mellitus with diabetic chronic kidney disease; N18.6 End stage renal disease; I50.9 Heart failure, unspecified; Z99.2 Dependence on renal dialysis; I69.354 Hemiplegia and hemiparesis following cerebral infarction affecting left non-dominant side
CPT/HCPCS: 36415; 74022; 80053; 83690; 83735; 84100; 84702; 85025; 99285; G0378; J1644; J2270